=== PATIENT | female | born 1960 ===

== ENCOUNTER 2018-03-17 20:38 | Inpatient (IN) | payer MEDICARE, OTHER ==
[2018-03-17] MEDS ORDERED: Metoprolol 1 mg/ml Inj IVP ONE ×2 (20:58→21:05)
[2018-03-17 21:09] LABS: BASO # 0.1 K/uL (0.0-0.2); BASO % 0.7 % (0.0-2.0); EOS # 0.1 K/uL (0.0-0.7); EOS % 1.2 % (0.0-4.0); HEMOGLOBIN 11.8 g/dL (11.0-16.0); LYMPH # 2.9 K/uL (1.0-4.3); LYMPH % 23.2 % (20.0-40.0); MEAN CELL VOLUME 85.3 fL (81.0-99.0); MEAN CORPUSCULAR HEMOGLOBIN 28.3 pg (27.0-31.0); MEAN CORPUSCULAR HGB CONC 33.1 g/dL (33.0-37.0); MEAN PLATELET VOLUME 7.9 fL (7.2-11.7); MONO # 0.7 K/uL (0.0-0.8); MONO % 5.5 % (0.0-10.0); NEUT # 8.7 K/uL (1.8-7.0); NEUT % 69.4 % (50.0-75.0); RBC 4.19 Mil/uL (3.80-5.20); RED CELL DISTRIBUTION WIDTH 13.6 % (11.5-14.5); WHITE BLOOD COUNT 12.5 K/uL (4.8-10.8)
[2018-03-17] MEDS ORDERED: Sodium Chloride 0.9% 1,000 ML IV ONE (21:14)
--- NOTE | 2018-03-17 21:14 | C.PDOC ---
History Of Present Illness 57 y/o F c PMHx DM, fibromylagia, bipolar disorder, Depression p/w chest pain x 3 days. Pain has been worse today for the last 3 hours while patient was singing. Describes as midsternal, pressure, radiating to back, associated with nausea and lightheadedness. Denies fever, chills, dyspnea, vomiting. Denies smoking. No cardiac family history. Time Seen by Provider: 03/17/18 20:58 Chief Complaint (Nursing): Chest Pain Past Medical History Vital Signs: Last Vital Signs Temp 99.3 F 03/17/18 20:45 Pulse 92 H 03/17/18 23:15 Resp 18 03/17/18 23:15 BP 115/60 03/17/18 23:15 Pulse Ox 100 03/17/18 23:15 - Medical History PMH: Depression, Diabetes, Fibromyalgia, Osteoporosis Denies: Hepatitis, HIV, HTN, Seizures, Sexually Transmitted Disease - [facility] Procedures EXCIS CUL-DE-SAC LESION (04/15/03) INDIVID PSYCHOTHERAP NEC (04/23/13) LAPAROSCOP LYSIS-PERITONEAL ADHES (04/15/03) LAPAROSCOP OOPHOROTOMY (04/15/03) OTH LAPAROSCOP LOCAL EXCIS/DESTRUCT OVARY (04/15/03) OTHER GROUP THERAPY (04/23/13) PSYCHIAT DRUG THERAP NEC (04/23/13) Family History: States: No Known Family Hx - Social History Hx Tobacco Use: No Hx Alcohol Use: No Hx Substance Use: No - Immunization History Hx Tetanus Toxoid Vaccination: No Hx Influenza Vaccination: Yes Hx Pneumococcal Vaccination: No Review Of Systems Except As Marked, All Systems Reviewed And Found Negative. Constitutional: Negative for: Fever Respiratory: Negative for: Shortness of Breath Physical Exam - Physical Exam Additional Physical Exam Comments: Gen: Appears uncomfortable Head: NC/AT Eyes: PERRL ENT: MMM Neck: Supple Chest: No tenderness CV: Borderline tachycardia Lungs: CTA b/l Abd: Soft, NT Back: No CVA tenderness Extremities: No edema Skin: No rash Neuro: Alert, no focal deficit ED Course And Treatment - Laboratory Results Result Diagrams: 03/17/18 21:00 03/17/18 21:00 O2 Sat by Pulse Oximetry: 99 Medical Decision Making Medical Decision Making: Initial EKG Sinus rhythm, 102 bpm, ST depressions III and aVF, ST segment in I and L not 2mm elevated and convex in appearance. Discussed case with Dr. Duenas, recommends Lopressor 5 IV. Patient allergic to ASA so not given. States EKG does not meet criteria for CODE HEART. Dr. Sahu accepts patient to hospitalist service. Dr. Davalos accepts patient to ICU and recommends Brillinta. Heparin IV drip. CXR no consolidation. Disposition - Disposition Disposition: HOSPITALIZED Disposition Time: 22:00 Condition: GUARDED - POA Core Measure Indicators: Chest Pain - Clinical Impression Clinical Impression: Chest pain, Elevated troponin
[2018-03-17 21:17] LABS: INR 1.2
[2018-03-17 21:21] LABS: ALB/GLOB RATIO 1.5 (1.0-2.1); ALBUMIN 4.4 g/dL (3.5-5.0); ALT/SGPT 22 U/L (9-52); AST/SGOT 18 U/L (14-36); BLOOD UREA NITROGEN 17 mg/dL (7-17); CALCIUM 9.3 mg/dl (8.6-10.4); GFR NON-AFRICAN AMERICAN > 60
[2018-03-17 21:40] LABS: B-TYPE NATRIURETIC PEPTIDE 35.5 pg/mL (0-900); CK-MB 1.94 ng/mL (0.0-3.38)
[2018-03-17] MEDS ORDERED: Heparin25000 units/250ml 1/2NS 25,000 UNITS/250 ML BAG IV ONE (22:00)
[2018-03-17] MEDS ORDERED: (Novolog) Insulin Aspart, Recombinant 100 u/ml 10 ml vial SC SCH (22:15)
--- NOTE | 2018-03-17 22:31 | CP.PCM.CON ---
History of Present Illness - History of Present Illness History of Present Illness: 57 y/o female with pmx of DM, bi-polar disease presents to [facility] with chest pain, described as sharp, no radiation, worsen upon exertion. PAtient was seeing a psychiatrist and residential therapist (Mahi natarajan--who closed his practice as per patient.). Patient denies any dizziness. CP resolved with SL nitro. PAtietn denies any headaches, denies any abdominal pain. denies any active chest pain when being examined at bedside (PAtient recevied morphine and nitro before my examination). Few hours after re-examination revealed repeat chest pain with radiation to left shoulder. Patient's chest pain worsened ( subjectively) Pmx: DM, bipolar, fibromyalgia, HTN PSHx: Hysterectomy, Umbilical Hernia Repair Allergies: ASA SHx: deneis smoking, ETOH and illicit drugs use Fhx: father with CAD Medications: does not have with her Review of Systems - Constitutional Constitutional: As Per HPI Past Patient History - Tetanus Immunizations Tetanus Immunization: Unknown - Past Medical History & Family History Past Medical History?: Yes - Past Social History Smoking Status: Never Smoked - CARDIAC Hx Hypertension: No - PULMONARY Hx Tuberculosis: No - NEUROLOGICAL Hx Seizures: No - HEMATOLOGICAL/ONCOLOGICAL Hx Human Immunodeficiency Virus (HIV): No - MUSCULOSKELETAL/RHEUMATOLOGICAL Hx Osteoporosis: Yes - GENITOURINARY/GYNECOLOGICAL Hx Sexually Transmitted Disorders: No - PSYCHIATRIC Hx Depression: Yes Hx Substance Use: No Meds Allergies/Adverse Reactions: Allergies Allergy/AdvReac Type Severity Reaction Status Date / Time aspirin Allergy Verified 03/17/18 21:09 - Medications Medications: Current Medications Insulin Aspart (Novolog) 0 unit SC Q4H CHUY PRN Reason: Protocol Rosuvastatin Calcium (Crestor) 20 mg PO HS CHUY Physical Exam - Head Exam Head Exam: ATRAUMATIC, NORMAL INSPECTION, NORMOCEPHALIC - Eye Exam Pupil Exam: NORMAL ACCOMODATION, PERRL - ENT Exam ENT Exam: Mucous Membranes Moist - Respiratory Exam Respiratory Exam: Clear to Auscultation Bilateral, NORMAL BREATHING PATTERN - Cardiovascular Exam Cardiovascular Exam: REGULAR RHYTHM, +S1, +S2 - GI/Abdominal Exam GI & Abdominal Exam: Normal Bowel Sounds, Soft. absent: Distended, Guarding, Tenderness - Skin Skin Exam: Normal Color Results - Vital Signs Recent Vital Signs: Last Vital Signs Temp 99.3 F 03/17/18 20:45 Pulse 93 H 03/17/18 21:55 Resp 14 03/17/18 21:55 BP 122/63 03/17/18 21:55 Pulse Ox 100 03/17/18 21:55 - Labs Result Diagrams: 03/18/18 03:10 03/18/18 03:10 Labs: Laboratory Results - last 24 hr 03/17/18 03/17/18 03/17/18 20:51 21:00 21:00 WBC 12.5 H RBC 4.19 Hgb 11.8 Hct 35.8 MCV 85.3 MCH 28.3 MCHC 33.1 RDW 13.6 Plt Count 451 H D MPV 7.9 Neut % (Auto) 69.4 Lymph % (Auto) 23.2 [place] % (Auto) 5.5 Eos % (Auto) 1.2 Baso % (Auto) 0.7 Neut # (Auto) 8.7 H Lymph # (Auto) 2.9 [place] # (Auto) 0.7 Eos # (Auto) 0.1 Baso # (Auto) 0.1 PT 13.0 H INR 1.2 APTT 35 H Sodium Potassium Chloride Carbon Dioxide Anion Gap BUN Creatinine Est GFR ( Amer) Est GFR (Non-Af Amer) POC Glucose (mg/dL) 347 H Random Glucose Calcium Total Bilirubin AST ALT Alkaline Phosphatase Total Creatine Kinase CK-MB (Mass) Troponin I NT-Pro-B Natriuret Pep Total Protein Albumin Globulin Albumin/Globulin Ratio Blood Type Antibody Screen 03/17/18 03/17/18 21:00 21:03 WBC RBC Hgb Hct MCV MCH MCHC RDW Plt Count MPV Neut % (Auto) Lymph % (Auto) [place] % (Auto) Eos % (Auto) Baso % (Auto) Neut # (Auto) Lymph # (Auto) [place] # (Auto) Eos # (Auto) Baso # (Auto) PT INR APTT Sodium 135 Potassium 3.6 Chloride 98 Carbon Dioxide 19 L Anion Gap 21 H BUN 17 Creatinine 0.7 Est GFR ( Amer) > 60 Est GFR (Non-Af Amer) > 60 POC Glucose (mg/dL) Random Glucose 387 H Calcium 9.3 Total Bilirubin 0.2 AST 18 ALT 22 Alkaline Phosphatase 200 H Total Creatine Kinase 104 CK-MB (Mass) 1.94 Troponin I 0.3960 H* NT-Pro-B Natriuret Pep 35.5 Total Protein 7.2 Albumin 4.4 Globulin 2.9 Albumin/Globulin Ratio 1.5 Blood Type O POSITIVE Antibody Screen Negative Assessment & Plan - Assessment and Plan (Free Text) Assessment: Chest Pain: STAT cardiology eval, EKG reveals NSTEMI, continue lovenox, brilinta (allergic to asa), lopressor 25 mg and oral statin, obtain echo and serial trop q8hrs x3 -dm: check hba1c, patient takes 30 units of lantus and 8-10 units pre-meal -dvt ppx: lovenox -PUD pxp pepcid -Leukocytosis: suspect 2nd AR, malagon culture, serial lactic, emprically on abx, check influenza -NPO -psych: please restart home medications after checking UTox -Patient's chest pain improved with nitro -multiple diagnostic tests pending including CT chest with IV contrast, Utox, trop, repeat EKG and cardiology evaluation (Stat). Prognosis guarded - Date & Time Date: 03/17/18 Time: 22:58
[2018-03-17 22:35] LABS: B-TYPE NATRIURETIC PEPTIDE 53.9 pg/mL (0-900)
[2018-03-17] MEDS ORDERED: Sodium Chloride 0.9% 1,000 ML IV SCH (23:00)
[2018-03-17] MEDS ORDERED: (Novolog) Insulin Aspart, Recombinant 100 u/ml 10 ml vial ONE (23:20)
[2018-03-17] MEDS: (Novolog) Insulin Aspart, Recombinant 100 u/ml 10 ml vial SC SCH (23:22)
--- NOTE | 2018-03-17 23:58 | CP.PCM.HP ---
<Yvonne Short - Last Filed: 03/18/18 01:03> History of Present Illness - History of Present Illness History of Present Illness: This patient is a 57 year old female with past medical history of fibromyalgia, BiPolar Disorder, Hypertension, and diabetes who presented to the E.R complaining of 20/10 substernal, sharp chest pain that radiated to back. Her chest pain is worse with deep inspiration. Patient states her pain started around 7pm on 03/17/18 while singing in the house. Her chest pain worsened, which prompted her to come to the hospital. Patient has been experiencing chest pain intermittently at rest and during exertion for the past couple of days. She was on a sample unspecified medication by her horses or mules teamster to control her chest pain. Her insurance did not cover that medication, and she can no longer go to the horses or mules teamster anymore because they being investigated. She admits to not taking any of her medications for the past 2 weeks. Associated with her chest pain is SOB, nausea, and non-bloody vomiting x 5. Patient also complains of increasing shortness of breath while climbing the stairs. She denies any orthopnea. ROS POSITVES: Chest Pain, SOB, Nausea, Non-Bloody Vomiting, Dyspnea on exertion NEGATIVES: Fever, chills, headache, abdominal pain, changes in bowel habits, urinary symptoms. PMHx: fibromyalgia, BiPolar Disorder, Hypertension, diabetes PSHx: Hysterectomy, Umbilical Hernia Repair Allergies: ASA (Poor Circulation/Black Toe and Nails), General Anaesthesia ( Difficulty awakening) SocialHx: Denies tobacco, EtOH, and Illicit Drug use Hos: Hysterctomy FamHx: Sister - Lupus, Brother - Heart Disease (Unspecified) Meds: As per [facility] PMD: Dr. Rodas in [place] Present on Admission - Present on Admission Any Indicators Present on Admission: No Review of Systems - Review of Systems All systems: reviewed and no additional remarkable complaints except (As per HPI ) Review of Systems: As per HPI Past Patient History - Past Social History Smoking Status: Never Smoked - CARDIAC Hx Hypertension: No - PULMONARY Hx Tuberculosis: No - NEUROLOGICAL Hx Seizures: No - HEMATOLOGICAL/ONCOLOGICAL Hx Human Immunodeficiency Virus (HIV): No - MUSCULOSKELETAL/RHEUMATOLOGICAL Hx Osteoporosis: Yes - GENITOURINARY/GYNECOLOGICAL Hx Sexually Transmitted Disorders: No - PSYCHIATRIC Hx Depression: Yes Hx Substance Use: No Meds Allergies/Adverse Reactions: Allergies Allergy/AdvReac Type Severity Reaction Status Date / Time aspirin Allergy Verified 03/17/18 21:09 Physical Exam - Constitutional Appears: Well, Non-toxic, No Acute Distress - Head Exam Head Exam: ATRAUMATIC, NORMAL INSPECTION, NORMOCEPHALIC - Eye Exam Eye Exam: EOMI, Normal appearance. absent: Scleral icterus - ENT Exam ENT Exam: Mucous Membranes Moist - Neck Exam Neck exam: Positive for: Normal Inspection - Respiratory Exam Respiratory Exam: Clear to Auscultation Bilateral, NORMAL BREATHING PATTERN. absent: Accessory Muscle Use, Decreased Breath Sounds, Rales, Rhonchi, Wheezes, Stridor - Cardiovascular Exam Cardiovascular Exam: Tachycardia, REGULAR RHYTHM, +S1, +S2. absent: Clicks, Diastolic murmur, JVD, RRR, +S4 - GI/Abdominal Exam GI & Abdominal Exam: Normal Bowel Sounds, Soft. absent: Tenderness - Extremities Exam Extremities exam: Positive for: normal capillary refill, normal inspection, tenderness. Negative for: pedal edema - Neurological Exam Neurological exam: Alert, Oriented x3 - Psychiatric Exam Psychiatric exam: Normal Affect, Normal Mood - Skin Skin Exam: Dry, Intact, Normal Color, Warm Results - Vital Signs Recent Vital Signs: Last Vital Signs Temp 99.3 F 03/17/18 20:45 Pulse 92 H 03/17/18 23:15 Resp 18 03/17/18 23:15 BP 115/60 03/17/18 23:15 Pulse Ox 100 03/17/18 23:15 - Labs Result Diagrams: 03/17/18 21:00 03/17/18 21:00 Labs: Laboratory Results - last 24 hr 03/17/18 03/17/18 03/17/18 20:51 21:00 21:00 WBC 12.5 H RBC 4.19 Hgb 11.8 Hct 35.8 MCV 85.3 MCH 28.3 MCHC 33.1 RDW 13.6 Plt Count 451 H D MPV 7.9 Neut % (Auto) 69.4 Lymph % (Auto) 23.2 [place] % (Auto) 5.5 Eos % (Auto) 1.2 Baso % (Auto) 0.7 Neut # (Auto) 8.7 H Lymph # (Auto) 2.9 [place] # (Auto) 0.7 Eos # (Auto) 0.1 Baso # (Auto) 0.1 PT 13.0 H INR 1.2 APTT 35 H Sodium Potassium Chloride Carbon Dioxide Anion Gap BUN Creatinine Est GFR ( Amer) Est GFR (Non-Af Amer) POC Glucose (mg/dL) 347 H Random Glucose Calcium Total Bilirubin AST ALT Alkaline Phosphatase Total Creatine Kinase CK-MB (Mass) Troponin I NT-Pro-B Natriuret Pep Total Protein Albumin Globulin Albumin/Globulin Ratio B-Hydroxybutyrate Blood Type Antibody Screen 03/17/18 03/17/18 03/17/18 21:00 21:03 22:10 WBC RBC Hgb Hct MCV MCH MCHC RDW Plt Count MPV Neut % (Auto) Lymph % (Auto) [place] % (Auto) Eos % (Auto) Baso % (Auto) Neut # (Auto) Lymph # (Auto) [place] # (Auto) Eos # (Auto) Baso # (Auto) PT INR APTT Sodium 135 Potassium 3.6 Chloride 98 Carbon Dioxide 19 L Anion Gap 21 H BUN 17 Creatinine 0.7 Est GFR ( Amer) > 60 Est GFR (Non-Af Amer) > 60 POC Glucose (mg/dL) Random Glucose 387 H Calcium 9.3 Total Bilirubin 0.2 AST 18 ALT 22 Alkaline Phosphatase 200 H Total Creatine Kinase 104 CK-MB (Mass) 1.94 Troponin I 0.3960 H* NT-Pro-B Natriuret Pep 35.5 53.9 Total Protein 7.2 Albumin 4.4 Globulin 2.9 Albumin/Globulin Ratio 1.5 B-Hydroxybutyrate 0.22 Blood Type O POSITIVE Antibody Screen Negative Assessment & Plan - Assessment and Plan (Free Text) Assessment: 57 year old female with past medical history of fibromyalgia, BiPolar Disorder, Hypertension, and diabetes who presented to the E.R complaining of 20/10 substernal, sharp chest pain that radiated to back. Patient admitted for NSTEMI. Plan: NSTEMI EKG (Adm): Initial EKG Sinus rhythm, 102 bpm, ST depressions III and aVF, ST segment in I and L not 2mm elevated and convex in appearance. EKG 2/3 Troponins #1 Elevated. Troponin #2/3- PENDING ED Course: NS Bolus, Nitro Tab, Morphine 2mg IVP ONce, Lopressor 5mg ONCE, Heparin Bolus/Drip(DC'd), Brillinta 90mg BNP - 35.5 -->53.9 ANUSHKA x 2 EKG x 2 CTA Cardiology Consult ( Dr. Duenas) UDS TSH/Free T4 ECHO Lipid Panel in AM Lovenox 60mg Q12 NS @ 75mls/hr Rosuvastatin 20mg PO HS Hx of Diabetes Type II Insulin Aspart Q6H for now Restart Home Medications once confirmed (Except Metformin) HgBA1C - F/U Hx of HTN Home Meds: Enalapril 25mg PO Daily Consider adding Beta Zakia to control HR. Hx of Psych Disorders including BiPolar Home Meds: Lexapro 5mg Daily Mirtazapine 45 mg PO Daily Cont. Other Home Meds when confirmed. Patient's brother to bring medication list in the morning. Proph Lovenox Pepcid NPO Patient seen and discussed with Attending (Dr. Sahu) Yvonne Short, PGY-1 <Marcus Sahu P - Last Filed: 03/18/18 06:58> Results - Vital Signs Recent Vital Signs: Last Vital Signs Temp 99.1 F 03/18/18 00:00 Pulse 97 H 03/18/18 06:03 Resp 16 03/18/18 06:03 BP 93/55 L 03/18/18 06:04 Pulse Ox 99 03/18/18 06:03 - Labs Result Diagrams: 03/18/18 03:10 03/18/18 03:10 Labs: Laboratory Results - last 24 hr 03/17/18 03/17/18 03/17/18 20:51 21:00 21:00 WBC 12.5 H RBC 4.19 Hgb 11.8 Hct 35.8 MCV 85.3 MCH 28.3 MCHC 33.1 RDW 13.6 Plt Count 451 H D MPV 7.9 Neut % (Auto) 69.4 Lymph % (Auto) 23.2 [place] % (Auto) 5.5 Eos % (Auto) 1.2 Baso % (Auto) 0.7 Neut # (Auto) 8.7 H Lymph # (Auto) 2.9 [place] # (Auto) 0.7 Eos # (Auto) 0.1 Baso # (Auto) 0.1 PT 13.0 H INR 1.2 APTT 35 H Sodium Potassium Chloride Carbon Dioxide Anion Gap BUN Creatinine Est GFR ( Amer) Est GFR (Non-Af Amer) POC Glucose (mg/dL) 347 H Random Glucose Calcium Magnesium Total Bilirubin AST ALT Alkaline Phosphatase Total Creatine Kinase CK-MB (Mass) Troponin I NT-Pro-B Natriuret Pep Total Protein Albumin Globulin Albumin/Globulin Ratio Triglycerides Cholesterol LDL Cholesterol Direct HDL Cholesterol Free T4 TSH 3rd Generation B-Hydroxybutyrate Blood Type Antibody Screen 03/17/18 03/17/18 03/17/18 21:00 21:03 22:10 WBC RBC Hgb Hct MCV MCH MCHC RDW Plt Count MPV Neut % (Auto) Lymph % (Auto) [place] % (Auto) Eos % (Auto) Baso % (Auto) Neut # (Auto) Lymph # (Auto) [place] # (Auto) Eos # (Auto) Baso # (Auto) PT INR APTT Sodium 135 Potassium 3.6 Chloride 98 Carbon Dioxide 19 L Anion Gap 21 H BUN 17 Creatinine 0.7 Est GFR ( Amer) > 60 Est GFR (Non-Af Amer) > 60 POC Glucose (mg/dL) Random Glucose 387 H Calcium 9.3 Magnesium Total Bilirubin 0.2 AST 18 ALT 22 Alkaline Phosphatase 200 H Total Creatine Kinase 104 CK-MB (Mass) 1.94 Troponin I 0.3960 H* NT-Pro-B Natriuret Pep 35.5 53.9 Total Protein 7.2 Albumin 4.4 Globulin 2.9 Albumin/Globulin Ratio 1.5 Triglycerides Cholesterol LDL Cholesterol Direct HDL Cholesterol Free T4 TSH 3rd Generation B-Hydroxybutyrate 0.22 Blood Type O POSITIVE Antibody Screen Negative 03/18/18 03/18/18 03/18/18 01:02 02:33 03:10 WBC RBC Hgb Hct MCV MCH MCHC RDW Plt Count MPV Neut % (Auto) Lymph % (Auto) [place] % (Auto) Eos % (Auto) Baso % (Auto) Neut # (Auto) Lymph # (Auto) [place] # (Auto) Eos # (Auto) Baso # (Auto) PT INR APTT Sodium Potassium Chloride Carbon Dioxide Anion Gap BUN Creatinine Est GFR ( Amer) Est GFR (Non-Af Amer) POC Glucose (mg/dL) 266 H Random Glucose Calcium Magnesium Total Bilirubin AST ALT Alkaline Phosphatase Total Creatine Kinase CK-MB (Mass) Troponin I NT-Pro-B Natriuret Pep Total Protein Albumin Globulin Albumin/Globulin Ratio Triglycerides Cholesterol LDL Cholesterol Direct HDL Cholesterol Free T4 1.24 TSH 3rd Generation 3.34 B-Hydroxybutyrate Blood Type Antibody Screen 03/18/18 03/18/18 03/18/18 03:10 03:10 03:10 WBC 17.3 H RBC 4.01 Hgb 11.1 Hct 33.2 L MCV 82.6 D MCH 27.6 MCHC 33.4 RDW 13.1 Plt Count 444 H MPV 8.2 Neut % (Auto) 72.9 Lymph % (Auto) 21.8 [place] % (Auto) 4.6 Eos % (Auto) 0.2 Baso % (Auto) 0.5 Neut # (Auto) 12.6 H Lymph # (Auto) 3.8 [place] # (Auto) 0.8 Eos # (Auto) 0.0 Baso # (Auto) 0.1 PT 13.8 H INR 1.3 APTT 41 H D Sodium 138 Potassium 4.4 Chloride 104 Carbon Dioxide 21 L Anion Gap 17 BUN 15 Creatinine 0.7 Est GFR ( Amer) > 60 Est GFR (Non-Af Amer) > 60 POC Glucose (mg/dL) Random Glucose 278 H Calcium 9.1 Magnesium 1.9 Total Bilirubin 0.4 AST 30 ALT 29 Alkaline Phosphatase 164 H Total Creatine Kinase 224 H CK-MB (Mass) 10.9 H Troponin I 3.5700 H* NT-Pro-B Natriuret Pep Total Protein 7.1 Albumin 4.2 Globulin 3.0 Albumin/Globulin Ratio 1.4 Triglycerides 122 Cholesterol 169 LDL Cholesterol Direct 85 HDL Cholesterol 53 Free T4 TSH 3rd Generation B-Hydroxybutyrate Blood Type Antibody Screen 03/18/18 06:25 WBC RBC Hgb Hct MCV MCH MCHC RDW Plt Count MPV Neut % (Auto) Lymph % (Auto) [place] % (Auto) Eos % (Auto) Baso % (Auto) Neut # (Auto) Lymph # (Auto) [place] # (Auto) Eos # (Auto) Baso # (Auto) PT INR APTT Sodium Potassium Chloride Carbon Dioxide Anion Gap BUN Creatinine Est GFR ( Amer) Est GFR (Non-Af Amer) POC Glucose (mg/dL) 304 H Random Glucose Calcium Magnesium Total Bilirubin AST ALT Alkaline Phosphatase Total Creatine Kinase CK-MB (Mass) Troponin I NT-Pro-B Natriuret Pep Total Protein Albumin Globulin Albumin/Globulin Ratio Triglycerides Cholesterol LDL Cholesterol Direct HDL Cholesterol Free T4 TSH 3rd Generation B-Hydroxybutyrate Blood Type Antibody Screen Attending/Attestation - Attestation I have personally seen and examined this patient.: Yes I have fully participated in the care of the patient.: Yes I have reviewed all pertinent clinical information: Yes Notes (Text): Assessment * NSTEMI * Pleuritic/pericardial pain in the precordium with deep breathing and laying down, CTA done negative for PE, b/l infiltrated noticed with left lingular lobe consolidation, dd of interstitial edema form CHF/ischemia * DM uncontrolled * H/o Bipolar disorder * H/o fibromayalgia Plan * Brilianta, betablocker, crestor, acei, statin,therapeutic lovenox allergic to aspirin * Empiric abx * Cardilogy Dr Duenas consulted * Admitted to ICU * Home meds * See orders for detail.
[2018-03-18] MEDS ORDERED: Iodixanol 320 MG/ML 100 ML BOTTLE IV ONE ×2 (01:39→20:25)
[2018-03-18 03:13] LABS: BASO # 0.1 K/uL (0.0-0.2); BASO % 0.5 % (0.0-2.0); EOS % 0.2 % (0.0-4.0); HEMOGLOBIN 11.1 g/dL (11.0-16.0); LYMPH # 3.8 K/uL (1.0-4.3); LYMPH % 21.8 % (20.0-40.0); MEAN CELL VOLUME 82.6 fL (81.0-99.0); MEAN CORPUSCULAR HEMOGLOBIN 27.6 pg (27.0-31.0); MEAN CORPUSCULAR HGB CONC 33.4 g/dL (33.0-37.0); MEAN PLATELET VOLUME 8.2 fL (7.2-11.7); MONO # 0.8 K/uL (0.0-0.8); MONO % 4.6 % (0.0-10.0); NEUT # 12.6 K/uL (1.8-7.0); NEUT % 72.9 % (50.0-75.0); RBC 4.01 Mil/uL (3.80-5.20); RED CELL DISTRIBUTION WIDTH 13.1 % (11.5-14.5); WHITE BLOOD COUNT 17.3 K/uL (4.8-10.8)
[2018-03-18 03:21] LABS: INR 1.3; PROTHROMBIN TIME 13.8 SECONDS (9.7-12.2)
[2018-03-18 03:26] LABS: ALB/GLOB RATIO 1.4 (1.0-2.1); ALBUMIN 4.2 g/dL (3.5-5.0); ALT/SGPT 29 U/L (9-52); AST/SGOT 30 U/L (14-36); BLOOD UREA NITROGEN 15 mg/dL (7-17); CALCIUM 9.1 mg/dl (8.6-10.4); GFR NON-AFRICAN AMERICAN > 60; HDL CHOLESTEROL 53 mg/dL (30-70)
[2018-03-18] MEDS: Enoxaparin 60 mg Syringe SC SCH ×2 (03:26→17:01)
[2018-03-18] MEDS ORDERED: Enoxaparin 60 mg Syringe SC SCH ×2 (03:30→10:00)
[2018-03-18 03:36] LABS: LDL CHOLESTEROL 85 mg/dL (0-129)
[2018-03-18 03:42] LABS: CK-MB 10.9 ng/mL (0.0-3.38)
[2018-03-18] MEDS: (Novolog) Insulin Aspart, Recombinant 100 u/ml 10 ml vial SC SCH ×4 (06:25→21:35)
--- NOTE | 2018-03-18 06:32 | CP.PCM.CON ---
History of Present Illness - History of Present Illness History of Present Illness: NSTEMI HPI: 57 year old female with hx of HTN, DM presenting with CP and SOB x 3 days intermittently which got worse yesterday while she was singing at her brothers house. EKG had some dynamic changes in high lateral leads which resolved after nitroglycerin. TnI peaked at 3 . - History of Present Illness History of Present Illness: This patient is a 57 year old female with past medical history of fibromyalgia, BiPolar Disorder, Hypertension, and diabetes who presented to the E.R complaining of 20/10 substernal, sharp chest pain that radiated to back. Her chest pain is worse with deep inspiration. Patient states her pain started around 7pm on 03/17/18 while singing in the house. Her chest pain worsened, which prompted her to come to the hospital. Patient has been experiencing chest pain intermittently at rest and during exertion for the past couple of days. She was on a sample unspecified medication by her mounting machine operator to control her chest pain. Her insurance did not cover that medication, and she can no longer go to the mounting machine operator anymore because they being investigated. She admits to not taking any of her medications for the past 2 weeks. Associated with her chest pain is SOB, nausea, and non-bloody vomiting x 5. Patient also complains of increasing shortness of breath while climbing the stairs. She denies any orthopnea. ROS POSITVES: Chest Pain, SOB, Nausea, Non-Bloody Vomiting, Dyspnea on exertion NEGATIVES: Fever, chills, headache, abdominal pain, changes in bowel habits, urinary symptoms. PMHx: fibromyalgia, BiPolar Disorder, Hypertension, diabetes PSHx: Hysterectomy, Umbilical Hernia Repair Allergies: ASA (Poor Circulation/Black Toe and Nails), General Anaesthesia ( Difficulty awakening) SocialHx: Denies tobacco, EtOH, and Illicit Drug use Hos: Hysterctomy FamHx: Sister - Lupus, Brother - Heart Disease (Unspecified) Meds: As per SEP PMD: Dr. oRdas in [place] Review of Systems - Review of Systems Systems not reviewed;Unavailable: Acuity of Condition - Constitutional Constitutional: As Per HPI - EENT Eyes: As Per HPI Ears: As Per HPI Nose/Mouth/Throat: As Per HPI - Breasts Breasts: As Per HPI - Cardiovascular Cardiovascular: As Per HPI - Respiratory Respiratory: As Per HPI - Gastrointestinal Gastrointestinal: As Per HPI - Genitourinary Genitourinary: As Per HPI - Reproductive: Female Reproductive:Female: As Per HPI - Menstruation Menstruation: As Per HPI - Musculoskeletal Musculoskeletal: As Per HPI - Integumentary Integumentary: As Per HPI - Neurological Neurological: As Per HPI - Psychiatric Psychiatric: As Per HPI - Endocrine Endocrine: As Per HPI - Hematologic/Lymphatic Hematologic: As Per HPI Past Patient History - Tetanus Immunizations Tetanus Immunization: Unknown - Past Medical History & Family History Past Medical History?: Yes - Past Social History Smoking Status: Never Smoked - CARDIAC Hx Hypertension: No - PULMONARY Hx Tuberculosis: No - NEUROLOGICAL Hx Seizures: No - ENDOCRINE/METABOLIC Hx Diabetes Mellitus Type 2: Yes - HEMATOLOGICAL/ONCOLOGICAL Hx Human Immunodeficiency Virus (HIV): No - MUSCULOSKELETAL/RHEUMATOLOGICAL Hx Osteoporosis: Yes - GENITOURINARY/GYNECOLOGICAL Hx Sexually Transmitted Disorders: No - PSYCHIATRIC Hx Depression: Yes Hx Substance Use: No - SURGICAL HISTORY Hx Hysterectomy: Yes Other/Comment: Hysterectomy 20 years ago. - ANESTHESIA Hx Anesthesia: Yes Hx Anesthesia Reactions: No Hx Malignant Hyperthermia: No Has any member of the family had a problem w/ anesthesia?: No Meds Allergies/Adverse Reactions: Allergies Allergy/AdvReac Type Severity Reaction Status Date / Time aspirin Allergy Verified 03/17/18 21:09 - Medications Medications: Current Medications Enoxaparin Sodium (Lovenox) 60 mg SC Q12H [facility] Last Admin: 03/18/18 03:26 Dose: 60 mg Escitalopram Oxalate (Lexapro) 5 mg PO DAILY [facility] Famotidine (Pepcid) 40 mg PO DAILY [facility] Home Med (Cholecalciferol (Vitamin D3) [Vitamin D-400]) 400 unit PO DAILY [facility] Home Med (Enalapril) 25 mg PO DAILY [facility] Doxycycline Hyclate 100 mg/ (Sodium Chloride) 100 mls @ 100 mls/hr IVPB Q12H [facility] PRN Reason: Protocol Last Admin: 03/18/18 03:27 Dose: 100 mls/hr Ceftriaxone Sodium 1 gm/ (Sodium Chloride) 100 mls @ 100 mls/hr IVPB DAILY [facility] PRN Reason: Protocol Insulin Aspart (Novolog) 0 unit SC Q6H [facility] PRN Reason: Protocol Last Admin: 03/17/18 23:22 Dose: 3 units Mirtazapine (Remeron) 45 mg PO DAILY [facility] Rosuvastatin Calcium (Crestor) 20 mg PO HS [facility] Ticagrelor (Brilinta) 90 mg PO BID [facility] Physical Exam - Constitutional Appears: Well - Head Exam Head Exam: ATRAUMATIC, NORMAL INSPECTION, NORMOCEPHALIC - Eye Exam Eye Exam: EOMI, Normal appearance, PERRL Pupil Exam: NORMAL ACCOMODATION, PERRL - ENT Exam ENT Exam: Mucous Membranes Moist, Normal Exam - Neck Exam Neck exam: Positive for: Normal Inspection - Respiratory Exam Respiratory Exam: Clear to Auscultation Bilateral, NORMAL BREATHING PATTERN - Cardiovascular Exam Cardiovascular Exam: REGULAR RHYTHM - GI/Abdominal Exam GI & Abdominal Exam: Normal Bowel Sounds, Soft. absent: Tenderness - Extremities Exam Extremities exam: Positive for: normal inspection - Back Exam Back exam: NORMAL INSPECTION - Neurological Exam Neurological exam: Alert, CN II-XII Intact, Normal Gait, Oriented x3, Reflexes Normal - Psychiatric Exam Psychiatric exam: Normal Affect, Normal Mood - Skin Skin Exam: Dry, Intact, Normal Color, Warm Results - Vital Signs Recent Vital Signs: Last Vital Signs Temp 99.1 F 03/18/18 00:00 Pulse 97 H 03/18/18 06:03 Resp 16 03/18/18 06:03 BP 93/55 L 03/18/18 06:04 Pulse Ox 99 03/18/18 06:03 - Labs Result Diagrams: 03/18/18 03:10 03/18/18 03:10 Labs: Laboratory Results - last 24 hr 03/17/18 03/17/18 03/17/18 20:51 21:00 21:00 WBC 12.5 H RBC 4.19 Hgb 11.8 Hct 35.8 MCV 85.3 MCH 28.3 MCHC 33.1 RDW 13.6 Plt Count 451 H D MPV 7.9 Neut % (Auto) 69.4 Lymph % (Auto) 23.2 Hand % (Auto) 5.5 Eos % (Auto) 1.2 Baso % (Auto) 0.7 Neut # (Auto) 8.7 H Lymph # (Auto) 2.9 Hand # (Auto) 0.7 Eos # (Auto) 0.1 Baso # (Auto) 0.1 PT 13.0 H INR 1.2 APTT 35 H Sodium Potassium Chloride Carbon Dioxide Anion Gap BUN Creatinine Est GFR ( Amer) Est GFR (Non-Af Amer) POC Glucose (mg/dL) 347 H Random Glucose Calcium Magnesium Total Bilirubin AST ALT Alkaline Phosphatase Total Creatine Kinase CK-MB (Mass) Troponin I NT-Pro-B Natriuret Pep Total Protein Albumin Globulin Albumin/Globulin Ratio Triglycerides Cholesterol LDL Cholesterol Direct HDL Cholesterol Free T4 TSH 3rd Generation B-Hydroxybutyrate Blood Type Antibody Screen 03/17/18 03/17/18 03/17/18 21:00 21:03 22:10 WBC RBC Hgb Hct MCV MCH MCHC RDW Plt Count MPV Neut % (Auto) Lymph % (Auto) Hand % (Auto) Eos % (Auto) Baso % (Auto) Neut # (Auto) Lymph # (Auto) Hand # (Auto) Eos # (Auto) Baso # (Auto) PT INR APTT Sodium 135 Potassium 3.6 Chloride 98 Carbon Dioxide 19 L Anion Gap 21 H BUN 17 Creatinine 0.7 Est GFR ( Amer) > 60 Est GFR (Non-Af Amer) > 60 POC Glucose (mg/dL) Random Glucose 387 H Calcium 9.3 Magnesium Total Bilirubin 0.2 AST 18 ALT 22 Alkaline Phosphatase 200 H Total Creatine Kinase 104 CK-MB (Mass) 1.94 Troponin I 0.3960 H* NT-Pro-B Natriuret Pep 35.5 53.9 Total Protein 7.2 Albumin 4.4 Globulin 2.9 Albumin/Globulin Ratio 1.5 Triglycerides Cholesterol LDL Cholesterol Direct HDL Cholesterol Free T4 TSH 3rd Generation B-Hydroxybutyrate 0.22 Blood Type O POSITIVE Antibody Screen Negative 03/18/18 03/18/18 03/18/18 01:02 02:33 03:10 WBC RBC Hgb Hct MCV MCH MCHC RDW Plt Count MPV Neut % (Auto) Lymph % (Auto) Hand % (Auto) Eos % (Auto) Baso % (Auto) Neut # (Auto) Lymph # (Auto) Hand # (Auto) Eos # (Auto) Baso # (Auto) PT INR APTT Sodium Potassium Chloride Carbon Dioxide Anion Gap BUN Creatinine Est GFR ( Amer) Est GFR (Non-Af Amer) POC Glucose (mg/dL) 266 H Random Glucose Calcium Magnesium Total Bilirubin AST ALT Alkaline Phosphatase Total Creatine Kinase CK-MB (Mass) Troponin I NT-Pro-B Natriuret Pep Total Protein Albumin Globulin Albumin/Globulin Ratio Triglycerides Cholesterol LDL Cholesterol Direct HDL Cholesterol Free T4 1.24 TSH 3rd Generation 3.34 B-Hydroxybutyrate Blood Type Antibody Screen 03/18/18 03/18/18 03/18/18 03:10 03:10 03:10 WBC 17.3 H RBC 4.01 Hgb 11.1 Hct 33.2 L MCV 82.6 D MCH 27.6 MCHC 33.4 RDW 13.1 Plt Count 444 H MPV 8.2 Neut % (Auto) 72.9 Lymph % (Auto) 21.8 Hand % (Auto) 4.6 Eos % (Auto) 0.2 Baso % (Auto) 0.5 Neut # (Auto) 12.6 H Lymph # (Auto) 3.8 Hand # (Auto) 0.8 Eos # (Auto) 0.0 Baso # (Auto) 0.1 PT 13.8 H INR 1.3 APTT 41 H D Sodium 138 Potassium 4.4 Chloride 104 Carbon Dioxide 21 L Anion Gap 17 BUN 15 Creatinine 0.7 Est GFR ( Amer) > 60 Est GFR (Non-Af Amer) > 60 POC Glucose (mg/dL) Random Glucose 278 H Calcium 9.1 Magnesium 1.9 Total Bilirubin 0.4 AST 30 ALT 29 Alkaline Phosphatase 164 H Total Creatine Kinase 224 H CK-MB (Mass) 10.9 H Troponin I 3.5700 H* NT-Pro-B Natriuret Pep Total Protein 7.1 Albumin 4.2 Globulin 3.0 Albumin/Globulin Ratio 1.4 Triglycerides 122 Cholesterol 169 LDL Cholesterol Direct 85 HDL Cholesterol 53 Free T4 TSH 3rd Generation B-Hydroxybutyrate Blood Type Antibody Screen 03/18/18 06:25 WBC RBC Hgb Hct MCV MCH MCHC RDW Plt Count MPV Neut % (Auto) Lymph % (Auto) Hand % (Auto) Eos % (Auto) Baso % (Auto) Neut # (Auto) Lymph # (Auto) Hand # (Auto) Eos # (Auto) Baso # (Auto) PT INR APTT Sodium Potassium Chloride Carbon Dioxide Anion Gap BUN Creatinine Est GFR ( Amer) Est GFR (Non-Af Amer) POC Glucose (mg/dL) 304 H Random Glucose Calcium Magnesium Total Bilirubin AST ALT Alkaline Phosphatase Total Creatine Kinase CK-MB (Mass) Troponin I NT-Pro-B Natriuret Pep Total Protein Albumin Globulin Albumin/Globulin Ratio Triglycerides Cholesterol LDL Cholesterol Direct HDL Cholesterol Free T4 TSH 3rd Generation B-Hydroxybutyrate Blood Type Antibody Screen Assessment & Plan (1) NSTEMI (non-ST elevated myocardial infarction) Assessment and Plan: lovenox asa brilinta statins bb echo plan for cath this pm npo p bf Status: Acute (2) Chest pain due to CAD Status: Acute (3) HTN (hypertension) Status: Acute (4) Tachyarrhythmia Status: Acute (5) Dyslipidemia Status: Acute
--- NOTE | 2018-03-18 09:08 | RAD ---
Date of service: 03/17/2018 HISTORY: chest pain bed 10 COMPARISON: 08/05/2013 FINDINGS: LUNGS: The lungs are well inflated. There is left basilar atelectasis. PLEURA: No significant pleural effusion identified, no pneumothorax apparent. CARDIOVASCULAR: Normal. OSSEOUS STRUCTURES: No significant abnormalities. VISUALIZED UPPER ABDOMEN: Normal. OTHER FINDINGS: None. IMPRESSION: No acute findings.
--- NOTE | 2018-03-18 09:28 | CP.PCM.PN ---
Subjective - Date & Time of Evaluation Date of Evaluation: 03/18/18 Time of Evaluation: 09:20 - Subjective Subjective: Medical Attending Note: Patient seen and examined this morning. Patient reports left side chest pain that travels to the back, about 3/10 on pain scale. Patient reports she feels nauseous but has not thrown up today. patient denies vomitting, denies abdominal pain, reports urinary frequency, denies hematuria, denies dysuria. Patient reports has had alc of 12 in 3-4 months ago in the clinic. She reports she gets her medications filled at [place] [facility]. She reports the allergic reaction to aspirin that it causes poor circulation and toes to become black and blue. She reports she defers to her son, Apollo, if she cannot make any medical decisions and reports she wants her medical information communicated with her boyfriend. She understands she is scheduled for cardiac cath this morning. Objective - Vital Signs/Intake and Output Vital Signs (last 24 hours): Temp Pulse Resp BP Pulse Ox 98.8 F 95 H 15 105/62 99 03/18/18 08:00 03/18/18 08:30 03/18/18 08:30 03/18/18 08:04 03/18/18 08:30 Intake and Output: 03/18/18 03/18/18 06:59 18:59 Intake Total 300 Output Total 300 Balance 0 - Medications Medications: Current Medications Carvedilol (Coreg) 6.25 mg PO BID [facility] Enoxaparin Sodium (Lovenox) 60 mg SC Q12H [facility] Last Admin: 03/18/18 03:26 Dose: 60 mg Ergocalciferol (Drisdol 50,000 Intl Units Cap) 1 cap PO QWK [facility] Escitalopram Oxalate (Lexapro) 5 mg PO DAILY [facility] Famotidine (Pepcid) 40 mg PO DAILY [facility] Doxycycline Hyclate 100 mg/ (Sodium Chloride) 100 mls @ 100 mls/hr IVPB Q12H [facility] PRN Reason: Protocol Last Admin: 03/18/18 03:27 Dose: 100 mls/hr Ceftriaxone Sodium 1 gm/ (Sodium Chloride) 100 mls @ 100 mls/hr IVPB DAILY [facility] PRN Reason: Protocol Insulin Aspart (Novolog) 0 unit SC Q6H [facility] PRN Reason: Protocol Last Admin: 03/18/18 06:25 Dose: Not Given Mirtazapine (Remeron) 45 mg PO DAILY [facility] Rosuvastatin Calcium (Crestor) 20 mg PO HS [facility] Saccharomyces Boulardii (Florastor) 250 mg PO BID [facility] Ticagrelor (Brilinta) 90 mg PO BID [facility] - Labs Labs: 03/18/18 03:10 03/18/18 03:10 PT 13.8 SECONDS (9.7-12.2) H 03/18/18 03:10 INR 1.3 03/18/18 03:10 APTT 41 SECONDS (21-34) H D 03/18/18 03:10 - Constitutional Appears: Non-toxic, No Acute Distress, Unkempt - Head Exam Head Exam: NORMAL INSPECTION - Eye Exam Eye Exam: EOMI - ENT Exam ENT Exam: Mucous Membranes Moist - Respiratory Exam Respiratory Exam: Clear to Ausculation Bilateral. absent: Rales, Rhonchi, Stridor - Cardiovascular Exam Cardiovascular Exam: REGULAR RHYTHM, +S1, +S2 Additional comments: tender to palpation - GI/Abdominal Exam GI & Abdominal Exam: Soft, Normal Bowel Sounds. absent: Distended, Firm, Guarding, Rigid, Tenderness, Rebound - Extremities Exam Extremities Exam: absent: Pedal Edema, Tenderness - Neurological Exam Neurological Exam: Alert, Awake, Oriented x3 - Psychiatric Exam Psychiatric exam: Normal Affect, Normal Mood - Skin Skin Exam: Dry, Normal Color, Warm Assessment and Plan (1) NSTEMI (non-ST elevated myocardial infarction) Assessment & Plan: * Admitted to ICU * Abnormal EKG with elevated troponins * Cardiology (Dr. Duenas) on case-->help appreciated * Scheduled for cardiac cath this morning * Pending echocardiogram * Patient is allergic to aspirin * Brilinta 90mg PO BID * Coreg 6.25mg PO BID * Crestor 20mg POqHS * Start Lisinopril 2.5mg PO daily * ALEXIA: 3 13% risk at 14 dats of all cause mortality, new or recurrent NC or sevre recurrent ischemia requiring urgent revascularization * Chest xray (03/17/18): no acute findings; left basilar atelectasis * Pending official report of CT angio * Lipid panel: 122, chol: 169, LDL: 85, HDL: 53 * a1c: 9.7 * TSH: 3.34 Free T4: 1.24 Status: Acute (2) Chest pain due to CAD Assessment & Plan: * Admitted to ICU * Abnormal EKG with elevated troponins * Risk factor: female, diabetes, hypertension * Cardiology (Dr. Duenas) on case-->help appreciated * Scheduled for cardiac cath this morning * Pending echocardiogram * Patient is allergic to aspirin * Brilinta 90mg PO BID * Coreg 6.25mg PO BID * Crestor 20mg POqHS * Start Lisinopril 2.5mg PO daily * ALEXIA: 3 13% risk at 14 dats of all cause mortality, new or recurrent NC or sevre recurrent ischemia requiring urgent revascularization * Chest xray (03/17/18): no acute findings; left basilar atelectasis * Pending official report of CT angio * Lipid panel: 122, chol: 169, LDL: 85, HDL: 53 * a1c: 9.7 * TSH: 3.34 Free T4: 1.24 Status: Acute (3) Dyslipidemia Assessment & Plan: * Lipid panel: 122, chol: 169, LDL: 85, HDL: 53 * Crestor 20mg POqHS Status: Chronic (4) HTN (hypertension) Assessment & Plan: coreg 6.25mg PO BID start Lisinopril 2.5mg Po daily monitor vital signs patient is allergic to aspirin Status: Chronic (5) Diabetes mellitus Assessment & Plan: * Lipid panel: 122, chol: 169, LDL: 85, HDL: 53 * a1c: 9.7 * TSH: 3.34 Free T4: 1.24 * start lisinopril 2.5mg Po daily * patient is allergic to aspirin Status: Chronic (6) Bipolar disorder Assessment & Plan: patient does not remember all her medications Her pharmacy is [facility]: [phone] which opens at 10am--->will need to call since patient does not remember her medications. Status: Chronic (7) Prophylactic measure Assessment & Plan: Therapeutic lovenox for nonstemi Status: Acute
[2018-03-18] MEDS ORDERED: Pantoprazole 40 mg EC Tab PO SCH (10:00)
[2018-03-18] MEDS ORDERED: Ergocalciferol 50,000 Intl Units Cap PO SCH (10:00)
[2018-03-18] MEDS ORDERED: ENALAPRIL PO SCH (10:00)
[2018-03-18 10:06] LABS: CK-MB 9.42 ng/mL (0.0-3.38); TROPONIN I 3.43 ng/mL (0.00-0.120)
[2018-03-18] MEDS: Saccharomyces Boulardi 250 mg Cap PO SCH ×2 (10:14→19:35)
--- NOTE | 2018-03-18 10:39 | CT ---
Date of service: 03/18/2018 PROCEDURE: CT Chest with contrast (Pulmonary Angiogram) HISTORY: Chest Pain COMPARISON: None available. TECHNIQUE: Axial computed tomography images were obtained of the chest in the pulmonary arterial phase of enhancement. Coronal and sagittal reformatted images were created and reviewed. Intravenous contrast dose: 100 cc Visipaque 320 Radiation dose: Total exam DLP = 255.98 mGy-cm. This CT exam was performed using one or more of the following dose reduction techniques: Automated exposure control, adjustment of the mA and/or kV according to patient size, and/or use of iterative reconstruction technique. FINDINGS: PULMONARY ARTERIES: Unremarkable. No pulmonary embolism. AORTA: No acute findings. No thoracic aortic aneurysm. LUNGS: Mild interlobular septal thickening with patchy ground-glass opacities/atelectasis seen in the lower lobes of particularly prominent in the lung bases. Collectively the findings are consistent with pulmonary edema. PLEURAL SPACES: Unremarkable. No effusion or pneumothorax. HEART: Unremarkable. No cardiomegaly. No significant pericardial effusion. LYMPH NODES: No lymphadenopathy. BONES, CHEST WALL: Minor multilevel degenerative spondylosis of the thoracic spine. OTHER FINDINGS: Unremarkable. IMPRESSION: No evidence of acute central pulmonary embolus. The findings consistent with pulmonary edema/ CHF with more confluent opacities -infiltrates in the lower lung aranda particularly lung bases
--- NOTE | 2018-03-18 10:58 | CP.CCUPN ---
CCU Subjective - Physician Review Subjective (Free Text): 03/18/18 12:57 ICU Progress note Patient seen and examined at bedside. Patient initially states her chest pain is intermittent in nature. Patient later also developed nausea and vomiting. Patient is scheduled for cardiac catheterization with Dr. Henrique barbour. Home meds: Lantus 30 units HS, Humalog 10 units SC TID before meals, Depakote 500mg TID, Mirtazapine 45mg HS, Xanax 0.5mg 1 tab BID, Lexapro 20mg 1 tab daily , Simbrinza eye drops, Risperdal 4mg 1 tab HS, Enalapril 2.5mg PO daily, Simvastatin 5mg HS, Vit D 66224 units weekly, Latanoprost eye drops, Metformin 500mg BID, Januvia 25mg PO daily. 03/18/18 13:05 03/18/18 14:50 CCU Objective - Vital Signs / Intake & Output Vital Signs (Last 4 hours): Vital Signs Temp Pulse Resp BP Pulse Ox 03/18/18 10:00 111 H 17 99 03/18/18 09:30 100 H 19 99 03/18/18 09:04 106 H 25 H 114/60 97 03/18/18 09:00 109 H 24 96 03/18/18 08:30 95 H 15 99 03/18/18 08:04 101 H 17 105/62 99 03/18/18 08:00 98.8 F 102 H 18 99 03/18/18 07:30 97 H 17 98 03/18/18 07:04 102 H 17 111/65 99 03/18/18 07:00 105 H 17 99 Intake and Output (Last 8hrs): Intake & Output 03/17/18 03/18/18 03/18/18 22:59 06:59 14:59 Intake Total 300 220 Output Total 300 Balance 0 220 Weight 142 lb 139 lb 15.896 oz Intake: Intake, IV Amount 300 100 Left Antecubital 100 Right Hand 300 0 Oral 120 Output: Urine 300 Urine, Voided 300 Other: # Voids Urine, Voided 0 0 # Bowel Movements 0 - Physical Exam Head: Positive for: Atraumatic, Normocephalic Pupils: Positive for: PERRL Mouth: Positive for: Moist Mucous Membranes Respiratory/Chest: Positive for: Clear to Auscultation, Good Air Exchange. Negative for: Respiratory Distress Cardiovascular: Positive for: Regular Rate and Rhythm, Normal S1, S2. Negative for: Murmurs Abdomen: Positive for: Normal Bowel Sounds. Negative for: Tenderness, Distention, Peritoneal Signs Upper Extremity: Positive for: NORMAL PULSES, Capillary Refill < 2s. Negative for: Edema Lower Extremity: Positive for: NORMAL PULSES, Capillary Refill < 2 s. Negative for: Edema, CALF TENDERNESS Neurological: Positive for: GCS=15 Skin: Positive for: Warm, Dry, Normal Color Psychiatric: Positive for: Alert, Oriented x 3 - Medications Active Medications: Active Medications Generic Name Dose Route Start Last Admin Trade Name Freq PRN Reason Stop Dose Admin Carvedilol 6.25 mg 03/18/18 10:00 03/18/18 10:14 Coreg PO 6.25 mg BID CHUY Administration Enoxaparin Sodium 60 mg 03/18/18 04:00 03/18/18 03:26 Lovenox SC 60 mg Q12H CHUY Administration Ergocalciferol 1 cap 03/18/18 10:00 03/18/18 10:14 Drisdol 50,000 Intl Units Cap PO 1 cap QWK CHUY Administration Escitalopram Oxalate 5 mg 03/18/18 10:00 03/18/18 10:14 Lexapro PO 5 mg DAILY CHUY Administration Famotidine 40 mg 03/18/18 10:00 03/18/18 10:14 Pepcid PO 40 mg DAILY CHUY Administration Ceftriaxone Sodium 1 gm/ 100 mls @ 100 mls/hr 03/18/18 10:00 03/18/18 10:05 Sodium Chloride IVPB 100 mls/hr DAILY CHUY Administration Protocol Insulin Aspart 0 unit 03/17/18 23:30 03/18/18 06:25 Novolog SC Not Given Q6H CHUY Protocol Lisinopril 2.5 mg 03/18/18 10:00 Zestril PO DAILY CHUY Mirtazapine 45 mg 03/18/18 10:00 03/18/18 10:15 Remeron PO 45 mg DAILY CHUY Administration Rosuvastatin Calcium 20 mg 03/18/18 22:00 Crestor PO HS CHUY Saccharomyces Boulardii 250 mg 03/18/18 10:00 03/18/18 10:14 Florastor PO 250 mg BID CHUY Administration Ticagrelor 90 mg 03/18/18 10:00 Brilinta PO BID CHUY - Patient Studies Lab Studies: Lab Studies 03/18/18 03/18/18 03/18/18 Range/Units 09:15 06:25 03:10 WBC (4.8-10.8) K/uL RBC (3.80-5.20) Mil/uL Hgb (11.0-16.0) g/dL Hct (34.0-47.0) % MCV (81.0-99.0) fL MCH (27.0-31.0) pg MCHC (33.0-37.0) g/dL RDW (11.5-14.5) % Plt Count (130-400) K/uL MPV (7.2-11.7) fL Neut % (Auto) (50.0-75.0) % Lymph % (Auto) (20.0-40.0) % [place] % (Auto) (0.0-10.0) % Eos % (Auto) (0.0-4.0) % Baso % (Auto) (0.0-2.0) % Neut # (Auto) (1.8-7.0) K/uL Lymph # (Auto) (1.0-4.3) K/uL [place] # (Auto) (0.0-0.8) K/uL Eos # (Auto) (0.0-0.7) K/uL Baso # (Auto) (0.0-0.2) K/uL PT 13.8 H (9.7-12.2) SECONDS INR 1.3 APTT 41 H D (21-34) SECONDS Sodium (132-148) mmol/L Potassium (3.6-5.2) mmol/L Chloride (98-107) mmol/L Carbon Dioxide (22-30) mmol/L Anion Gap (10-20) BUN (7-17) mg/dL Creatinine (0.7-1.2) mg/dL Est GFR ( Amer) Est GFR (Non-Af Amer) POC Glucose (mg/dL) 304 H (65-110) mg/dL Random Glucose (65-105) mg/dL Hemoglobin A1c (4.2-6.5) % Calcium (8.6-10.4) mg/dl Magnesium (1.6-2.3) mg/dL Total Bilirubin (0.2-1.3) mg/dL AST (14-36) U/L ALT (9-52) U/L Alkaline Phosphatase (38-126) U/L Total Creatine Kinase 241 H (30-135) U/L CK-MB (Mass) 9.42 H (0.0-3.38) ng/mL Troponin I 3.4300 H* (0.00-0.120) ng/mL NT-Pro-B Natriuret Pep (0-900) pg/mL Total Protein (6.3-8.3) g/dL Albumin (3.5-5.0) g/dL Globulin (2.2-3.9) gm/dL Albumin/Globulin Ratio (1.0-2.1) Triglycerides (0-149) mg/dL Cholesterol (0-199) mg/dL LDL Cholesterol Direct (0-129) mg/dL HDL Cholesterol (30-70) mg/dL Free T4 (0.78-2.19) ng/dL TSH 3rd Generation (0.46-4.68) mIU/L B-Hydroxybutyrate (0.02-0.27) mM Blood Type Antibody Screen 03/18/18 03/18/18 03/18/18 Range/Units 03:10 03:10 03:10 WBC 17.3 H (4.8-10.8) K/uL RBC 4.01 (3.80-5.20) Mil/uL Hgb 11.1 (11.0-16.0) g/dL Hct 33.2 L (34.0-47.0) % MCV 82.6 D (81.0-99.0) fL MCH 27.6 (27.0-31.0) pg MCHC 33.4 (33.0-37.0) g/dL RDW 13.1 (11.5-14.5) % Plt Count 444 H (130-400) K/uL MPV 8.2 (7.2-11.7) fL Neut % (Auto) 72.9 (50.0-75.0) % Lymph % (Auto) 21.8 (20.0-40.0) % [place] % (Auto) 4.6 (0.0-10.0) % Eos % (Auto) 0.2 (0.0-4.0) % Baso % (Auto) 0.5 (0.0-2.0) % Neut # (Auto) 12.6 H (1.8-7.0) K/uL Lymph # (Auto) 3.8 (1.0-4.3) K/uL [place] # (Auto) 0.8 (0.0-0.8) K/uL Eos # (Auto) 0.0 (0.0-0.7) K/uL Baso # (Auto) 0.1 (0.0-0.2) K/uL PT (9.7-12.2) SECONDS INR APTT (21-34) SECONDS Sodium 138 (132-148) mmol/L Potassium 4.4 (3.6-5.2) mmol/L Chloride 104 (98-107) mmol/L Carbon Dioxide 21 L (22-30) mmol/L Anion Gap 17 (10-20) BUN 15 (7-17) mg/dL Creatinine 0.7 (0.7-1.2) mg/dL Est GFR ( Amer) > 60 Est GFR (Non-Af Amer) > 60 POC Glucose (mg/dL) (65-110) mg/dL Random Glucose 278 H (65-105) mg/dL Hemoglobin A1c (4.2-6.5) % Calcium 9.1 (8.6-10.4) mg/dl Magnesium 1.9 (1.6-2.3) mg/dL Total Bilirubin 0.4 (0.2-1.3) mg/dL AST 30 (14-36) U/L ALT 29 (9-52) U/L Alkaline Phosphatase 164 H (38-126) U/L Total Creatine Kinase 224 H (30-135) U/L CK-MB (Mass) 10.9 H (0.0-3.38) ng/mL Troponin I 3.5700 H* (0.00-0.120) ng/mL NT-Pro-B Natriuret Pep (0-900) pg/mL Total Protein 7.1 (6.3-8.3) g/dL Albumin 4.2 (3.5-5.0) g/dL Globulin 3.0 (2.2-3.9) gm/dL Albumin/Globulin Ratio 1.4 (1.0-2.1) Triglycerides 122 (0-149) mg/dL Cholesterol 169 (0-199) mg/dL LDL Cholesterol Direct 85 (0-129) mg/dL HDL Cholesterol 53 (30-70) mg/dL Free T4 1.24 (0.78-2.19) ng/dL TSH 3rd Generation (0.46-4.68) mIU/L B-Hydroxybutyrate (0.02-0.27) mM Blood Type Antibody Screen 03/18/18 03/18/18 03/17/18 Range/Units 02:33 01:02 22:10 WBC (4.8-10.8) K/uL RBC (3.80-5.20) Mil/uL Hgb (11.0-16.0) g/dL Hct (34.0-47.0) % MCV (81.0-99.0) fL MCH (27.0-31.0) pg MCHC (33.0-37.0) g/dL RDW (11.5-14.5) % Plt Count (130-400) K/uL MPV (7.2-11.7) fL Neut % (Auto) (50.0-75.0) % Lymph % (Auto) (20.0-40.0) % [place] % (Auto) (0.0-10.0) % Eos % (Auto) (0.0-4.0) % Baso % (Auto) (0.0-2.0) % Neut # (Auto) (1.8-7.0) K/uL Lymph # (Auto) (1.0-4.3) K/uL [place] # (Auto) (0.0-0.8) K/uL Eos # (Auto) (0.0-0.7) K/uL Baso # (Auto) (0.0-0.2) K/uL PT (9.7-12.2) SECONDS INR APTT (21-34) SECONDS Sodium (132-148) mmol/L Potassium (3.6-5.2) mmol/L Chloride (98-107) mmol/L Carbon Dioxide (22-30) mmol/L Anion Gap (10-20) BUN (7-17) mg/dL Creatinine (0.7-1.2) mg/dL Est GFR ( Amer) Est GFR (Non-Af Amer) POC Glucose (mg/dL) 266 H (65-110) mg/dL Random Glucose (65-105) mg/dL Hemoglobin A1c (4.2-6.5) % Calcium (8.6-10.4) mg/dl Magnesium (1.6-2.3) mg/dL Total Bilirubin (0.2-1.3) mg/dL AST (14-36) U/L ALT (9-52) U/L Alkaline Phosphatase (38-126) U/L Total Creatine Kinase (30-135) U/L CK-MB (Mass) (0.0-3.38) ng/mL Troponin I (0.00-0.120) ng/mL NT-Pro-B Natriuret Pep 53.9 (0-900) pg/mL Total Protein (6.3-8.3) g/dL Albumin (3.5-5.0) g/dL Globulin (2.2-3.9) gm/dL Albumin/Globulin Ratio (1.0-2.1) Triglycerides (0-149) mg/dL Cholesterol (0-199) mg/dL LDL Cholesterol Direct (0-129) mg/dL HDL Cholesterol (30-70) mg/dL Free T4 (0.78-2.19) ng/dL TSH 3rd Generation 3.34 (0.46-4.68) mIU/L B-Hydroxybutyrate 0.22 (0.02-0.27) mM Blood Type Antibody Screen 03/17/18 03/17/18 03/17/18 Range/Units 21:03 21:00 21:00 WBC (4.8-10.8) K/uL RBC (3.80-5.20) Mil/uL Hgb (11.0-16.0) g/dL Hct (34.0-47.0) % MCV (81.0-99.0) fL MCH (27.0-31.0) pg MCHC (33.0-37.0) g/dL RDW (11.5-14.5) % Plt Count (130-400) K/uL MPV (7.2-11.7) fL Neut % (Auto) (50.0-75.0) % Lymph % (Auto) (20.0-40.0) % [place] % (Auto) (0.0-10.0) % Eos % (Auto) (0.0-4.0) % Baso % (Auto) (0.0-2.0) % Neut # (Auto) (1.8-7.0) K/uL Lymph # (Auto) (1.0-4.3) K/uL [place] # (Auto) (0.0-0.8) K/uL Eos # (Auto) (0.0-0.7) K/uL Baso # (Auto) (0.0-0.2) K/uL PT (9.7-12.2) SECONDS INR APTT (21-34) SECONDS Sodium 135 (132-148) mmol/L Potassium 3.6 (3.6-5.2) mmol/L Chloride 98 (98-107) mmol/L Carbon Dioxide 19 L (22-30) mmol/L Anion Gap 21 H (10-20) BUN 17 (7-17) mg/dL Creatinine 0.7 (0.7-1.2) mg/dL Est GFR ( Amer) > 60 Est GFR (Non-Af Amer) > 60 POC Glucose (mg/dL) (65-110) mg/dL Random Glucose 387 H (65-105) mg/dL Hemoglobin A1c 9.7 H (4.2-6.5) % Calcium 9.3 (8.6-10.4) mg/dl Magnesium (1.6-2.3) mg/dL Total Bilirubin 0.2 (0.2-1.3) mg/dL AST 18 (14-36) U/L ALT 22 (9-52) U/L Alkaline Phosphatase 200 H (38-126) U/L Total Creatine Kinase 104 (30-135) U/L CK-MB (Mass) 1.94 (0.0-3.38) ng/mL Troponin I 0.3960 H* (0.00-0.120) ng/mL NT-Pro-B Natriuret Pep 35.5 (0-900) pg/mL Total Protein 7.2 (6.3-8.3) g/dL Albumin 4.4 (3.5-5.0) g/dL Globulin 2.9 (2.2-3.9) gm/dL Albumin/Globulin Ratio 1.5 (1.0-2.1) Triglycerides (0-149) mg/dL Cholesterol (0-199) mg/dL LDL Cholesterol Direct (0-129) mg/dL HDL Cholesterol (30-70) mg/dL Free T4 (0.78-2.19) ng/dL TSH 3rd Generation (0.46-4.68) mIU/L B-Hydroxybutyrate (0.02-0.27) mM Blood Type O POSITIVE Antibody Screen Negative 03/17/18 03/17/18 03/17/18 Range/Units 21:00 21:00 20:51 WBC 12.5 H (4.8-10.8) K/uL RBC 4.19 (3.80-5.20) Mil/uL Hgb 11.8 (11.0-16.0) g/dL Hct 35.8 (34.0-47.0) % MCV 85.3 (81.0-99.0) fL MCH 28.3 (27.0-31.0) pg MCHC 33.1 (33.0-37.0) g/dL RDW 13.6 (11.5-14.5) % Plt Count 451 H D (130-400) K/uL MPV 7.9 (7.2-11.7) fL Neut % (Auto) 69.4 (50.0-75.0) % Lymph % (Auto) 23.2 (20.0-40.0) % [place] % (Auto) 5.5 (0.0-10.0) % Eos % (Auto) 1.2 (0.0-4.0) % Baso % (Auto) 0.7 (0.0-2.0) % Neut # (Auto) 8.7 H (1.8-7.0) K/uL Lymph # (Auto) 2.9 (1.0-4.3) K/uL [place] # (Auto) 0.7 (0.0-0.8) K/uL Eos # (Auto) 0.1 (0.0-0.7) K/uL Baso # (Auto) 0.1 (0.0-0.2) K/uL PT 13.0 H (9.7-12.2) SECONDS INR 1.2 APTT 35 H (21-34) SECONDS Sodium (132-148) mmol/L Potassium (3.6-5.2) mmol/L Chloride (98-107) mmol/L Carbon Dioxide (22-30) mmol/L Anion Gap (10-20) BUN (7-17) mg/dL Creatinine (0.7-1.2) mg/dL Est GFR ( Amer) Est GFR (Non-Af Amer) POC Glucose (mg/dL) 347 H (65-110) mg/dL Random Glucose (65-105) mg/dL Hemoglobin A1c (4.2-6.5) % Calcium (8.6-10.4) mg/dl Magnesium (1.6-2.3) mg/dL Total Bilirubin (0.2-1.3) mg/dL AST (14-36) U/L ALT (9-52) U/L Alkaline Phosphatase (38-126) U/L Total Creatine Kinase (30-135) U/L CK-MB (Mass) (0.0-3.38) ng/mL Troponin I (0.00-0.120) ng/mL NT-Pro-B Natriuret Pep (0-900) pg/mL Total Protein (6.3-8.3) g/dL Albumin (3.5-5.0) g/dL Globulin (2.2-3.9) gm/dL Albumin/Globulin Ratio (1.0-2.1) Triglycerides (0-149) mg/dL Cholesterol (0-199) mg/dL LDL Cholesterol Direct (0-129) mg/dL HDL Cholesterol (30-70) mg/dL Free T4 (0.78-2.19) ng/dL TSH 3rd Generation (0.46-4.68) mIU/L B-Hydroxybutyrate (0.02-0.27) mM Blood Type Antibody Screen Laboratory Results - last 24 hr 03/17/18 03/17/18 03/17/18 20:51 21:00 21:00 WBC 12.5 H RBC 4.19 Hgb 11.8 Hct 35.8 MCV 85.3 MCH 28.3 MCHC 33.1 RDW 13.6 Plt Count 451 H D MPV 7.9 Neut % (Auto) 69.4 Lymph % (Auto) 23.2 [place] % (Auto) 5.5 Eos % (Auto) 1.2 Baso % (Auto) 0.7 Neut # (Auto) 8.7 H Lymph # (Auto) 2.9 [place] # (Auto) 0.7 Eos # (Auto) 0.1 Baso # (Auto) 0.1 PT 13.0 H INR 1.2 APTT 35 H Sodium Potassium Chloride Carbon Dioxide Anion Gap BUN Creatinine Est GFR ( Amer) Est GFR (Non-Af Amer) POC Glucose (mg/dL) 347 H Random Glucose Hemoglobin A1c Calcium Magnesium Total Bilirubin AST ALT Alkaline Phosphatase Total Creatine Kinase CK-MB (Mass) Troponin I NT-Pro-B Natriuret Pep Total Protein Albumin Globulin Albumin/Globulin Ratio Triglycerides Cholesterol LDL Cholesterol Direct HDL Cholesterol Free T4 TSH 3rd Generation B-Hydroxybutyrate Blood Type Antibody Screen 03/17/18 03/17/18 03/17/18 21:00 21:00 21:03 WBC RBC Hgb Hct MCV MCH MCHC RDW Plt Count MPV Neut % (Auto) Lymph % (Auto) [place] % (Auto) Eos % (Auto) Baso % (Auto) Neut # (Auto) Lymph # (Auto) [place] # (Auto) Eos # (Auto) Baso # (Auto) PT INR APTT Sodium 135 Potassium 3.6 Chloride 98 Carbon Dioxide 19 L Anion Gap 21 H BUN 17 Creatinine 0.7 Est GFR ( Amer) > 60 Est GFR (Non-Af Amer) > 60 POC Glucose (mg/dL) Random Glucose 387 H Hemoglobin A1c 9.7 H Calcium 9.3 Magnesium Total Bilirubin 0.2 AST 18 ALT 22 Alkaline Phosphatase 200 H Total Creatine Kinase 104 CK-MB (Mass) 1.94 Troponin I 0.3960 H* NT-Pro-B Natriuret Pep 35.5 Total Protein 7.2 Albumin 4.4 Globulin 2.9 Albumin/Globulin Ratio 1.5 Triglycerides Cholesterol LDL Cholesterol Direct HDL Cholesterol Free T4 TSH 3rd Generation B-Hydroxybutyrate Blood Type O POSITIVE Antibody Screen Negative 03/17/18 03/18/18 03/18/18 22:10 01:02 02:33 WBC RBC Hgb Hct MCV MCH MCHC RDW Plt Count MPV Neut % (Auto) Lymph % (Auto) [place] % (Auto) Eos % (Auto) Baso % (Auto) Neut # (Auto) Lymph # (Auto) [place] # (Auto) Eos # (Auto) Baso # (Auto) PT INR APTT Sodium Potassium Chloride Carbon Dioxide Anion Gap BUN Creatinine Est GFR ( Amer) Est GFR (Non-Af Amer) POC Glucose (mg/dL) 266 H Random Glucose Hemoglobin A1c Calcium Magnesium Total Bilirubin AST ALT Alkaline Phosphatase Total Creatine Kinase CK-MB (Mass) Troponin I NT-Pro-B Natriuret Pep 53.9 Total Protein Albumin Globulin Albumin/Globulin Ratio Triglycerides Cholesterol LDL Cholesterol Direct HDL Cholesterol Free T4 TSH 3rd Generation 3.34 B-Hydroxybutyrate 0.22 Blood Type Antibody Screen 03/18/18 03/18/18 03/18/18 03:10 03:10 03:10 WBC 17.3 H RBC 4.01 Hgb 11.1 Hct 33.2 L MCV 82.6 D MCH 27.6 MCHC 33.4 RDW 13.1 Plt Count 444 H MPV 8.2 Neut % (Auto) 72.9 Lymph % (Auto) 21.8 [place] % (Auto) 4.6 Eos % (Auto) 0.2 Baso % (Auto) 0.5 Neut # (Auto) 12.6 H Lymph # (Auto) 3.8 [place] # (Auto) 0.8 Eos # (Auto) 0.0 Baso # (Auto) 0.1 PT INR APTT Sodium 138 Potassium 4.4 Chloride 104 Carbon Dioxide 21 L Anion Gap 17 BUN 15 Creatinine 0.7 Est GFR ( Amer) > 60 Est GFR (Non-Af Amer) > 60 POC Glucose (mg/dL) Random Glucose 278 H Hemoglobin A1c Calcium 9.1 Magnesium 1.9 Total Bilirubin 0.4 AST 30 ALT 29 Alkaline Phosphatase 164 H Total Creatine Kinase 224 H CK-MB (Mass) 10.9 H Troponin I 3.5700 H* NT-Pro-B Natriuret Pep Total Protein 7.1 Albumin 4.2 Globulin 3.0 Albumin/Globulin Ratio 1.4 Triglycerides 122 Cholesterol 169 LDL Cholesterol Direct 85 HDL Cholesterol 53 Free T4 1.24 TSH 3rd Generation B-Hydroxybutyrate Blood Type Antibody Screen 03/18/18 03/18/18 03/18/18 03:10 06:25 09:15 WBC RBC Hgb Hct MCV MCH MCHC RDW Plt Count MPV Neut % (Auto) Lymph % (Auto) [place] % (Auto) Eos % (Auto) Baso % (Auto) Neut # (Auto) Lymph # (Auto) [place] # (Auto) Eos # (Auto) Baso # (Auto) PT 13.8 H INR 1.3 APTT 41 H D Sodium Potassium Chloride Carbon Dioxide Anion Gap BUN Creatinine Est GFR ( Amer) Est GFR (Non-Af Amer) POC Glucose (mg/dL) 304 H Random Glucose Hemoglobin A1c Calcium Magnesium Total Bilirubin AST ALT Alkaline Phosphatase Total Creatine Kinase 241 H CK-MB (Mass) 9.42 H Troponin I 3.4300 H* NT-Pro-B Natriuret Pep Total Protein Albumin Globulin Albumin/Globulin Ratio Triglycerides Cholesterol LDL Cholesterol Direct HDL Cholesterol Free T4 TSH 3rd Generation B-Hydroxybutyrate Blood Type Antibody Screen EKG/Cardiology Studies: Cardiology / EKG Studies 03/17/18 20:55 EKG [ELECTROCARDIOGRAM] Stat Comment: Mode Of Transportation: BED Reason For Exam: cp bed 10 03/18/18 02:15 EKG [ELECTROCARDIOGRAM] Stat Comment: Mode Of Transportation: Reason For Exam: repeat Chest pain 03/18/18 03:00 ELECTROCARDIOGRAM Q6H Comment: Mode Of Transportation: Reason For Exam: Chest Pain 03/18/18 09:00 ELECTROCARDIOGRAM Q6H Comment: Mode Of Transportation: Reason For Exam: Chest Pain Fingerstick Blood Sugar Results: 304 Critical Care Progress Note - Nutrition Nutrition: Nutrition Category Date Time Status NPO Diet [DIET] Diets 03/17/18 Breakfast Active Assessment/Plan - Assessment and Plan (Free Text) Assessment: 57 year old female with history of DM, HTN, HLD, bipolar disorder, fibromyalgia who presented for complaints of 3 day history of chest pain with radiation to left arm and nausea and vomiting. Troponins were found to be elevated indicative of NSTEMI. Today, patient complained of intermittent chest pain with some nausea, and vomiting. EKG revealed T wave changes in V2, V3, V4. Plan: Neuro: alert and oriented UDS: negative Cardiovascular: NSTEMI Hx of DM, HTN, HLD Troponins 0.3960 -->3.5700 -->3.43 --> 2.76 Patient complained of nausea and vomiting. Repeat ANUSHKA panel ordered after patient complained of chest pain with nausea and vomiting Repeat EKG today revealed T wave inversions in V2-V4, new from prior EKGs on admission Dr. Duenas on case ,help appreciated. Has been NPO, scheduled to have cardiac catheterization today F/u ECHO Coreg 6.25mg BID Rocephin 1g IV Doxycycline 100mg BID Lovenox 60mg SC Q12 Crestor 20mg PO Brilinta 90mg BID Lisinopril 2.5mg PO daily Pulmonary CT chest: no evidence of PE CXR: no acute findings GI: Pepcid 40mg PO Patient noted to be vomiting, Zofran 4mg IV once Renal NS IV fluids @ 100cc/hr ID Afebrile White count 17.3 Patient on Rocephin 1g IV Florastor 250mg BID Endo: Hx of DM medium dose ISS Heme: H/H stable at 11.1/33.2 Psych Hx of bipolar disorder Lexapro 5mg PO daily Remeron 45mg PO daily PPX: SCDs Case discussed with Dr. Gil
[2018-03-18 12:10] LABS: SQUAMOUS EPITHIAL 1 /hpf (0-5); URINE BILIRUBIN NEGATIVE (NEGATIVE); URINE BLOOD NEGATIVE (NEGATIVE); URINE CLARITY Clear (Clear); URINE COLOR Straw (YELLOW); URINE GLUCOSE (UA) 3+ mg/dL (Normal); URINE LEUKOCYTE ESTERASE NEG Leu/uL (Negative); URINE PROTEIN NEGATIVE (NEGATIVE); URINE UROBILINOGEN NORMAL mg/dL (0.2-1.0)
[2018-03-18] MEDS: Sodium Chloride 0.9% 1,000 ML IV SCH ×2 (12:16→21:54)
[2018-03-18 12:22] LABS: BARBITURATES, UR NEGATIVE (NEGATIVE); BENZODIAZEPINES, UR NEGATIVE (NEGATIVE); OPIATES, UR NEGATIVE (NEGATIVE); PHENCYCLIDINE, UR NEGATIVE (NEGATIVE)
[2018-03-18 13:21] LABS: CK-MB 8.23 ng/mL (0.0-3.38); TROPONIN I 2.76 ng/mL (0.00-0.120)
[2018-03-18] MEDS ORDERED: Perflutren Lipid Microsphere 1.5 ML SUS IV ONE (14:32)
[2018-03-18 16:00] LABS: LEGIONELLA AG URINE NEGATIVE (NEGATIVE)
[2018-03-18] MEDS ORDERED: Lidocaine 2% MPF (5 ml) Inj ONE ×2 (17:51→19:49)
[2018-03-18] MEDS ORDERED: Midazolam 2 MG/2 ML VIAL ONE ×4 (18:03→20:48)
[2018-03-18] MEDS ORDERED: Verapamil 2 ML ONE ×2 (18:05→20:47)
[2018-03-18] MEDS ORDERED: Iodixanol 320 MG/ML 200 ML BOTTLE IV ONE (19:46)
[2018-03-18] MEDS ORDERED: Eptifibatide 20 mg/10mL Inj IVP ONE (20:51)
[2018-03-18 21:00] LABS: MYCOPLASMA PNEUMONIAE IGM NEGATIVE (NEGATIVE)
[2018-03-18] MEDS ORDERED: Home Med 1 UNIT (Simvastatin [Simvastatin] 5 MG) PO SCH (22:00)
[2018-03-19 06:31] LABS: BASO % 0.3 % (0.0-2.0); EOS # 0.1 K/uL (0.0-0.7); EOS % 0.9 % (0.0-4.0); HEMOGLOBIN 10.2 g/dL (11.0-16.0); LYMPH # 3.7 K/uL (1.0-4.3); LYMPH % 31.9 % (20.0-40.0); MEAN CELL VOLUME 84.2 fL (81.0-99.0); MEAN CORPUSCULAR HEMOGLOBIN 27.6 pg (27.0-31.0); MEAN CORPUSCULAR HGB CONC 32.8 g/dL (33.0-37.0); MEAN PLATELET VOLUME 8.7 fL (7.2-11.7); MONO # 0.8 K/uL (0.0-0.8); NEUT % 59.9 % (50.0-75.0); NRBC % 0.1 % (0.0-2.0); RBC 3.68 Mil/uL (3.80-5.20); RED CELL DISTRIBUTION WIDTH 13.5 % (11.5-14.5); WHITE BLOOD COUNT 11.7 K/uL (4.8-10.8)
[2018-03-19 06:34] LABS: INR 1.2; PROTHROMBIN TIME 13.6 SECONDS (9.7-12.2)
[2018-03-19 06:46] LABS: ALB/GLOB RATIO 1.2 (1.0-2.1); ALBUMIN 3.1 g/dL (3.5-5.0); ALT/SGPT 28 U/L (9-52); AST/SGOT 31 U/L (14-36); BLOOD UREA NITROGEN 18 mg/dL (7-17); CALCIUM 7.7 mg/dl (8.6-10.4); GFR NON-AFRICAN AMERICAN > 60
--- NOTE | 2018-03-19 07:38 | CP.PCM.PN ---
Subjective - Date & Time of Evaluation Date of Evaluation: 03/19/18 Time of Evaluation: 07:30 - Subjective Subjective: Medical Attending Note: Patient seen and examined at bedside. No family at bedside. patient sitting upright in chair. Patient reports last bowel movement on Sunday. patient reports chest pain has improved significantly; reports only have chest pain while coughing or when she leans forward or back. Patient denies nausea, denies vomitting, denies abdominal pain, denies leg pains. patient has T-Band over the left wrist. Objective - Vital Signs/Intake and Output Vital Signs (last 24 hours): Temp Pulse Resp BP Pulse Ox 98 F 80 16 93/43 L 94 L 03/19/18 04:00 03/19/18 07:00 03/19/18 07:00 03/19/18 06:59 03/19/18 07:00 Intake and Output: 03/19/18 03/19/18 06:59 18:59 Intake Total 1250 100 Output Total 700 Balance 550 100 - Medications Medications: Current Medications Carvedilol (Coreg) 6.25 mg PO BID [facility] Last Admin: 03/18/18 19:35 Dose: Not Given Enoxaparin Sodium (Lovenox) 40 mg SC DAILY [facility] Ergocalciferol (Drisdol 50,000 Intl Units Cap) 1 cap PO QWK [facility] Last Admin: 03/18/18 10:14 Dose: 1 cap Escitalopram Oxalate (Lexapro) 5 mg PO DAILY [facility] Last Admin: 03/18/18 10:14 Dose: 5 mg Famotidine (Pepcid) 40 mg PO DAILY [facility] Last Admin: 03/18/18 10:14 Dose: 40 mg Ceftriaxone Sodium 1 gm/ (Sodium Chloride) 100 mls @ 100 mls/hr IVPB DAILY [facility] PRN Reason: Protocol Last Admin: 03/18/18 10:05 Dose: 100 mls/hr Sodium Chloride (Sodium Chloride 0.9%) 1,000 mls @ 100 mls/hr IV .Q10H [facility] Last Admin: 03/18/18 21:54 Dose: 100 mls/hr Insulin Aspart (Novolog) 0 unit SC ACHS [facility] PRN Reason: Protocol Last Admin: 03/18/18 21:35 Dose: Not Given Lisinopril (Zestril) 2.5 mg PO DAILY [facility] Last Admin: 03/18/18 11:18 Dose: 2.5 mg Mirtazapine (Remeron) 45 mg PO DAILY [facility] Last Admin: 03/18/18 10:15 Dose: 45 mg Rosuvastatin Calcium (Crestor) 20 mg PO HS [facility] Last Admin: 03/18/18 21:34 Dose: 20 mg Saccharomyces Boulardii (Florastor) 250 mg PO BID [facility] Last Admin: 03/18/18 19:35 Dose: Not Given - Labs Labs: 03/19/18 06:19 03/19/18 06:17 PT 13.6 SECONDS (9.7-12.2) H 03/19/18 06:19 INR 1.2 03/19/18 06:19 APTT 28 SECONDS (21-34) D 03/19/18 06:19 - Constitutional Appears: Non-toxic, No Acute Distress - Head Exam Head Exam: NORMAL INSPECTION - Eye Exam Eye Exam: EOMI - ENT Exam ENT Exam: Mucous Membranes Moist - Respiratory Exam Respiratory Exam: Clear to Ausculation Bilateral, NORMAL BREATHING PATTERN. absent: Rales, Rhonchi, Wheezes - Cardiovascular Exam Cardiovascular Exam: REGULAR RHYTHM, +S1, +S2 - GI/Abdominal Exam GI & Abdominal Exam: Soft, Normal Bowel Sounds. absent: Distended, Firm, Guarding, Rigid, Tenderness, Hyperactive Bowel Sounds, Rebound - Extremities Exam Extremities Exam: absent: Pedal Edema, Tenderness Additional comments: left upper extremity: t band over wrist; cap refill< 2 seconds - Back Exam Back Exam: absent: CVA tenderness (L), CVA tenderness (R) - Neurological Exam Neurological Exam: Alert, Awake, Oriented x3 Neuro motor strength exam: Left Upper Extremity: 5, Right Upper Extremity: 5, Left Lower Extremity: 5, Right Lower Extremity: 5 - Psychiatric Exam Psychiatric exam: Normal Affect, Normal Mood - Skin Skin Exam: Dry, Normal Color, Warm Assessment and Plan (1) NSTEMI (non-ST elevated myocardial infarction) Status: Acute (2) Chest pain due to CAD Status: Acute (3) Dyslipidemia Status: Chronic (4) HTN (hypertension) Status: Chronic (5) Diabetes mellitus Status: Chronic (6) Bipolar disorder Status: Chronic (7) Prophylactic measure Status: Acute Attending/Attestation - Attestation I have personally seen and examined this patient.: Yes I have fully participated in the care of the patient.: Yes I have reviewed all pertinent clinical information, including history, physical exam and plan: Yes Notes (Text): Assessment and Plan (1) NSTEMI (non-ST elevated myocardial infarction) Assessment & Plan: * Admitted to ICU * Abnormal EKG with elevated troponins on admission * Cardiology (Dr. Duenas) on case-->help appreciated * Cardiac cath: normal coronaries * Discussed with cardiology to stop therapuetic lovenox and brilinta yesterday * Pending echocardiogram * Patient is allergic to aspirin * Lower Coreg 3.125mg PO BID * Crestor 20mg POqHS * Lisinopril 2.5mg PO daily * ALEXIA: 3 13% risk at 14 dats of all cause mortality, new or recurrent VT or sevre recurrent ischemia requiring urgent revascularization * Chest xray (03/17/18): no acute findings; left basilar atelectasis * Repeat chest xray today * CT Angio (03/18/18): mild interlobular septal thickening with parchy ground glass opacities/atectasis seen in lower lobes. No evidence of acute central embolus. Findings consistent with pulmonary edema/CHF * Lipid panel: 122, chol: 169, LDL: 85, HDL: 53 * a1c: 9.7 * TSH: 3.34 Free T4: 1.24 Status: Acute (2) Chest pain Assessment & Plan: * Admitted to ICU * Abnormal EKG with elevated troponins on admission * Cardiology (Dr. Duenas) on case-->help appreciated * Cardiac cath: normal coronaries * Discussed with cardiology to stop therapuetic lovenox and brilinta yesterday * Pending echocardiogram * Patient is allergic to aspirin * Lower Coreg 3.125mg PO BID * Crestor 20mg POqHS * Lisinopril 2.5mg PO daily * ALEXIA: 3 13% risk at 14 days of all cause mortality, new or recurrent VT or sevre recurrent ischemia requiring urgent revascularization * Chest xray (03/17/18): no acute findings; left basilar atelectasis * Repeat chest xray today * CT Angio (03/18/18): mild interlobular septal thickening with parchy ground glass opacities/atectasis seen in lower lobes. No evidence of acute central embolus. Findings consistent with pulmonary edema/CHF * Chest xray (03/17/18): no acute findings; left basilar atelectasis * Pending official report of CT angio * Lipid panel: 122, chol: 169, LDL: 85, HDL: 53 * a1c: 9.7 * TSH: 3.34 Free T4: 1.24 Status: Acute (3) Dyslipidemia Assessment & Plan: * Lipid panel: 122, chol: 169, LDL: 85, HDL: 53 * Crestor 20mg POqHS Status: Chronic (4) HTN (hypertension) Assessment & Plan: * Lower coreg 3.125mg PO BID * start Lisinopril 2.5mg Po daily * monitor vital signs * patient is allergic to aspirin Status: Chronic (5) Diabetes mellitus Assessment & Plan: * Lipid panel: 122, chol: 169, LDL: 85, HDL: 53 * a1c: 9.7 * TSH: 3.34 Free T4: 1.24 * start lisinopril 2.5mg Po daily * patient is allergic to aspirin Status: Chronic (6) Bipolar disorder Assessment & Plan: * patient does not remember all her medications * Her pharmacy is [facility]: [phone] which opens at 10am--->will need to call since patient does not remember her medications. Status: Chronic (7) Prophylactic measure Assessment & Plan: * Lovenox 40mg subsqdaily Status: Acute
[2018-03-19] MEDS: (Novolog) Insulin Aspart, Recombinant 100 u/ml 10 ml vial SC SCH ×4 (08:23→21:32)
[2018-03-19] MEDS: Sodium Chloride 0.9% 1,000 ML IV SCH ×4 (09:00→21:22)
[2018-03-19] MEDS ORDERED: Enoxaparin 80 mg Syringe SC SCH (09:30)
--- NOTE | 2018-03-19 09:52 | RAD ---
Date of service: 03/19/2018 HISTORY: cough COMPARISON: No prior. FINDINGS: LUNGS: Patchy left lower lobe atelectasis and or infiltrate changes with small left effusion. Slight blunting right CP angle could represent small effusion as well. PLEURA: As above. No pneumothorax apparent. CARDIOVASCULAR: Normal. OSSEOUS STRUCTURES: No significant abnormalities. VISUALIZED UPPER ABDOMEN: Normal. OTHER FINDINGS: None. IMPRESSION: Patchy left lower lobe atelectasis and or infiltrate changes with small left effusion. Slight blunting right CP angle could represent small effusion as well.
[2018-03-19] MEDS ORDERED: Enoxaparin 40 mg Syringe SC SCH (10:00)
[2018-03-19] MEDS: Saccharomyces Boulardi 250 mg Cap PO SCH ×2 (10:21→17:00)
--- NOTE | 2018-03-19 10:34 | CP.CCUPN ---
<French Ocampo - Last Filed: 03/19/18 11:38> CCU Subjective - Physician Review Subjective (Free Text): ICU Progress note Patient seen and examined at bedside. Patient states she feels comfortable after her cardiac cath today. She offers no complaints at this time. She denies headache, chest pain, shortness of breath, dizziness, abdominal pain, nausea, vomiting, diarrhea, leg pain. 03/19/18 11:11 CCU Objective - Vital Signs / Intake & Output Vital Signs (Last 4 hours): Vital Signs Pulse Resp BP Pulse Ox 03/19/18 09:00 89 17 97 03/19/18 08:59 84 17 97/37 L 98 03/19/18 07:59 81 18 96/46 L 95 03/19/18 07:00 80 16 94 L 03/19/18 06:59 93/43 L Intake and Output (Last 8hrs): Intake & Output 03/18/18 03/19/18 03/19/18 22:59 06:59 14:59 Intake Total 650 800 300 Output Total 650 250 Balance 0 550 300 Weight 147 lb 14.883 oz Intake: Intake, IV Amount 400 800 300 Left Antecubital 400 800 300 Oral 250 0 0 Output: Urine 650 250 Urine, Voided 650 250 Other: # Voids Urine, Voided 1 1 0 # Bowel Movements 0 0 0 - Physical Exam Head: Positive for: Atraumatic, Normocephalic Pupils: Positive for: PERRL Extroacular Muscles: Positive for: EOMI Mouth: Positive for: Moist Mucous Membranes Respiratory/Chest: Positive for: Clear to Auscultation, Good Air Exchange. Negative for: Respiratory Distress Cardiovascular: Positive for: Regular Rate and Rhythm, Normal S1, S2. Negative for: Murmurs Abdomen: Positive for: Normal Bowel Sounds. Negative for: Tenderness, Distention, Peritoneal Signs Upper Extremity: Positive for: NORMAL PULSES, Capillary Refill < 2s. Negative for: Edema Lower Extremity: Positive for: NORMAL PULSES, Capillary Refill < 2 s. Negative for: Edema, CALF TENDERNESS Neurological: Positive for: GCS=15 Skin: Positive for: Warm, Dry, Normal Color Psychiatric: Positive for: Alert, Oriented x 3 - Medications Active Medications: Active Medications Generic Name Dose Route Start Last Admin Trade Name Freq PRN Reason Stop Dose Admin Carvedilol 3.125 mg 09/11/18 07:48 03/19/18 10:21 Coreg PO 3.125 mg BID CHUY Administration Clopidogrel Bisulfate 75 mg 03/19/18 10:00 03/19/18 10:21 Plavix PO 75 mg DAILY CHUY Administration Enoxaparin Sodium 70 mg 03/19/18 09:30 03/19/18 10:21 Lovenox SC 70 mg Q12H CHUY Administration Ergocalciferol 1 cap 03/18/18 10:00 03/18/18 10:14 Drisdol 50,000 Intl Units Cap PO 1 cap QWK CHUY Administration Escitalopram Oxalate 5 mg 03/18/18 10:00 03/19/18 10:24 Lexapro PO 5 mg DAILY CHUY Administration Famotidine 40 mg 03/18/18 10:00 03/19/18 10:24 Pepcid PO 40 mg DAILY CHUY Administration Ceftriaxone Sodium 1 gm/ 100 mls @ 100 mls/hr 03/18/18 10:00 03/18/18 10:05 Sodium Chloride IVPB 100 mls/hr DAILY CHUY Administration Protocol Sodium Chloride 1,000 mls @ 100 mls/hr 03/18/18 12:15 03/19/18 10:20 Sodium Chloride 0.9% IV 100 mls/hr .Q10H CHUY Administration Insulin Aspart 0 unit 03/18/18 22:00 03/19/18 08:23 Novolog SC 3 units ACHS CHUY Administration Protocol Lisinopril 2.5 mg 03/18/18 10:00 03/18/18 11:18 Zestril PO 2.5 mg DAILY CHUY Administration Mirtazapine 45 mg 03/18/18 10:00 03/19/18 10:22 Remeron PO 45 mg DAILY CHUY Administration Rosuvastatin Calcium 20 mg 03/18/18 22:00 03/18/18 21:34 Crestor PO 20 mg HS CHUY Administration Saccharomyces Boulardii 250 mg 03/18/18 10:00 03/19/18 10:21 Florastor PO 250 mg BID CHUY Administration - Patient Studies Lab Studies: Microbiology Studies 03/18/18 03:10 Blood Culture - Preliminary Blood-Venous NO GROWTH AFTER 24 HOURS 03/18/18 03:10 Blood Culture - Preliminary Blood-Venous NO GROWTH AFTER 24 HOURS Lab Studies 03/19/18 03/19/1803/19/18 Range/Units 06:19 06:19 06:17 WBC 11.7 H (4.8-10.8) K/uL RBC 3.68 L (3.80-5.20) Mil/uL Hgb 10.2 L (11.0-16.0) g/dL Hct 31.0 L (34.0-47.0) % MCV 84.2 (81.0-99.0) fL MCH 27.6 (27.0-31.0) pg MCHC 32.8 L (33.0-37.0) g/dL RDW 13.5 (11.5-14.5) % Plt Count 367 (130-400) K/uL MPV 8.7 (7.2-11.7) fL Neut % (Auto) 59.9 (50.0-75.0) % Lymph % (Auto) 31.9 (20.0-40.0) % [place] % (Auto) 7.0 (0.0-10.0) % Eos % (Auto) 0.9 (0.0-4.0) % Baso % (Auto) 0.3 (0.0-2.0) % Neut # (Auto) 7.0 (1.8-7.0) K/uL Lymph # (Auto) 3.7 (1.0-4.3) K/uL [place] # (Auto) 0.8 (0.0-0.8) K/uL Eos # (Auto) 0.1 (0.0-0.7) K/uL Baso # (Auto) 0.0 (0.0-0.2) K/uL ESR 27 H (0-20) mm/hr PT 13.6 H (9.7-12.2) SECONDS INR 1.2 APTT 28 D (21-34) SECONDS Sodium 139 (132-148) mmol/L Potassium 3.9 (3.6-5.2) mmol/L Chloride 109 H (98-107) mmol/L Carbon Dioxide 22 (22-30) mmol/L Anion Gap 13 (10-20) BUN 18 H (7-17) mg/dL Creatinine 0.8 (0.7-1.2) mg/dL Est GFR ( Amer) > 60 Est GFR (Non-Af Amer) > 60 POC Glucose (mg/dL) (65-110) mg/dL Random Glucose 196 H (65-105) mg/dL Calcium 7.7 L (8.6-10.4) mg/dl Phosphorus 3.2 (2.5-4.5) mg/dL Magnesium 1.7 (1.6-2.3) mg/dL Total Bilirubin 0.4 (0.2-1.3) mg/dL AST 31 (14-36) U/L ALT 28 (9-52) U/L Alkaline Phosphatase 113 (38-126) U/L Total Creatine Kinase (30-135) U/L CK-MB (Mass) (0.0-3.38) ng/mL Troponin I (0.00-0.120) ng/mL C-Reactive Protein 19.20 H (0.0-9.9) mg/L Total Protein 5.8 L (6.3-8.3) g/dL Albumin 3.1 L D (3.5-5.0) g/dL Globulin 2.7 (2.2-3.9) gm/dL Albumin/Globulin Ratio 1.2 (1.0-2.1) Urine Color (YELLOW) Urine Clarity (Clear) Urine pH (5.0-8.0) Ur Specific [place] (1.003-1.030) Urine Protein (NEGATIVE) mg/dL Urine Glucose (UA) (Normal) mg/dL Urine Ketones (NEGATIVE) mg/dL Urine Blood (NEGATIVE) Urine Nitrate (NEGATIVE) Urine Bilirubin (NEGATIVE) Urine Urobilinogen (0.2-1.0) mg/dL Ur Leukocyte Esterase (Negative) Josselyn/uL Urine WBC (Auto) (0-5) /hpf Urine RBC (Auto) (0-3) /hpf Ur Squamous Epith Cells (0-5) /hpf Urine Opiates Screen (NEGATIVE) Urine Methadone Screen (NEGATIVE) Ur Barbiturates Screen (NEGATIVE) Ur Phencyclidine Scrn (NEGATIVE) Ur Amphetamines Screen (NEGATIVE) U Benzodiazepines Scrn (NEGATIVE) U Oth Cocaine Metabols (NEGATIVE) U Cannabinoids Screen (NEGATIVE) Ur L.pneumophila Ag (NEGATIVE) Mycoplasma pneumon IgM (NEGATIVE) 03/18/18 03/18/18 03/18/18 Range/Units 21:15 12:30 11:40 WBC (4.8-10.8) K/uL RBC (3.80-5.20) Mil/uL Hgb (11.0-16.0) g/dL Hct (34.0-47.0) % MCV (81.0-99.0) fL MCH (27.0-31.0) pg MCHC (33.0-37.0) g/dL RDW (11.5-14.5) % Plt Count (130-400) K/uL MPV (7.2-11.7) fL Neut % (Auto) (50.0-75.0) % Lymph % (Auto) (20.0-40.0) % [place] % (Auto) (0.0-10.0) % Eos % (Auto) (0.0-4.0) % Baso % (Auto) (0.0-2.0) % Neut # (Auto) (1.8-7.0) K/uL Lymph # (Auto) (1.0-4.3) K/uL [place] # (Auto) (0.0-0.8) K/uL Eos # (Auto) (0.0-0.7) K/uL Baso # (Auto) (0.0-0.2) K/uL ESR (0-20) mm/hr PT (9.7-12.2) SECONDS INR APTT (21-34) SECONDS Sodium (132-148) mmol/L Potassium (3.6-5.2) mmol/L Chloride (98-107) mmol/L Carbon Dioxide (22-30) mmol/L Anion Gap (10-20) BUN (7-17) mg/dL Creatinine (0.7-1.2) mg/dL Est GFR ( Amer) Est GFR (Non-Af Amer) POC Glucose (mg/dL) 248 H (65-110) mg/dL Random Glucose (65-105) mg/dL Calcium (8.6-10.4) mg/dl Phosphorus (2.5-4.5) mg/dL Magnesium (1.6-2.3) mg/dL Total Bilirubin (0.2-1.3) mg/dL AST (14-36) U/L ALT (9-52) U/L Alkaline Phosphatase (38-126) U/L Total Creatine Kinase 227 H (30-135) U/L CK-MB (Mass) 8.23 H (0.0-3.38) ng/mL Troponin I 2.7600 H* (0.00-0.120) ng/mL C-Reactive Protein (0.0-9.9) mg/L Total Protein (6.3-8.3) g/dL Albumin (3.5-5.0) g/dL Globulin (2.2-3.9) gm/dL Albumin/Globulin Ratio (1.0-2.1) Urine Color Straw (YELLOW) Urine Clarity Clear (Clear) Urine pH 6.0 (5.0-8.0) Ur Specific [place] 1.020 (1.003-1.030) Urine Protein Negative (NEGATIVE) mg/dL Urine Glucose (UA) 3+ H (Normal) mg/dL Urine Ketones 1+ H (NEGATIVE) mg/dL Urine Blood Negative (NEGATIVE) Urine Nitrate Negative (NEGATIVE) Urine Bilirubin Negative (NEGATIVE) Urine Urobilinogen Normal (0.2-1.0) mg/dL Ur Leukocyte Esterase Neg (Negative) Josselyn/uL Urine WBC (Auto) 1 (0-5) /hpf Urine RBC (Auto) < 1 (0-3) /hpf Ur Squamous Epith Cells 1 (0-5) /hpf Urine Opiates Screen (NEGATIVE) Urine Methadone Screen (NEGATIVE) Ur Barbiturates Screen (NEGATIVE) Ur Phencyclidine Scrn (NEGATIVE) Ur Amphetamines Screen (NEGATIVE) U Benzodiazepines Scrn (NEGATIVE) U Oth Cocaine Metabols (NEGATIVE) U Cannabinoids Screen (NEGATIVE) Ur L.pneumophila Ag (NEGATIVE) Mycoplasma pneumon IgM (NEGATIVE) 03/18/18 03/18/18 03/18/18 Range/Units 11:40 11:18 09:15 WBC (4.8-10.8) K/uL RBC (3.80-5.20) Mil/uL Hgb (11.0-16.0) g/dL Hct (34.0-47.0) % MCV (81.0-99.0) fL MCH (27.0-31.0) pg MCHC (33.0-37.0) g/dL RDW (11.5-14.5) % Plt Count (130-400) K/uL MPV (7.2-11.7) fL Neut % (Auto) (50.0-75.0) % Lymph % (Auto) (20.0-40.0) % [place] % (Auto) (0.0-10.0) % Eos % (Auto) (0.0-4.0) % Baso % (Auto) (0.0-2.0) % Neut # (Auto) (1.8-7.0) K/uL Lymph # (Auto) (1.0-4.3) K/uL [place] # (Auto) (0.0-0.8) K/uL Eos # (Auto) (0.0-0.7) K/uL Baso # (Auto) (0.0-0.2) K/uL ESR (0-20) mm/hr PT (9.7-12.2) SECONDS INR APTT (21-34) SECONDS Sodium (132-148) mmol/L Potassium (3.6-5.2) mmol/L Chloride (98-107) mmol/L Carbon Dioxide (22-30) mmol/L Anion Gap (10-20) BUN (7-17) mg/dL Creatinine (0.7-1.2) mg/dL Est GFR ( Amer) Est GFR (Non-Af Amer) POC Glucose (mg/dL) 260 H (65-110) mg/dL Random Glucose (65-105) mg/dL Calcium (8.6-10.4) mg/dl Phosphorus (2.5-4.5) mg/dL Magnesium (1.6-2.3) mg/dL Total Bilirubin (0.2-1.3) mg/dL AST (14-36) U/L ALT (9-52) U/L Alkaline Phosphatase (38-126) U/L Total Creatine Kinase (30-135) U/L CK-MB (Mass) (0.0-3.38) ng/mL Troponin I (0.00-0.120) ng/mL C-Reactive Protein (0.0-9.9) mg/L Total Protein (6.3-8.3) g/dL Albumin (3.5-5.0) g/dL Globulin (2.2-3.9) gm/dL Albumin/Globulin Ratio (1.0-2.1) Urine Color (YELLOW) Urine Clarity (Clear) Urine pH (5.0-8.0) Ur Specific [place] (1.003-1.030) Urine Protein (NEGATIVE) mg/dL Urine Glucose (UA) (Normal) mg/dL Urine Ketones (NEGATIVE) mg/dL Urine Blood (NEGATIVE) Urine Nitrate (NEGATIVE) Urine Bilirubin (NEGATIVE) Urine Urobilinogen (0.2-1.0) mg/dL Ur Leukocyte Esterase (Negative) Josselyn/uL Urine WBC (Auto) (0-5) /hpf Urine RBC (Auto) (0-3) /hpf Ur Squamous Epith Cells (0-5) /hpf Urine Opiates Screen Negative (NEGATIVE) Urine Methadone Screen Negative (NEGATIVE) Ur Barbiturates Screen Negative (NEGATIVE) Ur Phencyclidine Scrn Negative (NEGATIVE) Ur Amphetamines Screen Negative (NEGATIVE) U Benzodiazepines Scrn Negative (NEGATIVE) U Oth Cocaine Metabols Negative (NEGATIVE) U Cannabinoids Screen Negative (NEGATIVE) Ur L.pneumophila Ag Negative (NEGATIVE) Mycoplasma pneumon IgM Negative (NEGATIVE) Laboratory Results - last 24 hr 03/18/18 03/18/18 03/18/18 09:15 11:18 11:40 WBC RBC Hgb Hct MCV MCH MCHC RDW Plt Count MPV Neut % (Auto) Lymph % (Auto) [place] % (Auto) Eos % (Auto) Baso % (Auto) Neut # (Auto) Lymph # (Auto) [place] # (Auto) Eos # (Auto) Baso # (Auto) ESR PT INR APTT Sodium Potassium Chloride Carbon Dioxide Anion Gap BUN Creatinine Est GFR ( Amer) Est GFR (Non-Af Amer) POC Glucose (mg/dL) 260 H Random Glucose Calcium Phosphorus Magnesium Total Bilirubin AST ALT Alkaline Phosphatase Total Creatine Kinase CK-MB (Mass) Troponin I C-Reactive Protein Total Protein Albumin Globulin Albumin/Globulin Ratio Urine Color Urine Clarity Urine pH Ur Specific [place] Urine Protein Urine Glucose (UA) Urine Ketones Urine Blood Urine Nitrate Urine Bilirubin Urine Urobilinogen Ur Leukocyte Esterase Urine WBC (Auto) Urine RBC (Auto) Ur Squamous Epith Cells Urine Opiates Screen Negative Urine Methadone Screen Negative Ur Barbiturates Screen Negative Ur Phencyclidine Scrn Negative Ur Amphetamines Screen Negative U Benzodiazepines Scrn Negative U Oth Cocaine Metabols Negative U Cannabinoids Screen Negative Ur L.pneumophila Ag Negative Mycoplasma pneumon IgM Negative 03/18/18 03/18/18 03/18/18 11:40 12:30 21:15 WBC RBC Hgb Hct MCV MCH MCHC RDW Plt Count MPV Neut % (Auto) Lymph % (Auto) [place] % (Auto) Eos % (Auto) Baso % (Auto) Neut # (Auto) Lymph # (Auto) [place] # (Auto) Eos # (Auto) Baso # (Auto) ESR PT INR APTT Sodium Potassium Chloride Carbon Dioxide Anion Gap BUN Creatinine Est GFR ( Amer) Est GFR (Non-Af Amer) POC Glucose (mg/dL) 248 H Random Glucose Calcium Phosphorus Magnesium Total Bilirubin AST ALT Alkaline Phosphatase Total Creatine Kinase 227 H CK-MB (Mass) 8.23 H Troponin I 2.7600 H* C-Reactive Protein Total Protein Albumin Globulin Albumin/Globulin Ratio Urine Color Straw Urine Clarity Clear Urine pH 6.0 Ur Specific [place] 1.020 Urine Protein Negative Urine Glucose (UA) 3+ H Urine Ketones 1+ H Urine Blood Negative Urine Nitrate Negative Urine Bilirubin Negative Urine Urobilinogen Normal Ur Leukocyte Esterase Neg Urine WBC (Auto) 1 Urine RBC (Auto) < 1 Ur Squamous Epith Cells 1 Urine Opiates Screen Urine Methadone Screen Ur Barbiturates Screen Ur Phencyclidine Scrn Ur Amphetamines Screen U Benzodiazepines Scrn U Oth Cocaine Metabols U Cannabinoids Screen Ur L.pneumophila Ag Mycoplasma pneumon IgM 03/19/18 03/19/18 03/19/18 06:17 06:19 06:19 WBC 11.7 H RBC 3.68 L Hgb 10.2 L Hct 31.0 L MCV 84.2 MCH 27.6 MCHC 32.8 L RDW 13.5 Plt Count 367 MPV 8.7 Neut % (Auto) 59.9 Lymph % (Auto) 31.9 [place] % (Auto) 7.0 Eos % (Auto) 0.9 Baso % (Auto) 0.3 Neut # (Auto) 7.0 Lymph # (Auto) 3.7 [place] # (Auto) 0.8 Eos # (Auto) 0.1 Baso # (Auto) 0.0 ESR 27 H PT 13.6 H INR 1.2 APTT 28 D Sodium 139 Potassium 3.9 Chloride 109 H Carbon Dioxide 22 Anion Gap 13 BUN 18 H Creatinine 0.8 Est GFR ( Amer) > 60 Est GFR (Non-Af Amer) > 60 POC Glucose (mg/dL) Random Glucose 196 H Calcium 7.7 L Phosphorus 3.2 Magnesium 1.7 Total Bilirubin 0.4 AST 31 ALT 28 Alkaline Phosphatase 113 Total Creatine Kinase CK-MB (Mass) Troponin I C-Reactive Protein 19.20 H Total Protein 5.8 L Albumin 3.1 L D Globulin 2.7 Albumin/Globulin Ratio 1.2 Urine Color Urine Clarity Urine pH Ur Specific [place] Urine Protein Urine Glucose (UA) Urine Ketones Urine Blood Urine Nitrate Urine Bilirubin Urine Urobilinogen Ur Leukocyte Esterase Urine WBC (Auto) Urine RBC (Auto) Ur Squamous Epith Cells Urine Opiates Screen Urine Methadone Screen Ur Barbiturates Screen Ur Phencyclidine Scrn Ur Amphetamines Screen U Benzodiazepines Scrn U Oth Cocaine Metabols U Cannabinoids Screen Ur L.pneumophila Ag Mycoplasma pneumon IgM EKG/Cardiology Studies: Cardiology / EKG Studies 03/18/18 12:10 ELECTROCARDIOGRAM Stat Comment: Mode Of Transportation: Reason For Exam: CP Fingerstick Blood Sugar Results: 210 Review of Systems - Constitutional Constitutional: absent: Fever, Chills - Cardiovascular Cardiovascular: absent: Chest Pain, Dyspnea - Respiratory Respiratory: absent: Cough, Dyspnea - Gastrointestinal Gastrointestinal: absent: Abdominal Pain, Nausea, Vomiting - Musculoskeletal Musculoskeletal: absent: Back Pain - Neurological Neurological: absent: Confusion, Dizziness Critical Care Progress Note - Nutrition Nutrition: Nutrition Category Date Time Status Diabetic [Consistent Carbohydrate] [DIET] Diets 03/18/18 Breakfast Active Assessment/Plan - Assessment and Plan (Free Text) Assessment: 57 year old female with history of DM, HTN, HLD, bipolar disorder, fibromyalgia who presented for complaints of 3 day history of chest pain with radiation to left arm and nausea and vomiting. Troponins were found to be elevated indicative of NSTEMI. Patient experienced intermittent chest pain with nausea and vomiting, with EKG changes. Cardiac cath yesterday revealed no blockages. Plan: Neuro: alert and oriented UDS: negative Cardiovascular: Elevated troponins Hx of DM, HTN, HLD Troponins 0.3960 -->3.5700 -->3.43 --> 2.76 Repeat EKG yesterday revealed T wave inversions in V2-V4, new from prior EKGs on admission Dr. Duenas on case, help appreciated. Cardiac cath 03/18/18 revealed no coronary blockages F/u ECHO report proBNP not elevated 53.9 Plavix 75mg PO daily Coreg 3.125mg BID Lovenox 70mg SC Q12 Crestor 20mg PO Lisinopril 2.5mg PO daily Pulmonary CT chest: no evidence of acute central PE. Findings consistent with pulmonary edema/CHF with more confluent opacities-infiltrates in the lower lung aranda particularly lung bases. CXR: no acute findings Legionella, mycoplasma negative GI: Pepcid 40mg PO Renal NS IV fluids @ 100cc/hr ID Afebrile White count 11.7 Patient on Rocephin 1g IV to cover for infiltrates in lower lung aranda. Florastor 250mg BID Blood cultures: prelim negative Endo: Hx of DM medium dose ISS Heme: H/H stable at 10.2/31.0 Psych Hx of bipolar disorder Lexapro 5mg PO daily Remeron 45mg PO daily PPX: SCDs, Lovenox Case discussed with <Darius Bautista - Last Filed: 03/19/18 18:29> CCU Subjective - Physician Review Critical Care Time Spent (in minutes): 30 CCU Objective - Vital Signs / Intake & Output Vital Signs (Last 4 hours): Vital Signs Pulse Resp BP Pulse Ox 03/19/18 15:30 89 17 97 03/19/18 14:58 95 H 13 107/53 L 100 03/19/18 14:30 97 H 18 97 Intake and Output (Last 8hrs): Intake & Output 03/19/18 03/19/18 03/19/18 06:59 14:59 22:59 Intake Total 800 1200 100 Output Total 250 50 Balance 550 1150 100 Weight 147 lb 14.883 oz Intake: Intake, IV Amount 800 800 100 Left Antecubital 800 800 100 Oral 0 400 Output: Urine 250 50 Urine, Voided 250 50 Other: # Voids Urine, Voided 1 1 # Bowel Movements 0 0 - Medications Active Medications: Active Medications Generic Name Dose Route Start Last Admin Trade Name Freq PRN Reason Stop Dose Admin Carvedilol 3.125 mg 03/19/18 07:48 03/19/18 17:00 Coreg PO 3.125 mg BID CHUY Administration Clopidogrel Bisulfate 75 mg 03/19/18 10:00 03/19/18 10:21 Plavix PO 75 mg DAILY CHUY Administration Enoxaparin Sodium 70 mg 03/19/18 09:30 03/19/18 10:21 Lovenox SC 70 mg Q12H CHUY Administration Ergocalciferol 1 cap 03/18/18 10:00 03/18/18 10:14 Drisdol 50,000 Intl Units Cap PO 1 cap QWK CHUY Administration Escitalopram Oxalate 5 mg 03/18/18 10:00 03/19/18 10:24 Lexapro PO 5 mg DAILY CHUY Administration Famotidine 40 mg 03/18/18 10:00 03/19/18 10:24 Pepcid PO 40 mg DAILY CHUY Administration Ceftriaxone Sodium 1 gm/ 100 mls @ 100 mls/hr 03/18/18 10:00 03/19/18 10:37 Sodium Chloride IVPB 100 mls/hr DAILY CHUY Administration Protocol Sodium Chloride 1,000 mls @ 100 mls/hr 03/18/18 12:15 03/19/18 10:20 Sodium Chloride 0.9% IV 100 mls/hr .Q10H CHUY Administration Insulin Aspart 0 unit 03/18/18 22:00 03/19/18 17:00 Novolog SC 4 units ACHS CHUY Administration Protocol Lisinopril 2.5 mg 03/18/18 10:00 03/19/18 10:30 Zestril PO 2.5 mg DAILY CHUY Administration Mirtazapine 45 mg 03/18/18 10:00 03/19/18 10:22 Remeron PO 45 mg DAILY CHUY Administration Rosuvastatin Calcium 20 mg 03/18/18 22:00 03/18/18 21:34 Crestor PO 20 mg HS CHUY Administration Saccharomyces Boulardii 250 mg 03/18/18 10:00 03/19/18 17:00 Florastor PO 250 mg BID CHUY Administration - Patient Studies Lab Studies: Microbiology Studies 03/18/18 06:21 MRSA Culture (Admit) - Final Naris MRSA NOT DETECTED 03/18/18 03:10 Blood Culture - Preliminary Blood-Venous NO GROWTH AFTER 24 HOURS 03/18/18 03:10 Blood Culture - Preliminary Blood-Venous NO GROWTH AFTER 24 HOURS Lab Studies 03/19/18 03/19/18 03/19/18 Range/Units 16:21 11:09 07:16 WBC (4.8-10.8) K/uL RBC (3.80-5.20) Mil/uL Hgb (11.0-16.0) g/dL Hct (34.0-47.0) % MCV (81.0-99.0) fL MCH (27.0-31.0) pg MCHC (33.0-37.0) g/dL RDW (11.5-14.5) % Plt Count (130-400) K/uL MPV (7.2-11.7) fL Neut % (Auto) (50.0-75.0) % Lymph % (Auto) (20.0-40.0) % [place] % (Auto) (0.0-10.0) % Eos % (Auto) (0.0-4.0) % Baso % (Auto) (0.0-2.0) % Neut # (Auto) (1.8-7.0) K/uL Lymph # (Auto) (1.0-4.3) K/uL [place] # (Auto) (0.0-0.8) K/uL Eos # (Auto) (0.0-0.7) K/uL Baso # (Auto) (0.0-0.2) K/uL ESR (0-20) mm/hr PT (9.7-12.2) SECONDS INR APTT (21-34) SECONDS Sodium (132-148) mmol/L Potassium (3.6-5.2) mmol/L Chloride (98-107) mmol/L Carbon Dioxide (22-30) mmol/L Anion Gap (10-20) BUN (7-17) mg/dL Creatinine (0.7-1.2) mg/dL Est GFR ( Amer) Est GFR (Non-Af Amer) POC Glucose (mg/dL) 269 H 246 H 210 H (65-110) mg/dL Random Glucose (65-105) mg/dL Calcium (8.6-10.4) mg/dl Phosphorus (2.5-4.5) mg/dL Magnesium (1.6-2.3) mg/dL Total Bilirubin (0.2-1.3) mg/dL AST (14-36) U/L ALT (9-52) U/L Alkaline Phosphatase (38-126) U/L C-Reactive Protein (0.0-9.9) mg/L Total Protein (6.3-8.3) g/dL Albumin (3.5-5.0) g/dL Globulin (2.2-3.9) gm/dL Albumin/Globulin Ratio (1.0-2.1) Mycoplasma pneumon IgM (NEGATIVE) 03/19/18 03/19/18 03/19/18 Range/Units 06:19 06:19 06:17 WBC 11.7 H (4.8-10.8) K/uL RBC 3.68 L (3.80-5.20) Mil/uL Hgb 10.2 L (11.0-16.0) g/dL Hct 31.0 L (34.0-47.0) % MCV 84.2 (81.0-99.0) fL MCH 27.6 (27.0-31.0) pg MCHC 32.8 L (33.0-37.0) g/dL RDW 13.5 (11.5-14.5) % Plt Count 367 (130-400) K/uL MPV 8.7 (7.2-11.7) fL Neut % (Auto) 59.9 (50.0-75.0) % Lymph % (Auto) 31.9 (20.0-40.0) % [place] % (Auto) 7.0 (0.0-10.0) % Eos % (Auto) 0.9 (0.0-4.0) % Baso % (Auto) 0.3 (0.0-2.0) % Neut # (Auto) 7.0 (1.8-7.0) K/uL Lymph # (Auto) 3.7 (1.0-4.3) K/uL [place] # (Auto) 0.8 (0.0-0.8) K/uL Eos # (Auto) 0.1 (0.0-0.7) K/uL Baso # (Auto) 0.0 (0.0-0.2) K/uL ESR 27 H (0-20) mm/hr PT 13.6 H (9.7-12.2) SECONDS INR 1.2 APTT 28 D (21-34) SECONDS Sodium 139 (132-148) mmol/L Potassium 3.9 (3.6-5.2) mmol/L Chloride 109 H (98-107) mmol/L Carbon Dioxide 22 (22-30) mmol/L Anion Gap 13 (10-20) BUN 18 H (7-17) mg/dL Creatinine 0.8 (0.7-1.2) mg/dL Est GFR ( Amer) > 60 Est GFR (Non-Af Amer) > 60 POC Glucose (mg/dL) (65-110) mg/dL Random Glucose 196 H (65-105) mg/dL Calcium 7.7 L (8.6-10.4) mg/dl Phosphorus 3.2 (2.5-4.5) mg/dL Magnesium 1.7 (1.6-2.3) mg/dL Total Bilirubin 0.4 (0.2-1.3) mg/dL AST 31 (14-36) U/L ALT 28 (9-52) U/L Alkaline Phosphatase 113 (38-126) U/L C-Reactive Protein 19.20 H (0.0-9.9) mg/L Total Protein 5.8 L (6.3-8.3) g/dL Albumin 3.1 L D (3.5-5.0) g/dL Globulin 2.7 (2.2-3.9) gm/dL Albumin/Globulin Ratio 1.2 (1.0-2.1) Mycoplasma pneumon IgM (NEGATIVE) 03/18/18 03/18/18 Range/Units 21:15 09:15 WBC (4.8-10.8) K/uL RBC (3.80-5.20) Mil/uL Hgb (11.0-16.0) g/dL Hct (34.0-47.0) % MCV (81.0-99.0) fL MCH (27.0-31.0) pg MCHC (33.0-37.0) g/dL RDW (11.5-14.5) % Plt Count (130-400) K/uL MPV (7.2-11.7) fL Neut % (Auto) (50.0-75.0) % Lymph % (Auto) (20.0-40.0) % [place] % (Auto) (0.0-10.0) % Eos % (Auto) (0.0-4.0) % Baso % (Auto) (0.0-2.0) % Neut # (Auto) (1.8-7.0) K/uL Lymph # (Auto) (1.0-4.3) K/uL [place] # (Auto) (0.0-0.8) K/uL Eos # (Auto) (0.0-0.7) K/uL Baso # (Auto) (0.0-0.2) K/uL ESR (0-20) mm/hr PT (9.7-12.2) SECONDS INR APTT (21-34) SECONDS Sodium (132-148) mmol/L Potassium (3.6-5.2) mmol/L Chloride (98-107) mmol/L Carbon Dioxide (22-30) mmol/L Anion Gap (10-20) BUN (7-17) mg/dL Creatinine (0.7-1.2) mg/dL Est GFR ( Amer) Est GFR (Non-Af Amer) POC Glucose (mg/dL) 248 H (65-110) mg/dL Random Glucose (65-105) mg/dL Calcium (8.6-10.4) mg/dl Phosphorus (2.5-4.5) mg/dL Magnesium (1.6-2.3) mg/dL Total Bilirubin (0.2-1.3) mg/dL AST (14-36) U/L ALT (9-52) U/L Alkaline Phosphatase (38-126) U/L C-Reactive Protein (0.0-9.9) mg/L Total Protein (6.3-8.3) g/dL Albumin (3.5-5.0) g/dL Globulin (2.2-3.9) gm/dL Albumin/Globulin Ratio (1.0-2.1) Mycoplasma pneumon IgM Negative (NEGATIVE) Laboratory Results - last 24 hr 03/18/18 03/18/18 03/19/18 09:15 21:15 06:17 WBC RBC Hgb Hct MCV MCH MCHC RDW Plt Count MPV Neut % (Auto) Lymph % (Auto) [place] % (Auto) Eos % (Auto) Baso % (Auto) Neut # (Auto) Lymph # (Auto) [place] # (Auto) Eos # (Auto) Baso # (Auto) ESR PT INR APTT Sodium 139 Potassium 3.9 Chloride 109 H Carbon Dioxide 22 Anion Gap 13 BUN 18 H Creatinine 0.8 Est GFR ( Amer) > 60 Est GFR (Non-Af Amer) > 60 POC Glucose (mg/dL) 248 H Random Glucose 196 H Calcium 7.7 L Phosphorus 3.2 Magnesium 1.7 Total Bilirubin 0.4 AST 31 ALT 28 Alkaline Phosphatase 113 C-Reactive Protein 19.20 H Total Protein 5.8 L Albumin 3.1 L D Globulin 2.7 Albumin/Globulin Ratio 1.2 Mycoplasma pneumon IgM Negative 03/19/18 03/19/18 03/19/18 06:19 06:19 07:16 WBC 11.7 H RBC 3.68 L Hgb 10.2 L Hct 31.0 L MCV 84.2 MCH 27.6 MCHC 32.8 L RDW 13.5 Plt Count 367 MPV 8.7 Neut % (Auto) 59.9 Lymph % (Auto) 31.9 [place] % (Auto) 7.0 Eos % (Auto) 0.9 Baso % (Auto) 0.3 Neut # (Auto) 7.0 Lymph # (Auto) 3.7 [place] # (Auto) 0.8 Eos # (Auto) 0.1 Baso # (Auto) 0.0 ESR 27 H PT 13.6 H INR 1.2 APTT 28 D Sodium Potassium Chloride Carbon Dioxide Anion Gap BUN Creatinine Est GFR ( Amer) Est GFR (Non-Af Amer) POC Glucose (mg/dL) 210 H Random Glucose Calcium Phosphorus Magnesium Total Bilirubin AST ALT Alkaline Phosphatase C-Reactive Protein Total Protein Albumin Globulin Albumin/Globulin Ratio Mycoplasma pneumon IgM 03/19/18 03/19/18 11:09 16:21 WBC RBC Hgb Hct MCV MCH MCHC RDW Plt Count MPV Neut % (Auto) Lymph % (Auto) [place] % (Auto) Eos % (Auto) Baso % (Auto) Neut # (Auto) Lymph # (Auto) [place] # (Auto) Eos # (Auto) Baso # (Auto) ESR PT INR APTT Sodium Potassium Chloride Carbon Dioxide Anion Gap BUN Creatinine Est GFR ( Amer) Est GFR (Non-Af Amer) POC Glucose (mg/dL) 246 H 269 H Random Glucose Calcium Phosphorus Magnesium Total Bilirubin AST ALT Alkaline Phosphatase C-Reactive Protein Total Protein Albumin Globulin Albumin/Globulin Ratio Mycoplasma pneumon IgM Critical Care Progress Note - Nutrition Nutrition: Nutrition Category Date Time Status Diabetic [Consistent Carbohydrate] [DIET] Diets 03/18/18 Breakfast Active Attending/Attestation - Attestation I have personally seen and examined this patient.: Yes I have fully participated in the care of the patient.: Yes I have reviewed all pertinent clinical information: Yes Notes (Text): 03/19/18 18:25 patient seen and examined in the intensive care unit. Status post cardiac cath with normal coronaries Elevated troponins noted Patient started on Plavix Transferred to telemetry
[2018-03-19 20:03] LABS: CK-MB 2.06 ng/mL (0.0-3.38); TROPONIN I 0.748 ng/mL (0.00-0.120)
[2018-03-19] MEDS ORDERED: Dextrose 50% SYRINGE Inj (50 ml) IV PRN (21:42)
[2018-03-19] MEDS ORDERED: Glucagon Recombinant 1 mg Inj IM PRN (21:42)
[2018-03-19] MEDS ORDERED: Dextrose 50% SYRINGE Inj (50 ml) IVP PRN (21:42)
--- NOTE | 2018-03-20 05:31 | CARD ---
APPROVED REPORT Date of service: 03/18/2018 EXAM: Two-dimensional and M-mode echocardiogram with Doppler, color Doppler with contrast. Other Information Quality : GoodRhythm : INDICATION Cardiac Disease: CAD Chest Pain Echo Enhancing Agent Indication: Rule out thrombus Agent/Amount Used: Definity RISK FACTORS Hypertension Hyperlipidemia 2D DIMENSIONS IVSd1.1 (0.7-1.1cm)LVDd3.5 (3.9-5.9cm) PWd1.0 (0.7-1.1cm)LVDs2.9 (2.5-4.0cm) LVEF (%)38.0 (>50%) M-Mode DIMENSIONS IVSd1.00 (0.7-1.1cm)LVDd5.10 (4.0-5.6cm) PWd0.80 (0.7-1.1cm)LVDs4.30 (2.0-3.8cm) LVEF (%)40 (>50%) Mitral Valve MV E Velocity0.7cm/sMV A Velocity0.4cm/sE/A ratio1.8 TDI Lateral E' Peak V0.70cm/sMedial E' Peak V0.70cm/sE/Lateral E'1.0 E/Medial E'1.0 Tricuspid Valve RAP [id number] Peak [id number] LEFT VENTRICLE The left ventricle is normal size. There is normal left ventricular wall thickness. Left ventricle systolic function is mildly to moderately impaired. The Ejection Fraction is 35-40%. There is mild to moderate global hypokinesis of the left ventricle. The left ventricular diastolic function is normal. No left ventricle thrombus noted on DEFINITY contrast study. RIGHT VENTRICLE The right ventricle is normal size. There is normal right ventricular wall thickness. Systolic function is mildly to moderately reduced. ATRIA The left atrium size is normal. The right atrium size is normal. The interatrial septum is intact with no evidence for an atrial septal defect. AORTIC VALVE The aortic valve is normal in structure. No aortic regurgitation is present. There is no aortic valvular stenosis. There is no aortic valvular vegetation. MITRAL VALVE The mitral valve is normal in structure. There is no evidence of mitral valve prolapse. There is no mitral valve stenosis. There is no mitral valve regurgitation noted. TRICUSPID VALVE The tricuspid valve is normal in structure. There is mild tricuspid regurgitation. Right ventricular systolic pressure is estimated at less than 30 mmHg. There is no pulmonary hypertension. PULMONIC VALVE The pulmonic valve is not well visualized. There is mild pulmonic valvular regurgitation. There is no pulmonic valvular stenosis. GREAT VESSELS The aortic root is normal in size. PERICARDIAL EFFUSION There is no significant pericardial effusion. <Conclusion> Left ventricle systolic function is mildly to moderately impaired. The Ejection Fraction is 35-40%. There is mild to moderate global hypokinesis of the left ventricle. No left ventricle thrombus noted on DEFINITY contrast study. No aortic regurgitation is present. There is no mitral valve regurgitation noted. There is mild tricuspid regurgitation. There is no pulmonary hypertension. There is mild pulmonic valvular regurgitation.
--- NOTE | 2018-03-20 07:17 | CP.PCM.DIS ---
Provider - Provider Date of Admission: 03/17/18 22:44 Attending physician: Tyra Gifford, DO Hospital Course - Lab Results Lab Results: Micro Results 03/18/18 03:10 Blood-Venous Blood Culture - Preliminary NO GROWTH AFTER 48 HOURS 03/18/18 03:10 Blood-Venous Blood Culture - Preliminary NO GROWTH AFTER 48 HOURS 03/18/18 06:21 Naris MRSA Culture (Admit) - Final MRSA NOT DETECTED Most Recent Lab Values WBC 11.7 K/uL (4.8-10.8) H 03/19/18 06:19 RBC 3.68 Mil/uL (3.80-5.20) L 03/19/18 06:19 Hgb 10.2 g/dL (11.0-16.0) L 03/19/18 06:19 Hct 31.0 % (34.0-47.0) L 03/19/18 06:19 MCV 84.2 fL (81.0-99.0) 03/19/18 06:19 MCH 27.6 pg (27.0-31.0) 03/19/18 06:19 MCHC 32.8 g/dL (33.0-37.0) L 03/19/18 06:19 RDW 13.5 % (11.5-14.5) 03/19/18 06:19 Plt Count 367 K/uL (130-400) 03/19/18 06:19 MPV 8.7 fL (7.2-11.7) 03/19/18 06:19 Neut % (Auto) 59.9 % (50.0-75.0) 03/19/18 06:19 Lymph % (Auto) 31.9 % (20.0-40.0) 03/19/18 06:19 [place] % (Auto) 7.0 % (0.0-10.0) 03/19/18 06:19 Eos % (Auto) 0.9 % (0.0-4.0) 03/19/18 06:19 Baso % (Auto) 0.3 % (0.0-2.0) 03/19/18 06:19 Neut # (Auto) 7.0 K/uL (1.8-7.0) 03/19/18 06:19 Lymph # (Auto) 3.7 K/uL (1.0-4.3) 03/19/18 06:19 [place] # (Auto) 0.8 K/uL (0.0-0.8) 03/19/18 06:19 Eos # (Auto) 0.1 K/uL (0.0-0.7) 03/19/18 06:19 Baso # (Auto) 0.0 K/uL (0.0-0.2) 03/19/18 06:19 ESR 27 mm/hr (0-20) H 03/19/18 06:19 PT 13.6 SECONDS (9.7-12.2) H 03/19/18 06:19 INR 1.2 03/19/18 06:19 APTT 28 SECONDS (21-34) D 03/19/18 06:19 Sodium 139 mmol/L (132-148) 03/19/18 06:17 Potassium 3.9 mmol/L (3.6-5.2) 03/19/18 06:17 Chloride 109 mmol/L (98-107) H 03/19/18 06:17 Carbon Dioxide 22 mmol/L (22-30) 03/19/18 06:17 Anion Gap 13 (10-20) 03/19/18 06:17 BUN 18 mg/dL (7-17) H 03/19/18 06:17 Creatinine 0.8 mg/dL (0.7-1.2) 03/19/18 06:17 Est GFR ( Amer) > 60 03/19/18 06:17 Est GFR (Non-Af Amer) > 60 03/19/18 06:17 POC Glucose (mg/dL) 218 mg/dL (65-110) H 03/20/18 07:10 Random Glucose 196 mg/dL (65-105) H 03/19/18 06:17 Hemoglobin A1c 9.7 % (4.2-6.5) H 03/17/18 21:00 Calcium 7.7 mg/dl (8.6-10.4) L 03/19/18 06:17 Phosphorus 3.2 mg/dL (2.5-4.5) 03/19/18 06:17 Magnesium 1.7 mg/dL (1.6-2.3) 03/19/18 06:17 Total Bilirubin 0.4 mg/dL (0.2-1.3) 03/19/18 06:17 AST 31 U/L (14-36) 03/19/18 06:17 ALT 28 U/L (9-52) 03/19/18 06:17 Alkaline Phosphatase 113 U/L (38-126) 03/19/18 06:17 Total Creatine Kinase 160 U/L (30-135) H 03/19/18 19:30 CK-MB (Mass) 2.06 ng/mL (0.0-3.38) 03/19/18 19:30 Troponin I 0.7480 ng/mL (0.00-0.120) H* 03/19/18 19:30 C-Reactive Protein 19.20 mg/L (0.0-9.9) H 03/19/18 06:17 NT-Pro-B Natriuret Pep 53.9 pg/mL (0-900) 03/17/18 22:10 Total Protein 5.8 g/dL (6.3-8.3) L 03/19/18 06:17 Albumin 3.1 g/dL (3.5-5.0) L D 03/19/18 06:17 Globulin 2.7 gm/dL (2.2-3.9) 03/19/18 06:17 Albumin/Globulin Ratio 1.2 (1.0-2.1) 03/19/18 06:17 Triglycerides 122 mg/dL (0-149) 03/18/18 03:10 Cholesterol 169 mg/dL (0-199) 03/18/18 03:10 LDL Cholesterol Direct 85 mg/dL (0-129) 03/18/18 03:10 HDL Cholesterol 53 mg/dL (30-70) 03/18/18 03:10 Free T4 1.24 ng/dL (0.78-2.19) 03/18/18 03:10 TSH 3rd Generation 3.34 mIU/L (0.46-4.68) 03/18/18 01:02 Urine Color Straw (YELLOW) 03/18/18 11:40 Urine Clarity Clear (Clear) 03/18/18 11:40 Urine pH 6.0 (5.0-8.0) 03/18/18 11:40 Ur Specific [place] 1.020 (1.003-1.030) 03/18/18 11:40 Urine Protein Negative mg/dL (NEGATIVE) 03/18/18 11:40 Urine Glucose (UA) 3+ mg/dL (Normal) H 03/18/18 11:40 Urine Ketones 1+ mg/dL (NEGATIVE) H 03/18/18 11:40 Urine Blood Negative (NEGATIVE) 03/18/18 11:40 Urine Nitrate Negative (NEGATIVE) 03/18/18 11:40 Urine Bilirubin Negative (NEGATIVE) 03/18/18 11:40 Urine Urobilinogen Normal mg/dL (0.2-1.0) 03/18/18 11:40 Ur Leukocyte Esterase Neg [place]/uL (Negative) 03/18/18 11:40 Urine WBC (Auto) 1 /hpf (0-5) 03/18/18 11:40 Urine RBC (Auto) < 1 /hpf (0-3) 03/18/18 11:40 Ur Squamous Epith Cells 1 /hpf (0-5) 03/18/18 11:40 Urine Opiates Screen Negative (NEGATIVE) 03/18/18 11:40 Urine Methadone Screen Negative (NEGATIVE) 03/18/18 11:40 Ur Barbiturates Screen Negative (NEGATIVE) 03/18/18 11:40 Ur Phencyclidine Scrn Negative (NEGATIVE) 03/18/18 11:40 Ur Amphetamines Screen Negative (NEGATIVE) 03/18/18 11:40 U Benzodiazepines Scrn Negative (NEGATIVE) 03/18/18 11:40 U Oth Cocaine Metabols Negative (NEGATIVE) 03/18/18 11:40 U Cannabinoids Screen Negative (NEGATIVE) 03/18/18 11:40 B-Hydroxybutyrate 0.22 mM (0.02-0.27) 03/17/18 22:10 Ur L.pneumophila Ag Negative (NEGATIVE) 03/18/18 09:15 Mycoplasma pneumon IgM Negative (NEGATIVE) 03/18/18 09:15 Ur Strep pneumoniae Ag Not detected (Not Detected) 03/18/18 09:26 Blood Type O POSITIVE 03/17/18 21:03 Antibody Screen Negative 03/17/18 21:03 Discharge Exam - Head Exam Head Exam: NORMAL INSPECTION Discharge Plan - Follow Up Plan Condition: GUARDED Disposition: HOME/ ROUTINE
--- NOTE | 2018-03-20 07:31 | CARD ---
APPROVED REPORT Date of service: 03/17/2018 EKG Measurement Heart [id number] <Conclusion> Sinus tachycardia Otherwise normal ECG
--- NOTE | 2018-03-20 08:06 | CP.PCM.PN ---
<Garrett Naik - Last Filed: 03/21/18 08:27> Subjective - Date & Time of Evaluation Date of Evaluation: 03/20/18 Time of Evaluation: 08:03 - Subjective Subjective: CARDIOLOGY PROGRESS NOTE FOR DR. SUKHJINDER EstradaO. PGY-1 Patient seen and examined at bedside this am. No acute complaints or nursing events overnight. Pt ambulating well, tolerating diet without any complaints. Pt denies chest pain, palpitations, SOB, headache, diophoresis, dizziness, nausea/vomiting, constipation, diarrhea. Objective - Vital Signs/Intake and Output Vital Signs (last 24 hours): Temp Pulse Resp BP Pulse Ox 98.8 F 109 H 19 123/70 91 L 03/20/18 04:00 03/20/18 05:00 03/20/18 05:00 03/20/18 04:59 03/20/18 05:00 Intake and Output: 03/20/18 03/20/18 06:59 18:59 Intake Total 1150 Output Total 300 Balance 850 - Medications Medications: Current Medications Carvedilol (Coreg) 3.125 mg PO BID [facility] Last Admin: 03/19/18 17:00 Dose: 3.125 mg Clopidogrel Bisulfate (Plavix) 75 mg PO DAILY [facility] Last Admin: 03/19/18 10:21 Dose: 75 mg Dextrose (Dextrose 50% Inj) 50 ml IVP ONCE PRN PRN Reason: Hypoglycemia Dextrose (Dextrose 50% Inj) 0 ml IV STAT PRN; Protocol PRN Reason: Hypoglycemia Protocol Dextrose (Glutose 15) 0 gm PO ONCE PRN; Protocol PRN Reason: Hypoglycemia Protocol Enoxaparin Sodium (Lovenox) 40 mg SC DAILY [facility] Ergocalciferol (Drisdol 50,000 Intl Units Cap) 1 cap PO QWK [facility] Last Admin: 03/18/18 10:14 Dose: 1 cap Escitalopram Oxalate (Lexapro) 5 mg PO DAILY [facility] Last Admin: 03/19/18 10:24 Dose: 5 mg Famotidine (Pepcid) 40 mg PO DAILY [facility] Last Admin: 03/19/18 10:24 Dose: 40 mg Glucagon (Glucagen Diagnostic Kit) 0 mg IM STAT PRN; Protocol PRN Reason: Hypoglycemia Protocol Ceftriaxone Sodium 1 gm/ (Sodium Chloride) 100 mls @ 100 mls/hr IVPB DAILY [facility] PRN Reason: Protocol Last Admin: 03/19/18 10:37 Dose: 100 mls/hr Dextrose (Dextrose 5% In Water 1000 Ml) 1,000 mls @ 0 mls/hr IV .Q0M PRN; Protocol; Per Protocol PRN Reason: Hypoglycemia Protocol Insulin Aspart (Novolog) 0 unit SC ACHS [facility] PRN Reason: Protocol Last Admin: 03/19/18 21:32 Dose: Not Given Lisinopril (Zestril) 2.5 mg PO DAILY [facility] Last Admin: 03/19/18 10:30 Dose: 2.5 mg Metformin HCl (Glucophage) 1,000 mg PO BID [facility] Mirtazapine (Remeron) 45 mg PO DAILY [facility] Last Admin: 03/19/18 10:22 Dose: 45 mg Rosuvastatin Calcium (Crestor) 20 mg PO HS [facility] Last Admin: 03/19/18 21:21 Dose: 20 mg Saccharomyces Boulardii (Florastor) 250 mg PO BID [facility] Last Admin: 03/19/18 17:00 Dose: 250 mg Sitagliptin Phosphate (Januvia) 25 mg PO DAILY [facility] - Labs Labs: 03/19/18 06:19 03/19/18 06:17 PT 13.6 SECONDS (9.7-12.2) H 03/19/18 06:19 INR 1.2 03/19/18 06:19 APTT 28 SECONDS (21-34) D 03/19/18 06:19 - Constitutional Appears: Well, Non-toxic, No Acute Distress - Head Exam Head Exam: NORMAL INSPECTION - Eye Exam Eye Exam: EOMI, Normal appearance - ENT Exam ENT Exam: Mucous Membranes Moist, Normal Exam - Neck Exam Neck Exam: Normal Inspection - Respiratory Exam Respiratory Exam: Clear to Ausculation Bilateral, NORMAL BREATHING PATTERN - Cardiovascular Exam Cardiovascular Exam: Tachycardia, +S1, +S2 - GI/Abdominal Exam GI & Abdominal Exam: Soft, Normal Bowel Sounds - Extremities Exam Extremities Exam: Normal Capillary Refill, Normal Inspection - Back Exam Back Exam: NORMAL INSPECTION - Neurological Exam Neurological Exam: Alert, Awake, Oriented x3 - Psychiatric Exam Psychiatric exam: Normal Affect, Normal Mood - Skin Skin Exam: Dry, Intact, Warm Assessment and Plan - Assessment and Plan (Free Text) Assessment: 57 y/o F with pmhx/ HTN, DM POD1 s/p cardiac cath admitted and consulted by cardiology for chest pain/NSTEMI. Pt found to have elevated BNP with increased inflammatory markers Plan: Acute perimyocarditis w/ decompensated heart failure ESR: 42 CRP: 18 BNP: 53.9 (03/17/18)--> 4870 (03/20/18) D/c carvedilol, start metoprolol 25mg bid. Allergy to aspirin continue lisinopril NSTEMI POD1 s/p cardiac cath Non-ischemic cardiomyopathy. Normal coronary arteries without occlusion Continue plavix, D/c brilinta & therapeutic lovenox. ambulate as tolerated HTN start metoprolol 25mg bid continue lisinopril DM2 continue metformin continue sitagliptin HLD continue rosuvastatin DVT/GIppx: Lovenox/Famotidine Case seen, examined and discussed with attending physician, Dr. Duenas <Jose Duenas - Last Filed: 03/21/18 15:32> Objective - Vital Signs/Intake and Output Vital Signs (last 24 hours): Temp Pulse Resp BP Pulse Ox 98.7 F 111 H 18 105/66 96 03/21/18 07:15 03/21/18 07:15 03/21/18 07:15 03/21/18 12:04 03/21/18 07:15 Intake and Output: 03/21/18 03/21/18 06:59 18:59 Intake Total 250 Balance 250 - Medications Medications: Current Medications Alprazolam (Xanax) 0.5 mg PO BID PRN PRN Reason: Anxiety Clopidogrel Bisulfate (Plavix) 75 mg PO DAILY [facility] Last Admin: 03/21/18 09:47 Dose: 75 mg Dextrose (Dextrose 50% Inj) 50 ml IVP ONCE PRN PRN Reason: Hypoglycemia Dextrose (Dextrose 50% Inj) 0 ml IV STAT PRN; Protocol PRN Reason: Hypoglycemia Protocol Dextrose (Glutose 15) 0 gm PO ONCE PRN; Protocol PRN Reason: Hypoglycemia Protocol Divalproex Sodium (Depakote Dr) 500 mg PO TID [facility] Last Admin: 03/21/18 14:01 Dose: 500 mg Enoxaparin Sodium (Lovenox) 40 mg SC DAILY [facility] Last Admin: 03/21/18 10:03 Dose: 40 mg Ergocalciferol (Drisdol 50,000 Intl Units Cap) 1 cap PO QWK [facility] Last Admin: 03/18/18 10:14 Dose: 1 cap Escitalopram Oxalate (Lexapro) 5 mg PO DAILY [facility] Last Admin: 03/21/18 09:42 Dose: 5 mg Famotidine (Pepcid) 40 mg PO DAILY [facility] Last Admin: 03/21/18 09:42 Dose: 40 mg Glucagon (Glucagen Diagnostic Kit) 0 mg IM STAT PRN; Protocol PRN Reason: Hypoglycemia Protocol Ceftriaxone Sodium 1 gm/ (Sodium Chloride) 100 mls @ 100 mls/hr IVPB DAILY [facility] PRN Reason: Protocol Last Admin: 03/21/18 10:03 Dose: Not Given Dextrose (Dextrose 5% In Water 1000 Ml) 1,000 mls @ 0 mls/hr IV .Q0M PRN; Protocol; Per Protocol PRN Reason: Hypoglycemia Protocol Insulin Aspart (Novolog) 0 unit SC ACHS [facility] PRN Reason: Protocol Last Admin: 03/21/18 12:13 Dose: 6 units Lisinopril (Zestril) 2.5 mg PO DAILY [facility] Last Admin: 03/21/18 09:58 Dose: 2.5 mg Metformin HCl (Glucophage) 1,000 mg PO BID [facility] Last Admin: 03/21/18 09:48 Dose: 1,000 mg Metoprolol Tartrate (Lopressor) 50 mg PO BID [facility] Mirtazapine (Remeron) 45 mg PO DAILY [facility] Last Admin: 03/21/18 09:41 Dose: 45 mg Rosuvastatin Calcium (Crestor) 20 mg PO HS [facility] Last Admin: 03/20/18 22:01 Dose: 20 mg Saccharomyces Boulardii (Florastor) 250 mg PO BID [facility] Last Admin: 03/21/18 09:41 Dose: 250 mg Sitagliptin Phosphate (Januvia) 25 mg PO DAILY [facility] Last Admin: 03/21/18 09:42 Dose: 25 mg - Labs Labs: 03/21/18 08:09 03/21/18 08:09 PT 13.6 SECONDS (9.7-12.2) H 03/19/18 06:19 INR 1.2 03/19/18 06:19 APTT 28 SECONDS (21-34) D 03/19/18 06:19 Assessment and Plan (1) NSTEMI (non-ST elevated myocardial infarction) Status: Acute (2) Chest pain due to CAD Status: Acute (3) HTN (hypertension) Status: Chronic (4) Tachyarrhythmia Status: Acute (5) Dyslipidemia Status: Chronic Attending/Attestation - Attestation I have personally seen and examined this patient.: Yes I have fully participated in the care of the patient.: Yes I have reviewed all pertinent clinical information, including history, physical exam and plan: Yes Notes (Text): 03/21/18 15:31 Decompensated CHF 2' to myocarditis - etiology ? viral normal coronaries BB + RAAS modulation for afterload reduction
[2018-03-20] MEDS: (Novolog) Insulin Aspart, Recombinant 100 u/ml 10 ml vial SC SCH ×4 (08:25→21:45)
--- NOTE | 2018-03-20 08:33 | PCM.HF ---
Heart Failure Core Measure - Heart Failure Ejection Fraction: 40 % or Greater Left Ventricular Function to be assessed after discharge: Yes JERALD Inhibitor Prescribed: Yes Beta-Zakia Prescribed: Carvedilol Angiotensin II Receptor Zakia Prescribed: No Contraindication/Reason for not providing: d/c on jerald AnticoagulationTherapy for Atrial Fibrillation/Atrialflutter: No Contraindication/Reason for not providing: not clinically indicated Aldosterone Antagonist Prescribed: No Contraindication/Reason for not providing: not clinically indicated Hydralazine Nitrate Prescribed: No Contraindication/Reason for not providing: not clinically indicated Implantable Cardioverter Defibrillator Therapy: No Contraindication/Reason for not providing: not clinically indicated Cardiac Resynchronization Therapy Prescribed: No Contraindication/Reason for not providing: not clinically indicated - Follow up Will be discharged to: Home Follow Up Date (must be within 7 days from discharge): 03/27/18 Follow Up Time: 09:00
[2018-03-20] MEDS: Saccharomyces Boulardi 250 mg Cap PO SCH ×2 (09:18→17:22)
[2018-03-20 09:25] LABS: ABG ALLEN TEST PO; ARTERIAL BLOOD GAS HCO3 19.8 mmol/L (21-28); ARTERIAL BLOOD GAS HEMOGLOBIN 10.4 g/dL (11.7-17.4); ARTERIAL BLOOD GAS PCO2 24 mm/Hg (35-45); ARTERIAL BLOOD GAS PH 7.44 (7.35-7.45); ARTERIAL BLOOD GAS PO2 68 mm/Hg (80-100)
[2018-03-20] MEDS: Enoxaparin 40 mg Syringe SC SCH (09:26)
[2018-03-20 10:14] LABS: BASO % 0.4 % (0.0-2.0); EOS # 0.1 K/uL (0.0-0.7); EOS % 1.2 % (0.0-4.0); LYMPH # 3.7 K/uL (1.0-4.3); LYMPH % 30.5 % (20.0-40.0); MEAN CELL VOLUME 84.3 fL (81.0-99.0); MEAN CORPUSCULAR HEMOGLOBIN 27.6 pg (27.0-31.0); MEAN CORPUSCULAR HGB CONC 32.7 g/dL (33.0-37.0); MEAN PLATELET VOLUME 8.6 fL (7.2-11.7); MONO # 0.7 K/uL (0.0-0.8); MONO % 6.1 % (0.0-10.0); NEUT # 7.5 K/uL (1.8-7.0); NEUT % 61.8 % (50.0-75.0); RBC 3.61 Mil/uL (3.80-5.20); RED CELL DISTRIBUTION WIDTH 13.5 % (11.5-14.5); WHITE BLOOD COUNT 12.2 K/uL (4.8-10.8)
[2018-03-20 10:29] LABS: ALB/GLOB RATIO 1.3 (1.0-2.1); ALBUMIN 3.4 g/dL (3.5-5.0); ALT/SGPT 31 U/L (9-52); AST/SGOT 33 U/L (14-36); BLOOD UREA NITROGEN 16 mg/dL (7-17); CALCIUM 8.1 mg/dl (8.6-10.4); CK-MB 1.61 ng/mL (0.0-3.38); GFR NON-AFRICAN AMERICAN > 60
--- NOTE | 2018-03-20 18:49 | CP.PCM.PN ---
<Reza Cruz - Last Filed: 03/20/18 18:43> Subjective - Date & Time of Evaluation Date of Evaluation: 03/20/18 Time of Evaluation: 18:43 - Subjective Subjective: PGY1 Medicine Progress Note for Dr. Gifford Patient seen and examined at bedside this morning and later in the afternoon. No acute complaints or nursing events overnight. Patient has been able to ambulate well and is tolerating diet without any complaints. Patient denies chest pain, palpitations, SOB, headache, diaphoresis, dizziness, nausea/vomiting , constipation, diarrhea. Patient requested to sign out AMA around 7AM this morning, and also refused any blood work this morning. However after being explained risks and benefits of leaving prior to being seen by the physician and /or leaving prior to waiting for pertinent blood work results, the patient agreed to stay. Patient was seen again in the afternoon, as the patient was told that she was unstable for discharge today. Patient was upset and wanted to go home. Patient stated her reasons for wanting to leave was due to her phobia of needles and getting "poked." After discussion with Dr. Gifford at bedside, patient agree to stay and continue with the management, per Regional Guide, Dr. Duenas recommendation. Of note, patient states she has taken advil (liquid) and denied allergic reaction. Objective - Vital Signs/Intake and Output Vital Signs (last 24 hours): Temp Pulse Resp BP Pulse Ox 98.5 F 82 18 131/72 92 L 03/20/18 16:00 03/20/18 12:00 03/20/18 16:00 03/20/18 17:22 03/20/18 16:00 Intake and Output: 03/20/18 03/20/18 06:59 18:59 Intake Total 1150 650 Output Total 300 1 Balance 850 649 - Medications Medications: Current Medications Clopidogrel Bisulfate (Plavix) 75 mg PO DAILY [facility] Last Admin: 03/20/18 09:19 Dose: 75 mg Dextrose (Dextrose 50% Inj) 50 ml IVP ONCE PRN PRN Reason: Hypoglycemia Dextrose (Dextrose 50% Inj) 0 ml IV STAT PRN; Protocol PRN Reason: Hypoglycemia Protocol Dextrose (Glutose 15) 0 gm PO ONCE PRN; Protocol PRN Reason: Hypoglycemia Protocol Enoxaparin Sodium (Lovenox) 40 mg SC DAILY [facility] Last Admin: 03/20/18 09:26 Dose: 40 mg Ergocalciferol (Drisdol 50,000 Intl Units Cap) 1 cap PO QWK [facility] Last Admin: 03/18/18 10:14 Dose: 1 cap Escitalopram Oxalate (Lexapro) 5 mg PO DAILY [facility] Last Admin: 03/20/18 09:18 Dose: 5 mg Famotidine (Pepcid) 40 mg PO DAILY [facility] Last Admin: 03/20/18 09:18 Dose: 40 mg Glucagon (Glucagen Diagnostic Kit) 0 mg IM STAT PRN; Protocol PRN Reason: Hypoglycemia Protocol Ceftriaxone Sodium 1 gm/ (Sodium Chloride) 100 mls @ 100 mls/hr IVPB DAILY [facility] PRN Reason: Protocol Last Admin: 03/20/18 10:00 Dose: Not Given Dextrose (Dextrose 5% In Water 1000 Ml) 1,000 mls @ 0 mls/hr IV .Q0M PRN; Protocol; Per Protocol PRN Reason: Hypoglycemia Protocol Insulin Aspart (Novolog) 0 unit SC ACHS [facility] PRN Reason: Protocol Last Admin: 03/20/18 17:20 Dose: 3 units Lisinopril (Zestril) 2.5 mg PO DAILY [facility] Last Admin: 03/20/18 09:19 Dose: 2.5 mg Metformin HCl (Glucophage) 1,000 mg PO BID [facility] Metoprolol Tartrate (Lopressor) 25 mg PO BID [facility] Last Admin: 03/20/18 17:22 Dose: 25 mg Mirtazapine (Remeron) 45 mg PO DAILY [facility] Last Admin: 03/20/18 09:19 Dose: 45 mg Moxifloxacin HCl (Avelox) 400 mg PO DAILY [facility] PRN Reason: Protocol Stop: 03/24/18 10:01 Last Admin: 03/20/18 09:18 Dose: 400 mg Rosuvastatin Calcium (Crestor) 20 mg PO HS [facility] Last Admin: 03/19/18 21:21 Dose: 20 mg Saccharomyces Boulardii (Florastor) 250 mg PO BID [facility] Last Admin: 03/20/18 17:22 Dose: 250 mg Sitagliptin Phosphate (Januvia) 25 mg PO DAILY [facility] Last Admin: 03/20/18 12:30 Dose: 25 mg - Labs Labs: 03/20/18 10:07 03/20/18 09:42 PT 13.6 SECONDS (9.7-12.2) H 03/19/18 06:19 INR 1.2 03/19/18 06:19 APTT 28 SECONDS (21-34) D 03/19/18 06:19 - Additional Findings Additional findings: - Constitutional Appears: Well, Non-toxic, No Acute Distress - Head Exam Head Exam: NORMAL INSPECTION - Eye Exam Eye Exam: EOMI, Normal appearance - ENT Exam ENT Exam: Mucous Membranes Moist, Normal Exam - Neck Exam Neck Exam: Normal Inspection - Respiratory Exam Respiratory Exam: Clear to Ausculation Bilateral, NORMAL BREATHING PATTERN - Cardiovascular Exam Cardiovascular Exam: Tachycardia, +S1, +S2 - GI/Abdominal Exam GI & Abdominal Exam: Soft, Normal Bowel Sounds - Extremities Exam Extremities Exam: Normal Capillary Refill, Normal Inspection - Back Exam Back Exam: NORMAL INSPECTION - Neurological Exam Neurological Exam: Alert, Awake, Oriented x3 - Psychiatric Exam Psychiatric exam: Normal Affect, Normal Mood - Skin Skin Exam: Dry, Intact, Warm Assessment and Plan - Assessment and Plan (Free Text) Assessment: 57 year old F with past medical history of HTN, diabetes mellitus type 2. Today she is POD1 s/p cardiac cath admitted and consulted by cardiology for chest pain /NSTEMI. Patient found to have elevated BNP with increased inflammatory markers. Patient no longer in ICU and was downgraded to telemetry. Plan: Acute perimyocarditis w/ decompensated heart failure - Dr. Duenas is on case, recommendations appreciated - ESR: 42 CRP: 18 BNP: 53.9 (03/17/18)--> 4870 (03/20/18) - Discontinue: carvedilol - Start metoprolol 25mg bid. Allergy to aspirin - continue lisinopril Chest pain secondary to NSTEMI POD1 status-post cardiac cath - performed by Dr. Duenas. Per report: Non-ischemic cardiomyopathy with normal coronary arteries without occlusion - Per Dr. Duenas recommendation: Continue plavix. - Stopped: brilinta - Stopped: therapeutic lovenox. - Admitted to ICU, currently downgraded to telemetry. - Abnormal EKG with elevated troponins on admission - Echocardiogram revealed reduced ejection fraction - Patient is allergic to aspirin * Continue Coreg 3.125mg PO BID * Lisinopril 2.5mg PO daily * ALEXIA: 3 13% risk at 14 days of all cause mortality, new or recurrent DC or sevre recurrent ischemia requiring urgent revascularization - Chest xray (03/17/18): no acute findings; left basilar atelectasis - CT Angio (03/18/18): mild interlobular septal thickening with parchy ground glass opacities/atectasis seen in lower lobes. No evidence of acute central embolus. Findings consistent with pulmonary edema/CHF Hypertension, controlled - Medications per above - Monitor Diabetes Mellitus, Type 2 - Hemoglobin A1c: 9.7 - Increase metformin to 1000mg BID - Continue sitagliptin - Lisinopril 2.5mg PO Daily, for renal protection Hyperlipidemia - Continue rosuvastatin 20mg PO Daily - Lipid panel: 122, chol: 169, LDL: 85, HDL: 53 Bipolar disorder - Upon discharge, will provide Rx for home-meds as confirmed by pharmacy on ([facility]: [phone]) * Alprazolam 0.5mg BID * lexapro 20mg PO daily * Mirtazapine 45 once at bedtime * Depakote ER 500mg TID * Risperidone 4mg once at bedtime DVT/GIppx: Lovenox/Famotidine Patient seen and case discussed with Dr. Balta Cruz PGY1 <Tyra Gifford V - Last Filed: 03/21/18 07:37> Objective - Vital Signs/Intake and Output Vital Signs (last 24 hours): Temp Pulse Resp BP Pulse Ox 99.1 F 102 H 20 140/81 98 03/20/18 23:05 03/21/18 01:00 03/20/18 23:05 03/20/18 23:05 03/20/18 23:05 Intake and Output: 03/21/18 03/21/18 06:59 18:59 Intake Total 250 Balance 250 - Medications Medications: Current Medications Alprazolam (Xanax) 0.5 mg PO BID PRN PRN Reason: Anxiety Clopidogrel Bisulfate (Plavix) 75 mg PO DAILY [facility] Last Admin: 03/20/18 09:19 Dose: 75 mg Dextrose (Dextrose 50% Inj) 50 ml IVP ONCE PRN PRN Reason: Hypoglycemia Dextrose (Dextrose 50% Inj) 0 ml IV STAT PRN; Protocol PRN Reason: Hypoglycemia Protocol Dextrose (Glutose 15) 0 gm PO ONCE PRN; Protocol PRN Reason: Hypoglycemia Protocol Divalproex Sodium (Depakote Dr) 500 mg PO TID [facility] Enoxaparin Sodium (Lovenox) 40 mg SC DAILY [facility] Last Admin: 03/20/18 09:26 Dose: 40 mg Ergocalciferol (Drisdol 50,000 Intl Units Cap) 1 cap PO QWK [facility] Last Admin: 03/18/18 10:14 Dose: 1 cap Escitalopram Oxalate (Lexapro) 5 mg PO DAILY [facility] Last Admin: 03/20/18 09:18 Dose: 5 mg Famotidine (Pepcid) 40 mg PO DAILY [facility] Last Admin: 03/20/18 09:18 Dose: 40 mg Glucagon (Glucagen Diagnostic Kit) 0 mg IM STAT PRN; Protocol PRN Reason: Hypoglycemia Protocol Ceftriaxone Sodium 1 gm/ (Sodium Chloride) 100 mls @ 100 mls/hr IVPB DAILY [facility] PRN Reason: Protocol Last Admin: 03/20/18 10:00 Dose: Not Given Dextrose (Dextrose 5% In Water 1000 Ml) 1,000 mls @ 0 mls/hr IV .Q0M PRN; Protocol; Per Protocol PRN Reason: Hypoglycemia Protocol Insulin Aspart (Novolog) 0 unit SC ACHS [facility] PRN Reason: Protocol Last Admin: 03/20/18 21:45 Dose: Not Given Lisinopril (Zestril) 2.5 mg PO DAILY [facility] Last Admin: 03/20/18 09:19 Dose: 2.5 mg Metformin HCl (Glucophage) 1,000 mg PO BID [facility] Metoprolol Tartrate (Lopressor) 25 mg PO BID [facility] Last Admin: 03/20/18 17:22 Dose: 25 mg Mirtazapine (Remeron) 45 mg PO DAILY [facility] Last Admin: 03/20/18 09:19 Dose: 45 mg Moxifloxacin HCl (Avelox) 400 mg PO DAILY [facility] PRN Reason: Protocol Stop: 03/24/18 10:01 Last Admin: 03/20/18 09:18 Dose: 400 mg Rosuvastatin Calcium (Crestor) 20 mg PO HS [facility] Last Admin: 03/20/18 22:01 Dose: 20 mg Saccharomyces Boulardii (Florastor) 250 mg PO BID [facility] Last Admin: 03/20/18 17:22 Dose: 250 mg Sitagliptin Phosphate (Januvia) 25 mg PO DAILY [facility] Last Admin: 03/20/18 12:30 Dose: 25 mg - Labs Labs: 03/20/18 10:07 03/20/18 09:42 PT 13.6 SECONDS (9.7-12.2) H 03/19/18 06:19 INR 1.2 03/19/18 06:19 APTT 28 SECONDS (21-34) D 03/19/18 06:19 Assessment and Plan (1) NSTEMI (non-ST elevated myocardial infarction) Status: Acute (2) Chest pain due to CAD Status: Acute (3) Dyslipidemia Status: Chronic (4) HTN (hypertension) Status: Chronic (5) Diabetes mellitus Status: Chronic (6) Bipolar disorder Status: Chronic (7) Prophylactic measure Status: Acute Attending/Attestation - Attestation I have personally seen and examined this patient.: Yes I have fully participated in the care of the patient.: Yes I have reviewed all pertinent clinical information, including history, physical exam and plan: Yes Notes (Text): Assessment and Plan (1) Acute myopericarditis with decompensated CHF Non-ischemic cardiomyopathy NSTEMI (non-ST elevated myocardial infarction) Assessment & Plan: * Admitted to ICU and downgrade to telemetry * Abnormal EKG with elevated troponins on admission * Cardiology (Dr. Duenas) on case-->help appreciated * Per cardiology patient is not stable for discharge. Noted for elevated proBNP in spite of 2 prior normals. We'll switch from choric to Lopressor. Continue to monitor rate. And not start NSAID nor colchicine at this time. * Cardiac cath: normal coronaries * Echocardiogram official report in the chart: Findings include ejection fraction 35-40%. * Patient is allergic to aspirin * Patient reports at bedside has tolerated liquid Aleve in the past. * Cardiology switched from Coreg to metoprolol. * Crestor 20mg POqHS * Lisinopril 2.5mg PO daily * ALEXIA: 3 13% risk at 14 dats of all cause mortality, new or recurrent DC or sevre recurrent ischemia requiring urgent revascularization * Chest xray (03/17/18): no acute findings; left basilar atelectasis * Repeat chest xray today * CT Angio (03/18/18): mild interlobular septal thickening with parchy ground glass opacities/atectasis seen in lower lobes. No evidence of acute central embolus. Findings consistent with pulmonary edema/CHF * Lipid panel: 122, chol: 169, LDL: 85, HDL: 53 * a1c: 9.7 * TSH: 3.34 Free T4: 1.24 * Patient is on Avelox 400 mg once a day for 4 days to cover for pneumonia. Status: Acute (2) Dyslipidemia Assessment & Plan: * Lipid panel: 122, chol: 169, LDL: 85, HDL: 53 * Crestor 20mg POqHS Status: Chronic (3) HTN (hypertension) Assessment & Plan: * Replaced with metoprolol * start Lisinopril 2.5mg Po daily * monitor vital signs * patient is allergic to aspirin Status: Chronic (4) Diabetes mellitus Assessment & Plan: * Lipid panel: 122, chol: 169, LDL: 85, HDL: 53 * a1c: 9.7 * TSH: 3.34 Free T4: 1.24 * start lisinopril 2.5mg Po daily * patient is allergic to aspirin * Increase metformin 2000 mg by mouth twice a day * Januvia 25 mg once a day Status: Chronic (6) Bipolar disorder Assessment & Plan: * patient does not remember all her medications * I have resume patient's Depakote, Xanax, Lexapro, gabapentin Status: Chronic (7) Prophylactic measure Assessment & Plan: * Lovenox 40mg subsqdaily Status: Acute I did have extensive conversation with patient at bedside multiple times today. Patient was very insistent that she wanted to leave the hospital today. Gait patient and boyfriend at bedside that cardiology has deemed the patient is not stable for discharge given her elevated proBNP which basically 5 she is not recovered yet from her initial complaint chest pain. She is very preoccupied that she does not like being stuck with needles however she does report understanding to determine if she is improving from treatment and we do need to check her blood work. I did meet with patient prior to them and my shift. She reports she is in better spirits as she is being transferred to the sixth floor for telemetry monitoring. And reports that she will be amenable to repeating blood work in the morning. We will continue to monitor. When cardiology has deemed patient stable for discharge and patient will ultimately go home.
--- NOTE | 2018-03-21 07:10 | CP.PCM.PN ---
<Reza Cruz - Last Filed: 03/21/18 20:22> Subjective - Date & Time of Evaluation Date of Evaluation: 03/21/18 Time of Evaluation: 07:10 - Subjective Subjective: PGY1 Medicine Progress Note for Dr. Gifford Patient seen and examined at bedside this morning and later in the afternoon. No acute complaints or nursing events overnight. Patient has been able to ambulate well and is tolerating diet without any complaints. Patient denies chest pain, palpitations, SOB, headache, diaphoresis, dizziness, nausea/vomiting , constipation, diarrhea. Objective - Vital Signs/Intake and Output Vital Signs (last 24 hours): Temp Pulse Resp BP Pulse Ox 99.1 F 102 H 20 140/81 98 03/20/18 23:05 03/21/18 01:00 03/20/18 23:05 03/20/18 23:05 03/20/18 23:05 Intake and Output: 03/21/18 03/21/18 06:59 18:59 Intake Total 250 Balance 250 - Medications Medications: Current Medications Alprazolam (Xanax) 0.5 mg PO BID PRN PRN Reason: Anxiety Clopidogrel Bisulfate (Plavix) 75 mg PO DAILY [facility] Last Admin: 03/20/18 09:19 Dose: 75 mg Dextrose (Dextrose 50% Inj) 50 ml IVP ONCE PRN PRN Reason: Hypoglycemia Dextrose (Dextrose 50% Inj) 0 ml IV STAT PRN; Protocol PRN Reason: Hypoglycemia Protocol Dextrose (Glutose 15) 0 gm PO ONCE PRN; Protocol PRN Reason: Hypoglycemia Protocol Divalproex Sodium (Depakote Dr) 500 mg PO TID [facility] Enoxaparin Sodium (Lovenox) 40 mg SC DAILY [facility] Last Admin: 03/20/18 09:26 Dose: 40 mg Ergocalciferol (Drisdol 50,000 Intl Units Cap) 1 cap PO QWK [facility] Last Admin: 03/18/18 10:14 Dose: 1 cap Escitalopram Oxalate (Lexapro) 5 mg PO DAILY [facility] Last Admin: 03/20/18 09:18 Dose: 5 mg Famotidine (Pepcid) 40 mg PO DAILY [facility] Last Admin: 03/20/18 09:18 Dose: 40 mg Glucagon (Glucagen Diagnostic Kit) 0 mg IM STAT PRN; Protocol PRN Reason: Hypoglycemia Protocol Ceftriaxone Sodium 1 gm/ (Sodium Chloride) 100 mls @ 100 mls/hr IVPB DAILY [facility] PRN Reason: Protocol Last Admin: 03/20/18 10:00 Dose: Not Given Dextrose (Dextrose 5% In Water 1000 Ml) 1,000 mls @ 0 mls/hr IV .Q0M PRN; Protocol; Per Protocol PRN Reason: Hypoglycemia Protocol Insulin Aspart (Novolog) 0 unit SC ACHS [facility] PRN Reason: Protocol Last Admin: 03/20/18 21:45 Dose: Not Given Lisinopril (Zestril) 2.5 mg PO DAILY [facility] Last Admin: 03/20/18 09:19 Dose: 2.5 mg Metformin HCl (Glucophage) 1,000 mg PO BID [facility] Metoprolol Tartrate (Lopressor) 25 mg PO BID [facility] Last Admin: 03/20/18 17:22 Dose: 25 mg Mirtazapine (Remeron) 45 mg PO DAILY [facility] Last Admin: 03/20/18 09:19 Dose: 45 mg Moxifloxacin HCl (Avelox) 400 mg PO DAILY [facility] PRN Reason: Protocol Stop: 03/24/18 10:01 Last Admin: 03/20/18 09:18 Dose: 400 mg Rosuvastatin Calcium (Crestor) 20 mg PO HS [facility] Last Admin: 03/20/18 22:01 Dose: 20 mg Saccharomyces Boulardii (Florastor) 250 mg PO BID [facility] Last Admin: 03/20/18 17:22 Dose: 250 mg Sitagliptin Phosphate (Januvia) 25 mg PO DAILY [facility] Last Admin: 03/20/18 12:30 Dose: 25 mg - Labs Labs: 03/20/18 10:07 03/20/18 09:42 PT 13.6 SECONDS (9.7-12.2) H 03/19/18 06:19 INR 1.2 03/19/18 06:19 APTT 28 SECONDS (21-34) D 03/19/18 06:19 - Additional Findings Additional findings: - Constitutional Appears: Well, Non-toxic, No Acute Distress - Head Exam Head Exam: NORMAL INSPECTION - Eye Exam Eye Exam: EOMI, Normal appearance - ENT Exam ENT Exam: Mucous Membranes Moist, Normal Exam - Neck Exam Neck Exam: Normal Inspection - Respiratory Exam Respiratory Exam: Clear to Ausculation Bilateral, NORMAL BREATHING PATTERN - Cardiovascular Exam Cardiovascular Exam: Tachycardia during exam and as seen on court monitor, + S1, +S2 - GI/Abdominal Exam GI & Abdominal Exam: Soft, Normal Bowel Sounds - Extremities Exam Extremities Exam: Normal Capillary Refill, Normal Inspection - Back Exam Back Exam: NORMAL INSPECTION - Neurological Exam Neurological Exam: Alert, Awake, Oriented x3 - Psychiatric Exam Psychiatric exam: Normal Affect, Normal Mood - Skin Skin Exam: Dry, Intact, Warm Assessment and Plan - Assessment and Plan (Free Text) Assessment: 57 year old F with past medical history of HTN, DMT2. Today she is POD2 s/p cardiac cath admitted and consulted by cardiology for chest pain/NSTEMI. Patient found to have non-ischemic cardiomyopathy secondary to acute perimyocarditis. Patient has acutely elevated BNP with increased inflammatory markers. Patient is currently monitored on telemetry. Plan: Acute perimyocarditis with decompensated heart failure - Dr. Duenas is on case, recommendations appreciated * JSL=6815 (from 4870) * ESR=40 (down from 42) * CRP=27 ( up from 18) * Repeat BNP, ESR, CRP tomorrow AM - Discontinued: Carvedilol - Increased Lopressor from 25mg PO BID --> Lopressor 50mg PO BID * Patient has allergy to aspirin - continue lisinopril 2.5mg PO daily Chest pain secondary to NSTEMI POD2 status-post cardiac cath - Performed by Dr. Duenas. Per report: Non-ischemic cardiomyopathy with normal coronary arteries without occlusion - Per Dr. Duenas recommendation: Continue plavix. - Stopped: brilinta - Stopped: therapeutic lovenox. - Abnormal EKG with elevated troponins on admission - Echocardiogram revealed reduced ejection fraction - Patient is allergic to aspirin * Continue Coreg 3.125mg PO BID * Lisinopril 2.5mg PO daily * ALEXIA: 3 13% risk at 14 days of all cause mortality, new or recurrent FL or sevre recurrent ischemia requiring urgent revascularization - Chest xray (03/17/18): no acute findings; left basilar atelectasis - CT Angio (03/18/18): mild interlobular septal thickening with parchy ground glass opacities/atectasis seen in lower lobes. No evidence of acute central embolus. Findings consistent with pulmonary edema/CHF Hypertension, controlled - Medications per above - Monitor Diabetes Mellitus, Type 2 - Hemoglobin A1c: 9.7 - Increase metformin to 1000mg BID - Continue sitagliptin - Lisinopril 2.5mg PO Daily, for renal protection Hyperlipidemia - Continue rosuvastatin 20mg PO Daily - Lipid panel: 122, chol: 169, LDL: 85, HDL: 53 Bipolar disorder - Patient started on the following home-meds, as confirmed by pharmacy on 03/20 ( [facility]: [phone]) * Alprazolam 0.5mg BID * lexapro 20mg PO daily * Mirtazapine 45 once at bedtime * Depakote ER 500mg TID - Medications held: Risperidone 4mg once at bedtime DVT/GIppx: Lovenox/Famotidine Patient seen and case discussed with Dr. Balta Cruz PGY1 <Tyra Gifford V - Last Filed: 03/22/18 09:43> Objective - Vital Signs/Intake and Output Vital Signs (last 24 hours): Temp Pulse Resp BP Pulse Ox 98.3 F 86 20 106/61 96 03/22/18 07:07 03/22/18 07:38 03/22/18 07:07 03/22/18 07:07 03/22/18 07:07 - Medications Medications: Current Medications Alprazolam (Xanax) 0.5 mg PO BID PRN PRN Reason: Anxiety Clopidogrel Bisulfate (Plavix) 75 mg PO DAILY [facility] Last Admin: 03/21/18 09:47 Dose: 75 mg Dextrose (Dextrose 50% Inj) 50 ml IVP ONCE PRN PRN Reason: Hypoglycemia Dextrose (Dextrose 50% Inj) 0 ml IV STAT PRN; Protocol PRN Reason: Hypoglycemia Protocol Dextrose (Glutose 15) 0 gm PO ONCE PRN; Protocol PRN Reason: Hypoglycemia Protocol Divalproex Sodium (Depakote Dr) 500 mg PO TID [facility] Last Admin: 03/21/18 18:06 Dose: 500 mg Enoxaparin Sodium (Lovenox) 40 mg SC DAILY [facility] Last Admin: 03/21/18 10:03 Dose: 40 mg Ergocalciferol (Drisdol 50,000 Intl Units Cap) 1 cap PO QWK [facility] Last Admin: 03/18/18 10:14 Dose: 1 cap Escitalopram Oxalate (Lexapro) 5 mg PO DAILY [facility] Last Admin: 03/21/18 09:42 Dose: 5 mg Famotidine (Pepcid) 40 mg PO DAILY [facility] Last Admin: 03/21/18 09:42 Dose: 40 mg Glucagon (Glucagen Diagnostic Kit) 0 mg IM STAT PRN; Protocol PRN Reason: Hypoglycemia Protocol Ceftriaxone Sodium 1 gm/ (Sodium Chloride) 100 mls @ 100 mls/hr IVPB DAILY [facility] PRN Reason: Protocol Last Admin: 03/21/18 10:03 Dose: Not Given Dextrose (Dextrose 5% In Water 1000 Ml) 1,000 mls @ 0 mls/hr IV .Q0M PRN; Protocol; Per Protocol PRN Reason: Hypoglycemia Protocol Insulin Aspart (Novolog) 0 unit SC ACHS [facility] PRN Reason: Protocol Last Admin: 03/22/18 08:02 Dose: 3 units Lisinopril (Zestril) 2.5 mg PO DAILY [facility] Last Admin: 03/21/18 09:58 Dose: 2.5 mg Metformin HCl (Glucophage) 1,000 mg PO BID [facility] Last Admin: 03/21/18 18:06 Dose: 1,000 mg Metoprolol Tartrate (Lopressor) 50 mg PO BID [facility] Last Admin: 03/21/18 18:07 Dose: 50 mg Mirtazapine (Remeron) 45 mg PO DAILY [facility] Last Admin: 03/21/18 09:41 Dose: 45 mg Rosuvastatin Calcium (Crestor) 20 mg PO HS [facility] Last Admin: 03/21/18 22:42 Dose: 20 mg Saccharomyces Boulardii (Florastor) 250 mg PO BID [facility] Last Admin: 03/21/18 18:06 Dose: 250 mg Sitagliptin Phosphate (Januvia) 25 mg PO DAILY [facility] Last Admin: 03/21/18 09:42 Dose: 25 mg - Labs Labs: 03/21/18 08:09 03/21/18 08:09 PT 13.6 SECONDS (9.7-12.2) H 03/19/18 06:19 INR 1.2 03/19/18 06:19 APTT 28 SECONDS (21-34) D 03/19/18 06:19 Assessment and Plan (1) NSTEMI (non-ST elevated myocardial infarction) Status: Acute (2) Chest pain due to CAD Status: Acute (3) Dyslipidemia Status: Chronic (4) HTN (hypertension) Status: Chronic (5) Diabetes mellitus Status: Chronic (6) Bipolar disorder Status: Chronic (7) Prophylactic measure Status: Acute Attending/Attestation - Attestation I have personally seen and examined this patient.: Yes I have fully participated in the care of the patient.: Yes I have reviewed all pertinent clinical information, including history, physical exam and plan: Yes Notes (Text): This is a late computer entry for 03/21/2018. Patient seen and examined case discussed with medical typist. Patient seen at bedside with her daughter, brother and [id number].. Patient does permit me to speak about her medical information prior her family members. She denies acute complaints she reports that she is feeling okay. Patient on telemetry is tachycardic. Patient's proBNP is elevated trending from yesterday. Discussed with cardiology will increased beta graham to help control the rate and monitor proBNP and ESR. Patient is understanding and understands that until cardiology has been her stable for discharge to not be ready to leave yet. Assessment and Plan (1) Acute myopericarditis with decompensated CHF Non-ischemic cardiomyopathy NSTEMI (non-ST elevated myocardial infarction) Assessment & Plan: * Admitted to ICU and downgrade to telemetry * Abnormal EKG with elevated troponins on admission * Cardiology (Dr. Duenas) on case-->help appreciated * Per cardiology patient is not stable for discharge. Noted for elevated proBNP in spite of 2 prior normals. We'll switch from choric to Lopressor. Continue to monitor rate. And not start NSAID nor colchicine at this time. * Cardiac cath: normal coronaries * Echocardiogram official report in the chart: Findings include ejection fraction 35-40%. * Patient is allergic to aspirin * Patient reports at bedside has tolerated liquid Aleve in the past. * Lopressor 50 milligram by mouth twice a day * Crestor 20mg POqHS * Lisinopril 2.5mg PO daily * ALEXIA: 3 13% risk at 14 dats of all cause mortality, new or recurrent FL or sevre recurrent ischemia requiring urgent revascularization * Chest xray (03/17/18): no acute findings; left basilar atelectasis * Repeat chest xray today * CT Angio (03/18/18): mild interlobular septal thickening with parchy ground glass opacities/atectasis seen in lower lobes. No evidence of acute central embolus. Findings consistent with pulmonary edema/CHF * Lipid panel: 122, chol: 169, LDL: 85, HDL: 53 * a1c: 9.7 * TSH: 3.34 Free T4: 1.24 * Patient is on Avelox 400 mg once a day for 4 days to cover for pneumonia. Status: Acute (2) Dyslipidemia Assessment & Plan: * Lipid panel: 122, chol: 169, LDL: 85, HDL: 53 * Crestor 20mg POqHS Status: Chronic (3) HTN (hypertension) Assessment & Plan: * Replaced with metoprolol * start Lisinopril 2.5mg Po daily * monitor vital signs * patient is allergic to aspirin Status: Chronic (4) Diabetes mellitus Assessment & Plan: * Lipid panel: 122, chol: 169, LDL: 85, HDL: 53 * a1c: 9.7 * TSH: 3.34 Free T4: 1.24 * start lisinopril 2.5mg Po daily * patient is allergic to aspirin * Increase metformin 2000 mg by mouth twice a day * Januvia 25 mg once a day Status: Chronic (6) Bipolar disorder Assessment & Plan: * patient does not remember all her medications * I have resume patient's Depakote, Xanax, Lexapro, gabapentin Status: Chronic (7) Prophylactic measure Assessment & Plan: * Lovenox 40mg subsqdaily Status: Acute Disposition: ProBNP is elevated and patient is tachycardic. We will need to rate control. I have increased to Lopressor 50 mg by mouth twice a day upon discussion with spice cleaner.
[2018-03-21 08:24] LABS: BASO % 0.2 % (0.0-2.0); EOS % 0.1 % (0.0-4.0); HEMOGLOBIN 10.5 g/dL (11.0-16.0); LYMPH # 3.2 K/uL (1.0-4.3); LYMPH % 18.5 % (20.0-40.0); MEAN CELL VOLUME 83.6 fL (81.0-99.0); MEAN CORPUSCULAR HEMOGLOBIN 27.6 pg (27.0-31.0); MEAN CORPUSCULAR HGB CONC 33.1 g/dL (33.0-37.0); MEAN PLATELET VOLUME 8.9 fL (7.2-11.7); MONO # 1.2 K/uL (0.0-0.8); MONO % 7.1 % (0.0-10.0); NEUT # 12.8 K/uL (1.8-7.0); NEUT % 74.1 % (50.0-75.0); RBC 3.8 Mil/uL (3.80-5.20); RED CELL DISTRIBUTION WIDTH 13.2 % (11.5-14.5); WHITE BLOOD COUNT 17.3 K/uL (4.8-10.8)
[2018-03-21] MEDS: (Novolog) Insulin Aspart, Recombinant 100 u/ml 10 ml vial SC SCH ×4 (08:39→21:22)
[2018-03-21 08:48] LABS: B-TYPE NATRIURETIC PEPTIDE 8230 pg/mL (0-900)
[2018-03-21 08:56] LABS: ALB/GLOB RATIO 1.2 (1.0-2.1); ALBUMIN 3.4 g/dL (3.5-5.0); ALT/SGPT 27 U/L (9-52); AST/SGOT 24 U/L (14-36); BLOOD UREA NITROGEN 14 mg/dL (7-17); CALCIUM 8.3 mg/dl (8.6-10.4); GFR NON-AFRICAN AMERICAN > 60
--- NOTE | 2018-03-21 08:57 | CP.PCM.PN ---
<Garrett Naik - Last Filed: 03/21/18 15:00> Subjective - Date & Time of Evaluation Date of Evaluation: 03/21/18 Time of Evaluation: 08:54 - Subjective Subjective: CARDIOLOGY PROGRESS NOTE FOR DR. SUKHJINDER Naik D.O. PGY-1 Pt seen and examined at bedside this am. No acute complaints or nursing events overnight. Pt transferred from ICU to telemetry after elevated BNP and ESR/CRP were noted s/p cardiac cath procedure. She is ambulating well and tolerating diet. She denies fevers, chills, weakness, headache, dizziness, chest pain, shortness of breath, diophoresis, nausea, vomiting, constipation, diarrhea, dysuria. Objective - Vital Signs/Intake and Output Vital Signs (last 24 hours): Temp Pulse Resp BP Pulse Ox 98.7 F 111 H 18 142/78 96 03/21/18 07:15 03/21/18 07:15 03/21/18 07:15 03/21/18 07:15 03/21/18 07:15 Intake and Output: 03/21/18 03/21/18 06:59 18:59 Intake Total 250 Balance 250 - Medications Medications: Current Medications Alprazolam (Xanax) 0.5 mg PO BID PRN PRN Reason: Anxiety Clopidogrel Bisulfate (Plavix) 75 mg PO DAILY [facility] Last Admin: 03/20/18 09:19 Dose: 75 mg Dextrose (Dextrose 50% Inj) 50 ml IVP ONCE PRN PRN Reason: Hypoglycemia Dextrose (Dextrose 50% Inj) 0 ml IV STAT PRN; Protocol PRN Reason: Hypoglycemia Protocol Dextrose (Glutose 15) 0 gm PO ONCE PRN; Protocol PRN Reason: Hypoglycemia Protocol Divalproex Sodium (Depakote Dr) 500 mg PO TID [facility] Enoxaparin Sodium (Lovenox) 40 mg SC DAILY [facility] Last Admin: 03/20/18 09:26 Dose: 40 mg Ergocalciferol (Drisdol 50,000 Intl Units Cap) 1 cap PO QWK [facility] Last Admin: 03/18/18 10:14 Dose: 1 cap Escitalopram Oxalate (Lexapro) 5 mg PO DAILY [facility] Last Admin: 03/20/18 09:18 Dose: 5 mg Famotidine (Pepcid) 40 mg PO DAILY [facility] Last Admin: 03/20/18 09:18 Dose: 40 mg Glucagon (Glucagen Diagnostic Kit) 0 mg IM STAT PRN; Protocol PRN Reason: Hypoglycemia Protocol Ceftriaxone Sodium 1 gm/ (Sodium Chloride) 100 mls @ 100 mls/hr IVPB DAILY [facility] PRN Reason: Protocol Last Admin: 03/20/18 10:00 Dose: Not Given Dextrose (Dextrose 5% In Water 1000 Ml) 1,000 mls @ 0 mls/hr IV .Q0M PRN; Protocol; Per Protocol PRN Reason: Hypoglycemia Protocol Insulin Aspart (Novolog) 0 unit SC ACHS [facility] PRN Reason: Protocol Last Admin: 03/21/18 08:39 Dose: 3 units Lisinopril (Zestril) 2.5 mg PO DAILY [facility] Last Admin: 03/20/18 09:19 Dose: 2.5 mg Metformin HCl (Glucophage) 1,000 mg PO BID [facility] Metoprolol Tartrate (Lopressor) 25 mg PO BID [facility] Last Admin: 03/20/18 17:22 Dose: 25 mg Mirtazapine (Remeron) 45 mg PO DAILY [facility] Last Admin: 03/20/18 09:19 Dose: 45 mg Moxifloxacin HCl (Avelox) 400 mg PO DAILY [facility] PRN Reason: Protocol Stop: 03/24/18 10:01 Last Admin: 03/20/18 09:18 Dose: 400 mg Rosuvastatin Calcium (Crestor) 20 mg PO HS [facility] Last Admin: 03/20/18 22:01 Dose: 20 mg Saccharomyces Boulardii (Florastor) 250 mg PO BID [facility] Last Admin: 03/20/18 17:22 Dose: 250 mg Sitagliptin Phosphate (Januvia) 25 mg PO DAILY [facility] Last Admin: 03/20/18 12:30 Dose: 25 mg - Labs Labs: 03/21/18 08:09 PT 13.6 SECONDS (9.7-12.2) H 03/19/18 06:19 INR 1.2 03/19/18 06:19 APTT 28 SECONDS (21-34) D 03/19/18 06:19 - Constitutional Appears: Well, Non-toxic, No Acute Distress - Head Exam Head Exam: NORMAL INSPECTION, NORMOCEPHALIC - Eye Exam Eye Exam: EOMI, Normal appearance - ENT Exam ENT Exam: Mucous Membranes Moist, Normal Exam - Neck Exam Neck Exam: Normal Inspection - Respiratory Exam Respiratory Exam: Clear to Ausculation Bilateral, NORMAL BREATHING PATTERN - Cardiovascular Exam Cardiovascular Exam: Tachycardia, +S1, +S2 - GI/Abdominal Exam GI & Abdominal Exam: Soft. absent: Tenderness - Extremities Exam Extremities Exam: Normal Inspection. absent: Tenderness - Back Exam Back Exam: NORMAL INSPECTION - Neurological Exam Neurological Exam: Alert, Awake, Oriented x3 - Psychiatric Exam Psychiatric exam: Normal Affect, Normal Mood - Skin Skin Exam: Dry, Intact, Warm Assessment and Plan - Assessment and Plan (Free Text) Assessment: 57 y/o F with pmhx/ HTN, DM POD1 s/p cardiac cath admitted and consulted by cardiology for chest pain/NSTEMI. Pt found to have elevated BNP with increased inflammatory markers Plan: Acute perimyocarditis w/ decompensated heart failure ESR: 42, 40 CRP: 18, 27.7 BNP: 53.9 (03/17/18)--> 4870 (03/20/18)--> 8230(03/21/18) increase metoprolol 25mg bid to metoprolol 50mg bid. Avoid aspirin due to allergy continue lisinopril NSTEMI POD2 s/p cardiac cath Non-ischemic cardiomyopathy. Normal coronary arteries without occlusion Continue plavix, D/c brilinta & therapeutic lovenox. ambulate as tolerated HTN start metoprolol 25mg bid continue lisinopril DM2 continue metformin continue sitagliptin HLD continue rosuvastatin DVT/GIppx: Lovenox/Famotidine Case seen, examined and discussed with attending physician, Dr. Duenas <Jose Duenas - Last Filed: 03/21/18 15:35> Objective - Vital Signs/Intake and Output Vital Signs (last 24 hours): Temp Pulse Resp BP Pulse Ox 98.7 F 111 H 18 105/66 96 03/21/18 07:15 03/21/18 07:15 03/21/18 07:15 03/21/18 12:04 03/21/18 07:15 Intake and Output: 03/21/18 03/21/18 06:59 18:59 Intake Total 250 Balance 250 - Medications Medications: Current Medications Alprazolam (Xanax) 0.5 mg PO BID PRN PRN Reason: Anxiety Clopidogrel Bisulfate (Plavix) 75 mg PO DAILY [facility] Last Admin: 03/21/18 09:47 Dose: 75 mg Dextrose (Dextrose 50% Inj) 50 ml IVP ONCE PRN PRN Reason: Hypoglycemia Dextrose (Dextrose 50% Inj) 0 ml IV STAT PRN; Protocol PRN Reason: Hypoglycemia Protocol Dextrose (Glutose 15) 0 gm PO ONCE PRN; Protocol PRN Reason: Hypoglycemia Protocol Divalproex Sodium (Depakote Dr) 500 mg PO TID [facility] Last Admin: 03/21/18 14:01 Dose: 500 mg Enoxaparin Sodium (Lovenox) 40 mg SC DAILY [facility] Last Admin: 03/21/18 10:03 Dose: 40 mg Ergocalciferol (Drisdol 50,000 Intl Units Cap) 1 cap PO QWK [facility] Last Admin: 03/18/18 10:14 Dose: 1 cap Escitalopram Oxalate (Lexapro) 5 mg PO DAILY [facility] Last Admin: 03/21/18 09:42 Dose: 5 mg Famotidine (Pepcid) 40 mg PO DAILY [facility] Last Admin: 03/21/18 09:42 Dose: 40 mg Glucagon (Glucagen Diagnostic Kit) 0 mg IM STAT PRN; Protocol PRN Reason: Hypoglycemia Protocol Ceftriaxone Sodium 1 gm/ (Sodium Chloride) 100 mls @ 100 mls/hr IVPB DAILY [facility] PRN Reason: Protocol Last Admin: 03/21/18 10:03 Dose: Not Given Dextrose (Dextrose 5% In Water 1000 Ml) 1,000 mls @ 0 mls/hr IV .Q0M PRN; Protocol; Per Protocol PRN Reason: Hypoglycemia Protocol Insulin Aspart (Novolog) 0 unit SC ACHS [facility] PRN Reason: Protocol Last Admin: 03/21/18 12:13 Dose: 6 units Lisinopril (Zestril) 2.5 mg PO DAILY [facility] Last Admin: 03/21/18 09:58 Dose: 2.5 mg Metformin HCl (Glucophage) 1,000 mg PO BID [facility] Last Admin: 03/21/18 09:48 Dose: 1,000 mg Metoprolol Tartrate (Lopressor) 50 mg PO BID [facility] Mirtazapine (Remeron) 45 mg PO DAILY [facility] Last Admin: 03/21/18 09:41 Dose: 45 mg Rosuvastatin Calcium (Crestor) 20 mg PO HS [facility] Last Admin: 03/20/18 22:01 Dose: 20 mg Saccharomyces Boulardii (Florastor) 250 mg PO BID [facility] Last Admin: 03/21/18 09:41 Dose: 250 mg Sitagliptin Phosphate (Januvia) 25 mg PO DAILY [facility] Last Admin: 03/21/18 09:42 Dose: 25 mg - Labs Labs: 03/21/18 08:09 03/21/18 08:09 PT 13.6 SECONDS (9.7-12.2) H 03/19/18 06:19 INR 1.2 03/19/18 06:19 APTT 28 SECONDS (21-34) D 03/19/18 06:19 Assessment and Plan (1) NSTEMI (non-ST elevated myocardial infarction) Status: Acute (2) Chest pain due to CAD Status: Acute (3) HTN (hypertension) Status: Chronic (4) Tachyarrhythmia Status: Acute (5) Dyslipidemia Status: Chronic Attending/Attestation - Attestation I have personally seen and examined this patient.: Yes I have fully participated in the care of the patient.: Yes I have reviewed all pertinent clinical information, including history, physical exam and plan: Yes Notes (Text): 03/21/18 15:34 S3 gallop on exam euvolemic increase BB as BP tolerates metabolic acidosis - etiology ? unclear will need to clear acidosis and decompensated CHF prior to discharge
[2018-03-21] MEDS: Saccharomyces Boulardi 250 mg Cap PO SCH ×2 (09:41→18:06)
[2018-03-21] MEDS: Divalproex 500 mg DR Tab PO SCH ×3 (09:45→18:06)
[2018-03-21] MEDS: Enoxaparin 40 mg Syringe SC SCH (10:03)
[2018-03-21 16:24] VITALS: RESP 20
--- NOTE | 2018-03-22 07:06 | CP.PCM.PN ---
<Reza Cruz - Last Filed: 03/22/18 21:03> Subjective - Date & Time of Evaluation Date of Evaluation: 03/22/18 Time of Evaluation: 07:05 - Subjective Subjective: PGY1 Medicine Progress Note for Dr. Gifford Patient seen and examined at bedside this morning. No acute complaints or nursing events overnight. Patient has been able to ambulate well and is tolerating diet without any complaints. Patient denies chest pain, palpitations , SOB, headache, diaphoresis, dizziness, nausea/vomiting, constipation, diarrhea. Objective - Vital Signs/Intake and Output Vital Signs (last 24 hours): Temp Pulse Resp BP Pulse Ox 98.4 F 76 20 105/63 94 L 03/22/18 00:00 03/22/18 04:00 03/22/18 00:00 03/22/18 00:00 03/22/18 00:00 - Medications Medications: Current Medications Alprazolam (Xanax) 0.5 mg PO BID PRN PRN Reason: Anxiety Clopidogrel Bisulfate (Plavix) 75 mg PO DAILY [facility] Last Admin: 03/21/18 09:47 Dose: 75 mg Dextrose (Dextrose 50% Inj) 50 ml IVP ONCE PRN PRN Reason: Hypoglycemia Dextrose (Dextrose 50% Inj) 0 ml IV STAT PRN; Protocol PRN Reason: Hypoglycemia Protocol Dextrose (Glutose 15) 0 gm PO ONCE PRN; Protocol PRN Reason: Hypoglycemia Protocol Divalproex Sodium (Depakote Dr) 500 mg PO TID [facility] Last Admin: 03/21/18 18:06 Dose: 500 mg Enoxaparin Sodium (Lovenox) 40 mg SC DAILY [facility] Last Admin: 03/21/18 10:03 Dose: 40 mg Ergocalciferol (Drisdol 50,000 Intl Units Cap) 1 cap PO QWK [facility] Last Admin: 03/18/18 10:14 Dose: 1 cap Escitalopram Oxalate (Lexapro) 5 mg PO DAILY [facility] Last Admin: 03/21/18 09:42 Dose: 5 mg Famotidine (Pepcid) 40 mg PO DAILY [facility] Last Admin: 03/21/18 09:42 Dose: 40 mg Glucagon (Glucagen Diagnostic Kit) 0 mg IM STAT PRN; Protocol PRN Reason: Hypoglycemia Protocol Ceftriaxone Sodium 1 gm/ (Sodium Chloride) 100 mls @ 100 mls/hr IVPB DAILY [facility] PRN Reason: Protocol Last Admin: 03/21/18 10:03 Dose: Not Given Dextrose (Dextrose 5% In Water 1000 Ml) 1,000 mls @ 0 mls/hr IV .Q0M PRN; Protocol; Per Protocol PRN Reason: Hypoglycemia Protocol Insulin Aspart (Novolog) 0 unit SC ACHS [facility] PRN Reason: Protocol Last Admin: 03/21/18 21:22 Dose: Not Given Lisinopril (Zestril) 2.5 mg PO DAILY [facility] Last Admin: 03/21/18 09:58 Dose: 2.5 mg Metformin HCl (Glucophage) 1,000 mg PO BID [facility] Last Admin: 03/21/18 18:06 Dose: 1,000 mg Metoprolol Tartrate (Lopressor) 50 mg PO BID [facility] Last Admin: 03/21/18 18:07 Dose: 50 mg Mirtazapine (Remeron) 45 mg PO DAILY [facility] Last Admin: 03/21/18 09:41 Dose: 45 mg Rosuvastatin Calcium (Crestor) 20 mg PO HS [facility] Last Admin: 03/21/18 22:42 Dose: 20 mg Saccharomyces Boulardii (Florastor) 250 mg PO BID [facility] Last Admin: 03/21/18 18:06 Dose: 250 mg Sitagliptin Phosphate (Januvia) 25 mg PO DAILY [facility] Last Admin: 03/21/18 09:42 Dose: 25 mg - Labs Labs: 03/21/18 08:09 03/21/18 08:09 PT 13.6 SECONDS (9.7-12.2) H 03/19/18 06:19 INR 1.2 03/19/18 06:19 APTT 28 SECONDS (21-34) D 03/19/18 06:19 - Additional Findings Additional findings: - Constitutional Appears: Well, Non-toxic, No Acute Distress - Head Exam Head Exam: NORMAL INSPECTION - Eye Exam Eye Exam: EOMI, Normal appearance - ENT Exam ENT Exam: Mucous Membranes Moist, Normal Exam - Neck Exam Neck Exam: Normal Inspection - Respiratory Exam Respiratory Exam: Clear to Ausculation Bilateral, NORMAL BREATHING PATTERN - Cardiovascular Exam Cardiovascular Exam: Tachycardia during exam and as seen on awake overnight monitor, + S1, +S2 - GI/Abdominal Exam GI & Abdominal Exam: Soft, Normal Bowel Sounds - Extremities Exam Extremities Exam: Normal Capillary Refill, Normal Inspection - Back Exam Back Exam: NORMAL INSPECTION - Neurological Exam Neurological Exam: Alert, Awake, Oriented x3 - Psychiatric Exam Psychiatric exam: Normal Affect, Normal Mood - Skin Skin Exam: Dry, Intact, Warm Assessment and Plan - Assessment and Plan (Free Text) Assessment: 57 year old F with past medical history of HTN, DMT2. Today she is POD3 s/p cardiac cath admitted and consulted by cardiology for chest pain/NSTEMI. Patient found to have non-ischemic cardiomyopathy secondary to acute perimyocarditis. Patient has acutely elevated BNP with increased inflammatory markers. BNP is downtrending. Plan: Acute perimyocarditis with decompensated heart failure - Dr. Duenas is on case, recommendations appreciated * PWT=6789 (from 8320) * ESR=40 (from 42) * CRP=40(from 27) * Repeat BNP, ESR, CRP tomorrow AM - Discontinued: Carvedilol - Increased Lopressor from 25mg PO BID --> Lopressor 50mg PO BID * Patient has allergy to aspirin - continue lisinopril 2.5mg PO daily Chest pain secondary to NSTEMI POD2 status-post cardiac cath - Performed by Dr. Duenas. Per report: Non-ischemic cardiomyopathy with normal coronary arteries without occlusion - Per Dr. Duenas recommendation: Continue plavix. * Patient will see Dr. Duenas in 2 weeks, and will be discharge on Plavix, Lopressor, Lisinopril, and Statin as ordered. - Stopped: brilinta - Stopped: therapeutic lovenox. - Abnormal EKG with elevated troponins on admission - Echocardiogram revealed reduced ejection fraction - Patient is allergic to aspirin * Continue Coreg 3.125mg PO BID * Lisinopril 2.5mg PO daily * ALEXIA: 3 13% risk at 14 days of all cause mortality, new or recurrent NM or sevre recurrent ischemia requiring urgent revascularization - Chest xray (03/17/18): no acute findings; left basilar atelectasis - CT Angio (03/18/18): mild interlobular septal thickening with parchy ground glass opacities/atectasis seen in lower lobes. No evidence of acute central embolus. Findings consistent with pulmonary edema/CHF Hypertension, controlled - Medications per above - Monitor Diabetes Mellitus, Type 2 - Hemoglobin A1c: 9.7 - Metformin to 1000mg BID - Continue sitagliptin - Lisinopril 2.5mg PO Daily, for renal protection Hyperlipidemia - Continue rosuvastatin 20mg PO Daily - Lipid panel: 122, chol: 169, LDL: 85, HDL: 53 Bipolar disorder - Patient started on the following home-meds, as confirmed by pharmacy on 03/20 ( [facility]: [phone]) * Alprazolam 0.5mg BID * Lexapro 20mg PO daily * Mirtazapine 45 once at bedtime * Depakote ER 500mg TID - Medications held: Risperidone 4mg once at bedtime DVT/GIppx: Lovenox/Famotidine Patient seen and case discussed with Dr. Balta Cruz PGY1 <Tyra Gifford V - Last Filed: 03/24/18 20:57> Objective - Vital Signs/Intake and Output Vital Signs (last 24 hours): Temp Pulse Resp BP Pulse Ox 98.3 F 86 20 106/61 96 03/22/18 07:07 03/22/18 07:38 03/22/18 07:07 03/22/18 07:07 03/22/18 07:07 - Labs Labs: 03/22/18 07:35 03/22/18 10:06 PT 13.6 SECONDS (9.7-12.2) H 03/19/18 06:19 INR 1.2 03/19/18 06:19 APTT 28 SECONDS (21-34) D 03/19/18 06:19 Assessment and Plan (1) Acute myopericarditis Status: Acute (2) NSTEMI (non-ST elevated myocardial infarction) Status: Acute (3) Dyslipidemia Status: Chronic (4) HTN (hypertension) Status: Chronic (5) Diabetes mellitus Status: Chronic (6) Bipolar disorder Status: Chronic (7) Prophylactic measure Status: Acute Attending/Attestation - Attestation I have personally seen and examined this patient.: Yes I have fully participated in the care of the patient.: Yes I have reviewed all pertinent clinical information, including history, physical exam and plan: Yes Notes (Text): This is a late computer entry for 03/22/2018. Patient seen and examined case discussed with medical director. Patient does permit me to speak about her medical information prior her family members this morning. She denies acute complaints she reports that she is feeling okay. Patient on telemetry is improved. Patient's proBNP has improved. Patient seen by cardiology in afternoon, stable for discharge, and recommend to follow-up outpatient in 2 weeks at his [place] office. Patient medically stable for discharge. Assessment and Plan (1) Acute myopericarditis with decompensated CHF-->Stable Non-ischemic cardiomyopathy-->Stable NSTEMI (non-ST elevated myocardial infarction)-->Stable Assessment & Plan: * Admitted to ICU and downgrade to telemetry * Abnormal EKG with elevated troponins on admission * Cardiology (Dr. Duenas) on case-->help appreciated * Per cardiology patient is not stable for discharge. Noted for elevated proBNP in spite of 2 prior normals. We'll switch from choric to Lopressor. Continue to monitor rate. And not start NSAID nor colchicine at this time. * Cardiac cath: normal coronaries * Echocardiogram official report in the chart: Findings include ejection fraction 35-40%. * Patient is allergic to aspirin * Patient reports at bedside has tolerated liquid Aleve in the past. * Lopressor 50 milligram by mouth twice a day * Crestor 20mg POqHS * Lisinopril 2.5mg PO daily * ALEXIA: 3 13% risk at 14 dats of all cause mortality, new or recurrent NM or sevre recurrent ischemia requiring urgent revascularization * Chest xray (03/17/18): no acute findings; left basilar atelectasis * Repeat chest xray today * CT Angio (03/18/18): mild interlobular septal thickening with parchy ground glass opacities/atectasis seen in lower lobes. No evidence of acute central embolus. Findings consistent with pulmonary edema/CHF * Lipid panel: 122, chol: 169, LDL: 85, HDL: 53 * a1c: 9.7 * TSH: 3.34 Free T4: 1.24 * Patient is on Avelox 400 mg once a day for 4 days to cover for pneumonia. Status: Acute (2) Dyslipidemia-->Chronic Assessment & Plan: * Lipid panel: 122, chol: 169, LDL: 85, HDL: 53 * Crestor 20mg POqHS Status: Chronic (3) HTN (hypertension)-->chronic Assessment & Plan: * Replaced with metoprolol * start Lisinopril 2.5mg Po daily * monitor vital signs * patient is allergic to aspirin Status: Chronic (4) Diabetes mellitus-->chronic Assessment & Plan: * Lipid panel: 122, chol: 169, LDL: 85, HDL: 53 * a1c: 9.7 * TSH: 3.34 Free T4: 1.24 * start lisinopril 2.5mg Po daily * patient is allergic to aspirin * Increase metformin 2000 mg by mouth twice a day * Januvia 25 mg once a day Status: Chronic (6) Bipolar disorder-->chronic Assessment & Plan: * patient does not remember all her medications * I have resume patient's Depakote, Xanax, Lexapro, gabapentin and patient f/u outpatient with her psychiatrist. Status: Chronic (7) Prophylactic measure Assessment & Plan: * Lovenox 40mg subsqdaily Status: Acute
[2018-03-22 07:39] VITALS: PULSE 86
[2018-03-22 07:40] VITALS: BP 106/61; TEMP 98.3; O2SAT 96
[2018-03-22] MEDS: (Novolog) Insulin Aspart, Recombinant 100 u/ml 10 ml vial SC SCH ×3 (08:02→17:15)
[2018-03-22] MEDS: Saccharomyces Boulardi 250 mg Cap PO SCH ×2 (09:46→17:15)
[2018-03-22] MEDS: Divalproex 500 mg DR Tab PO SCH ×3 (09:47→17:15)
[2018-03-22] MEDS: Enoxaparin 40 mg Syringe SC SCH (09:48)
[2018-03-22 10:21] LABS: BASO % 0.3 % (0.0-2.0); EOS # 0.3 K/uL (0.0-0.7); EOS % 2.9 % (0.0-4.0); HEMOGLOBIN 9.8 g/dL (11.0-16.0); LYMPH # 3.5 K/uL (1.0-4.3); MEAN CELL VOLUME 83.3 fL (81.0-99.0); MEAN CORPUSCULAR HEMOGLOBIN 27.5 pg (27.0-31.0); MONO % 9.1 % (0.0-10.0); NEUT # 6.4 K/uL (1.8-7.0); NEUT % 56.7 % (50.0-75.0); RBC 3.57 Mil/uL (3.80-5.20); RED CELL DISTRIBUTION WIDTH 13.1 % (11.5-14.5); WHITE BLOOD COUNT 11.4 K/uL (4.8-10.8)
[2018-03-22 10:55] LABS: ALB/GLOB RATIO 1.2 (1.0-2.1); ALBUMIN 3.1 g/dL (3.5-5.0); ALT/SGPT 28 U/L (9-52); AST/SGOT 27 U/L (14-36); BLOOD UREA NITROGEN 18 mg/dL (7-17); GFR NON-AFRICAN AMERICAN > 60
--- NOTE | 2018-03-22 18:32 | CP.PCM.PN ---
Subjective - Date & Time of Evaluation Date of Evaluation: 03/22/18 Time of Evaluation: 18:29 - Subjective Subjective: stable s3 resolved Objective - Vital Signs/Intake and Output Vital Signs (last 24 hours): Temp Pulse Resp BP Pulse Ox 98.3 F 86 20 106/61 96 03/22/18 07:07 03/22/18 07:38 03/22/18 07:07 03/22/18 07:07 03/22/18 07:07 - Medications Medications: Current Medications Alprazolam (Xanax) 0.5 mg PO BID PRN PRN Reason: Anxiety Clopidogrel Bisulfate (Plavix) 75 mg PO DAILY [facility] Last Admin: 03/22/18 09:47 Dose: 75 mg Dextrose (Dextrose 50% Inj) 50 ml IVP ONCE PRN PRN Reason: Hypoglycemia Dextrose (Dextrose 50% Inj) 0 ml IV STAT PRN; Protocol PRN Reason: Hypoglycemia Protocol Dextrose (Glutose 15) 0 gm PO ONCE PRN; Protocol PRN Reason: Hypoglycemia Protocol Divalproex Sodium (Depakote Dr) 500 mg PO TID [facility] Last Admin: 03/22/18 17:15 Dose: 500 mg Enoxaparin Sodium (Lovenox) 40 mg SC DAILY [facility] Last Admin: 03/22/18 09:48 Dose: 40 mg Ergocalciferol (Drisdol 50,000 Intl Units Cap) 1 cap PO QWK [facility] Last Admin: 03/18/18 10:14 Dose: 1 cap Escitalopram Oxalate (Lexapro) 5 mg PO DAILY [facility] Last Admin: 03/22/18 09:47 Dose: 5 mg Famotidine (Pepcid) 40 mg PO DAILY [facility] Last Admin: 03/22/18 09:47 Dose: 40 mg Glucagon (Glucagen Diagnostic Kit) 0 mg IM STAT PRN; Protocol PRN Reason: Hypoglycemia Protocol Ceftriaxone Sodium 1 gm/ (Sodium Chloride) 100 mls @ 100 mls/hr IVPB DAILY [facility] PRN Reason: Protocol Last Admin: 03/22/18 10:50 Dose: Not Given Dextrose (Dextrose 5% In Water 1000 Ml) 1,000 mls @ 0 mls/hr IV .Q0M PRN; Protocol; Per Protocol PRN Reason: Hypoglycemia Protocol Insulin Aspart (Novolog) 0 unit SC ACHS [facility] PRN Reason: Protocol Last Admin: 03/22/18 17:15 Dose: 2 units Lisinopril (Zestril) 2.5 mg PO DAILY [facility] Last Admin: 03/22/18 09:47 Dose: Not Given Metformin HCl (Glucophage) 1,000 mg PO BID [facility] Last Admin: 03/22/18 17:15 Dose: 1,000 mg Metoprolol Tartrate (Lopressor) 50 mg PO BID [facility] Last Admin: 03/22/18 17:16 Dose: 50 mg Mirtazapine (Remeron) 45 mg PO DAILY [facility] Last Admin: 03/22/18 09:46 Dose: 45 mg Rosuvastatin Calcium (Crestor) 20 mg PO HS [facility] Last Admin: 03/21/18 22:42 Dose: 20 mg Saccharomyces Boulardii (Florastor) 250 mg PO BID [facility] Last Admin: 03/22/18 17:15 Dose: 250 mg Sitagliptin Phosphate (Januvia) 25 mg PO DAILY [facility] Last Admin: 03/22/18 09:46 Dose: 25 mg - Labs Labs: 03/22/18 07:35 03/22/18 10:06 PT 13.6 SECONDS (9.7-12.2) H 03/19/18 06:19 INR 1.2 03/19/18 06:19 APTT 28 SECONDS (21-34) D 03/19/18 06:19 - Constitutional Appears: Well - Head Exam Head Exam: ATRAUMATIC, NORMAL INSPECTION, NORMOCEPHALIC - Eye Exam Eye Exam: EOMI, Normal appearance, PERRL Pupil Exam: NORMAL ACCOMODATION, PERRL - ENT Exam ENT Exam: Mucous Membranes Moist, Normal Exam - Neck Exam Neck Exam: Full ROM, Normal Inspection. absent: Lymphadenopathy - Respiratory Exam Respiratory Exam: Clear to Ausculation Bilateral, NORMAL BREATHING PATTERN - Cardiovascular Exam Cardiovascular Exam: REGULAR RHYTHM, +S1, +S2, Murmur - GI/Abdominal Exam GI & Abdominal Exam: Soft, Normal Bowel Sounds. absent: Tenderness - Extremities Exam Extremities Exam: Full ROM, Normal Capillary Refill, Normal Inspection. absent : Joint Swelling, Pedal Edema - Back Exam Back Exam: NORMAL INSPECTION - Neurological Exam Neurological Exam: Alert, Awake, CN II-XII Intact, Normal Gait, Oriented x3 - Psychiatric Exam Psychiatric exam: Normal Affect, Normal Mood - Skin Skin Exam: Dry, Intact, Normal Color, Warm Assessment and Plan (1) Myocarditis Assessment & Plan: etiology viral bb acei Status: Acute (2) NSTEMI (non-ST elevated myocardial infarction) Assessment & Plan: nocad normal coronaries med rx Status: Acute (3) Chest pain due to CAD Status: Acute (4) HTN (hypertension) Status: Chronic (5) Tachyarrhythmia Status: Acute (6) Dyslipidemia Status: Chronic
--- NOTE | 2018-03-22 20:04 | CP.PCM.DIS ---
Provider - Provider Date of Admission: 03/17/18 22:44 Attending physician: Tyra Gifford DO Time Spent in preparation of Discharge (in minutes): 31 Diagnosis - Discharge Diagnosis (1) Acute myopericarditis Status: Acute Comment: Per cardiology patient is stable for discharge. Since patient is allergic to aspirin, patient to be discharged on Plavix, Crestor, metoprolol, lisinopril, patient follow-up with cardiology in 2 weeks at his [facility]. (2) NSTEMI (non-ST elevated myocardial infarction) Status: Acute (3) Dyslipidemia Status: Chronic (4) HTN (hypertension) Status: Chronic (5) Diabetes mellitus Status: Chronic (6) Bipolar disorder Status: Chronic (7) Prophylactic measure Status: Acute Hospital Course - Lab Results Lab Results: Micro Results 03/18/18 03:10 Blood-Venous Blood Culture - Preliminary NO GROWTH AFTER 4 DAYS 03/18/18 03:10 Blood-Venous Blood Culture - Preliminary NO GROWTH AFTER 4 DAYS 03/20/18 18:46 Naris MRSA Culture - Final MRSA NOT DETECTED 03/18/18 06:21 Naris MRSA Culture (Admit) - Final MRSA NOT DETECTED Most Recent Lab Values WBC 11.4 K/uL (4.8-10.8) H 03/22/18 07:35 RBC 3.57 Mil/uL (3.80-5.20) L 03/22/18 07:35 Hgb 9.8 g/dL (11.0-16.0) L 03/22/18 07:35 Hct 29.8 % (34.0-47.0) L 03/22/18 07:35 MCV 83.3 fL (81.0-99.0) 03/22/18 07:35 MCH 27.5 pg (27.0-31.0) 03/22/18 07:35 MCHC 33.0 g/dL (33.0-37.0) 03/22/18 07:35 RDW 13.1 % (11.5-14.5) 03/22/18 07:35 Plt Count 329 K/uL (130-400) 03/22/18 07:35 MPV 9.0 fL (7.2-11.7) 03/22/18 07:35 Neut % (Auto) 56.7 % (50.0-75.0) 03/22/18 07:35 Lymph % (Auto) 31.0 % (20.0-40.0) 03/22/18 07:35 [place] % (Auto) 9.1 % (0.0-10.0) 03/22/18 07:35 Eos % (Auto) 2.9 % (0.0-4.0) 03/22/18 07:35 Baso % (Auto) 0.3 % (0.0-2.0) 03/22/18 07:35 Neut # (Auto) 6.4 K/uL (1.8-7.0) 03/22/18 07:35 Lymph # (Auto) 3.5 K/uL (1.0-4.3) 03/22/18 07:35 [place] # (Auto) 1.0 K/uL (0.0-0.8) H 03/22/18 07:35 Eos # (Auto) 0.3 K/uL (0.0-0.7) 03/22/18 07:35 Baso # (Auto) 0.0 K/uL (0.0-0.2) 03/22/18 07:35 ESR 40 mm/hr (0-20) H 03/22/18 07:35 PT 13.6 SECONDS (9.7-12.2) H 03/19/18 06:19 INR 1.2 03/19/18 06:19 APTT 28 SECONDS (21-34) D 03/19/18 06:19 Puncture Site Rra 03/20/18 09:21 pCO2 24 mm/Hg (35-45) L 03/20/18 09:21 pO2 68 mm/Hg (80-100) L 03/20/18 09:21 HCO3 19.8 mmol/L (21-28) L 03/20/18 09:21 ABG pH 7.44 (7.35-7.45) 03/20/18 09:21 ABG Total CO2 17.0 mmol/L (22-28) L 03/20/18 09:21 ABG O2 Saturation 97.0 % (95-98) 03/20/18 09:21 ABG Base Excess -6.5 mmol/L (-2.0-3.0) L 03/20/18 09:21 ABG Hemoglobin 10.4 g/dL (11.7-17.4) L 03/20/18 09:21 ABG Carboxyhemoglobin 1.8 % (0.5-1.5) H 03/20/18 09:21 POC ABG HHb (Measured) 2.9 % (0.0-5.0) 03/20/18 09:21 ABG Methemoglobin 1.2 % (0.0-3.0) 03/20/18 09:21 Anibal Test Po 03/20/18 09:21 A-a O2 Difference 52.0 mm/Hg 03/20/18 09:21 Respiratory Index 0.8 03/20/18 09:21 Hgb O2 Saturation 94.1 % (95.0-98.0) L 03/20/18 09: FiO2 21.0 % 03/20/18 09:21 Sodium 139 mmol/L (132-148) 03/22/18 10:06 Potassium 3.8 mmol/L (3.6-5.2) 03/22/18 10:06 Chloride 108 mmol/L (98-107) H 03/22/18 10:06 Carbon Dioxide 20 mmol/L (22-30) L 03/22/18 10:06 Anion Gap 15 (10-20) 03/22/18 10:06 BUN 18 mg/dL (7-17) H 03/22/18 10:06 Creatinine 0.9 mg/dL (0.7-1.2) 03/22/18 10:06 Est GFR ( Amer) > 60 03/22/18 10:06 Est GFR (Non-Af Amer) > 60 03/22/18 10:06 POC Glucose (mg/dL) 256 mg/dL (65-110) H 03/22/18 11:15 Random Glucose 178 mg/dL (65-105) H 03/22/18 10:06 Hemoglobin A1c 9.7 % (4.2-6.5) H 03/17/18 21:00 Calcium 8.0 mg/dl (8.6-10.4) L 03/22/18 10:06 Phosphorus 2.9 mg/dL (2.5-4.5) 03/22/18 10:06 Magnesium 1.9 mg/dL (1.6-2.3) 03/22/18 10:06 Total Bilirubin 0.3 mg/dL (0.2-1.3) 03/22/18 10:06 AST 27 U/L (14-36) 03/22/18 10:06 ALT 28 U/L (9-52) 03/22/18 10:06 Alkaline Phosphatase 128 U/L (38-126) H 03/22/18 10:06 Total Creatine Kinase 145 U/L (30-135) H 03/20/18 09:42 CK-MB (Mass) 1.61 ng/mL (0.0-3.38) 03/20/18 09:42 Troponin I 0.4080 ng/mL (0.00-0.120) H* 03/20/18 09:42 C-Reactive Protein 40.10 mg/L (0.0-9.9) H 03/22/18 07:35 NT-Pro-B Natriuret Pep 3300 pg/mL (0-900) H 03/22/18 07:35 Total Protein 5.7 g/dL (6.3-8.3) L 03/22/18 10:06 Albumin 3.1 g/dL (3.5-5.0) L 03/22/18 10:06 Globulin 2.6 gm/dL (2.2-3.9) 03/22/18 10:06 Albumin/Globulin Ratio 1.2 (1.0-2.1) 03/22/18 10:06 Triglycerides 122 mg/dL (0-149) 03/18/18 03:10 Cholesterol 169 mg/dL (0-199) 03/18/18 03:10 LDL Cholesterol Direct 85 mg/dL (0-129) 03/18/18 03:10 HDL Cholesterol 53 mg/dL (30-70) 03/18/18 03:10 Free T4 1.24 ng/dL (0.78-2.19) 03/18/18 03:10 TSH 3rd Generation 3.34 mIU/L (0.46-4.68) 03/18/18 01:02 Urine Color Straw (YELLOW) 03/18/18 11:40 Urine Clarity Clear (Clear) 03/18/18 11:40 Urine pH 6.0 (5.0-8.0) 03/18/18 11:40 Ur Specific [place] 1.020 (1.003-1.030) 03/18/18 11:40 Urine Protein Negative mg/dL (NEGATIVE) 03/18/18 11:40 Urine Glucose (UA) 3+ mg/dL (Normal) H 03/18/18 11:40 Urine Ketones 1+ mg/dL (NEGATIVE) H 03/18/18 11:40 Urine Blood Negative (NEGATIVE) 03/18/18 11:40 Urine Nitrate Negative (NEGATIVE) 03/18/18 11:40 Urine Bilirubin Negative (NEGATIVE) 03/18/18 11:40 Urine Urobilinogen Normal mg/dL (0.2-1.0) 03/18/18 11:40 Ur Leukocyte Esterase Neg [place]/uL (Negative) 03/18/18 11:40 Urine WBC (Auto) 1 /hpf (0-5) 03/18/18 11:40 Urine RBC (Auto) < 1 /hpf (0-3) 03/18/18 11:40 Ur Squamous Epith Cells 1 /hpf (0-5) 03/18/18 11:40 Stool Occult Blood Positive (NEGATIVE) H 03/22/18 15:12 Urine Opiates Screen Negative (NEGATIVE) 03/18/18 11:40 Urine Methadone Screen Negative (NEGATIVE) 03/18/18 11:40 Ur Barbiturates Screen Negative (NEGATIVE) 03/18/18 11:40 Ur Phencyclidine Scrn Negative (NEGATIVE) 03/18/18 11:40 Ur Amphetamines Screen Negative (NEGATIVE) 03/18/18 11:40 U Benzodiazepines Scrn Negative (NEGATIVE) 03/18/18 11:40 U Oth Cocaine Metabols Negative (NEGATIVE) 03/18/18 11:40 U Cannabinoids Screen Negative (NEGATIVE) 03/18/18 11:40 B-Hydroxybutyrate 0.22 mM (0.02-0.27) 03/17/18 22:10 Ur L.pneumophila Ag Negative (NEGATIVE) 03/18/18 09:15 Mycoplasma pneumon IgM Negative (NEGATIVE) 03/18/18 09:15 Ur Strep pneumoniae Ag Not detected (Not Detected) 03/18/18 09:26 Blood Type O POSITIVE 03/17/18 21:03 Antibody Screen Negative 03/17/18 21:03 - Hospital Course Hospital Course: as per resident H&P History of Present Illness: This patient is a 57 year old female with past medical history of fibromyalgia, BiPolar Disorder, Hypertension, and diabetes who presented to the E. complaining of 20/10 substernal, sharp chest pain that radiated to back. Her chest pain is worse with deep inspiration. Patient states her pain started around 7pm on 03/17/18 while singing in the house. Her chest pain worsened, which prompted her to come to the hospital. Patient has been experiencing chest pain intermittently at rest and during exertion for the past couple of days. She was on a sample unspecified medication by her ui developer with [employer] to control her chest pain. Her insurance did not cover that medication, and she can no longer go to the ui developer with [employer] anymore because they being investigated. She admits to not taking any of her medications for the past 2 weeks. Associated with her chest pain is SOB, nausea, and non-bloody vomiting x 5. Patient also complains of increasing shortness of breath while climbing the stairs. She denies any orthopnea. ROS POSITVES: Chest Pain, SOB, Nausea, Non-Bloody Vomiting, Dyspnea on exertion NEGATIVES: Fever, chills, headache, abdominal pain, changes in bowel habits, urinary symptoms. PMHx: fibromyalgia, BiPolar Disorder, Hypertension, diabetes PSHx: Hysterectomy, Umbilical Hernia Repair Allergies: ASA (Poor Circulation/Black Toe and Nails), General Anaesthesia ( Difficulty awakening) SocialHx: Denies tobacco, EtOH, and Illicit Drug use Hos: Hysterctomy FamHx: Sister - Lupus, Brother - Heart Disease (Unspecified) Meds: As per SEP PMD: Dr. Rodas in [place] Patient admitted to [facility]. Cardiology consulted. Patient underwent a cardiac cath showing normal coronaries. Patient noted to have an echo showing systolic dysfunction about 35-40%. Patient diagnosed with acute myopericarditis. Patient is allergic to aspirin unable to give secondary to aspirin and possible implication for other NSAIDs. Patient stabilized to telemetry. Patient's proBNP improving and clinically improving. Per cardiology patient is stable for discharge. Since patient is allergic to aspirin, patient to be discharged on Plavix, Crestor, metoprolol, lisinopril, patient follow-up with cardiology in 2 weeks at his [place] office. this is a summary of patient's hospitalization. please see EMR for full detail of record. - Date & Time of H&P Date of H&P: 03/17/18 Time of H&P: 23:57 Discharge Exam - Head Exam Head Exam: ATRAUMATIC, NORMAL INSPECTION, NORMOCEPHALIC - Eye Exam Eye Exam: EOMI - ENT Exam ENT Exam: Mucous Membranes Moist - Respiratory Exam Respiratory Exam: Clear to PA & Lateral, NORMAL BREATHING PATTERN. absent: Rales, Rhonchi - Cardiovascular Exam Cardiovascular Exam: REGULAR RHYTHM, +S1, +S2 - GI/Abdominal Exam GI & Abdominal Exam: Normal Bowel Sounds, Soft. absent: Distended, Firm, Guarding, Rebound, Rigid, Tenderness - Extremities Exam Extremities exam: pedal pulses present - Neurological Exam Neurological exam: Alert, CN II-XII Intact, Oriented x3 - Psychiatric Exam Psychiatric exam: Normal Affect, Normal Mood - Skin Skin Exam: Dry, Intact, Normal Color, Warm Discharge Plan - Discharge Medications Prescriptions: Clopidogrel [Plavix] 75 mg PO DAILY #30 tab Lisinopril [Zestril] 2.5 mg PO DAILY #30 tab metFORMIN [glucOPHAGE] 1,000 mg PO BID #60 tab Metoprolol Tartrate [Lopressor] 50 mg PO BID #60 tablet Moxifloxacin [Avelox] 400 mg PO DAILY #1 tab Rosuvastatin Calcium [Crestor] 20 mg PO HS #30 tab - Follow Up Plan Condition: STABLE Disposition: HOME/ ROUTINE Instructions: Heart Healthy Diet, Heart Attack (DC), Coronary Heart Disease (DC ), Heart Disease in Diabetics , Heart Failure (DC) Additional Instructions: Patient is medically stable for discharge. Patient to follow up with Cardiology (Dr. Duenas) within 2 weeks in his office. Patient is advised if she feels any chest pain and/or shortness of breath to return to ER immediately. Medications upon discharge include: Plavix 75 mg tab po daily lopressor 50 mg po twice a day lisinopril 2.5 mg tablet once daily metformin increased to 1000 mg twice a day Crestor 20 mg tablet PO Patient advised fluid restriction, instructed to follow up with psychiatry. No change to psych meds while inpatient. Referrals: Jose Duenas MD [Staff Provider] - 1 Week Clinical Quality Measures - CQM - Heart Failure Ejection Fraction: Less Than 40 % Left Ventricular Function to be assessed after discharge: Yes JERALD Inhibitor Prescribed: Yes Beta-Zakia Prescribed: Metoprolol Succinate Angiotensin II Receptor Zakia Prescribed: No Contraindication/Reason for not providing: given jerald AnticoagulationTherapy for Atrial Fibrillation/Atrialflutter: No Contraindication/Reason for not providing: not clinically indicated Aldosterone Antagonist Prescribed: No Contraindication/Reason for not providing: not clinically indicated Hydralazine Nitrate Prescribed: No Contraindication/Reason for not providing: not clinically indicated Implantable Cardioverter Defibrillator Therapy: No Contraindication/Reason for not providing: not clinically indicated Cardiac Resynchronization Therapy Prescribed: No Contraindication/Reason for not providing: not clinically indicated Will be discharged to: Home Follow Up Date (must be within 7 days from discharge): 03/22/18 Follow Up Time: 09:00 - Date & Time of Discharge Summary Date of Discharge Summary: 03/22/18 Time of Discharge Summary: 20:03
== END 2018-03-22 19:58 | disposition home or self-care (01) | DRG 281 ==
LOC: C.ER 20:38 → C.9I 22:44 → C.6T 03-20 18:24
PROVIDERS: ADMIT Hospitalist; ATTEND Hospitalist
PROC: 4A023N7 Measurement of Cardiac Sampling and Pressure, Left Heart, Percutaneous Approach (ICD-10-PCS; principal; 2018-03-18)
PROC: B211YZZ Fluoroscopy of Multiple Coronary Arteries using Other Contrast (ICD-10-PCS; 2018-03-18)
PROC: B215YZZ Fluoroscopy of Left Heart using Other Contrast (ICD-10-PCS; 2018-03-18)
DX: I21.4 Non-ST elevation (NSTEMI) myocardial infarction (principal); I31.9 Disease of pericardium, unspecified; I42.9 Cardiomyopathy, unspecified; E78.5 Hyperlipidemia, unspecified; I11.0 Hypertensive heart disease with heart failure; F31.9 Bipolar disorder, unspecified; E11.65 Type 2 diabetes mellitus with hyperglycemia; I50.9 Heart failure, unspecified; M79.7 Fibromyalgia; M81.0 Age-related osteoporosis without current pathological fracture; Z88.8 Allergy status to other drugs, medicaments and biological substances; Z79.4 Long term (current) use of insulin